=== PATIENT | male | born 1950 | race Caucasian/White ===

== ENCOUNTER 2024-12-01 13:19 | Outpatient (OUT) | payer MEDICARE, SELFPAY ==
--- NOTE | 2024-12-01 14:03 | PM.PRESUREVA ---
History of Present Illness History of Present Illness Chief complaint: left kidney stone Narrative: Patient presents for presurgical testing. Please see HPI from Dr. Haley dated November 21, 2024. Review of Systems ROS Narrative Please see ROS from Dr. Haley dated November 21, 2024. [facility] Medical History (Updated 12/01/24 @ 13:36 by Nerissa Sheppard NP) Amputation toe ?S98.139A - Complete traumatic amputation of one unspecified lesser toe, initial encounter (ICD-10) Ureteral stone ?N20.1 - Calculus of ureter (ICD-10) Hypertension ?I10 - Essential (primary) hypertension (ICD-10) Hypercholesterolemia ?E78.00 - Pure hypercholesterolemia, unspecified (ICD-10) Atrial fibrillation ?I48.91 - Unspecified atrial fibrillation (ICD-10) Asthma ?J45.909 - Unspecified asthma, uncomplicated (ICD-10) Kidney stones ?N20.0 - Calculus of kidney (ICD-10) Anticoagulated ?Z79.01 - [facility] (current) use of anticoagulants (ICD-10) Bradycardia ?R00.1 - Bradycardia, unspecified (ICD-10) History of cardioversion ?Z92.89 - Personal history of other medical treatment (ICD-10) Right bundle branch block ?I45.10 - Unspecified right bundle-branch block (ICD-10) Surgical History (Updated 12/01/24 @ 13:52 by Nerissa Sheppard NP) S/P cataract extraction and insertion of intraocular lens ?Z98.49 - Cataract extraction status, unspecified eye (ICD-10) ?Z96.1 - Presence of intraocular lens (ICD-10) H/O colonoscopy ?Z98.890 - Other specified postprocedural states (ICD-10) History of lithotripsy ?Z98.890 - Other specified postprocedural states (ICD-10) Family History (Updated 12/01/24 @ 13:52 by Nerissa Sheppard NP) Other Family history of Parkinson disease Family history of colon cancer Family history of hypertension Social History (Updated 12/01/24 @ 13:48 by Nerissa Sheppard NP) Within the past year, how often did you have a drink containing alcohol: never Score interpretation: A score less than 4 is consistent with normal alcohol consumption. Smoking status: Never smoker Non-prescribed substance use: denies use Highest level of school completed/degree received: some college, no degree Meds Home Medications and Allergies Home Medications ?Medication ?Instructions ?Recorded ?Confirmed ?Type albuterol sulfate 90 mcg/actuation 2 inh inhalation Q6H PRN 12/01/24 12/01/24 History aerosol inhaler bronchospasm amlodipine 10 mg-valsartan 160 mg 1 tab PO DAILY 12/01/24 12/01/24 History tablet aspirin 81 mg tablet,delayed 81 mg PO DAILY 12/01/24 12/01/24 History release (Adult Aspirin Regimen) atorvastatin 20 mg tablet 20 mg PO DAILY 12/01/24 12/01/24 History budesonide-formoterol HFA 160 1 inh inhalation Q12H 12/01/24 12/01/24 History mcg-4.5 mcg/actuation aerosol inhaler dofetilide 250 mcg capsule 250 mcg PO BID 12/01/24 12/01/24 History metoprolol succinate 50 mg 50 mg PO DAILY 12/01/24 12/01/24 History tablet,extended release 24 hr rivaroxaban 20 mg tablet (Xarelto) 20 mg PO Q24H 12/01/24 12/01/24 History tamsulosin 0.4 mg capsule 0.4 mg PO DAILY 12/01/24 12/01/24 History Allergies Allergy/AdvReac Type Severity Reaction Status Date / Time No Known Drug Allergies Allergy Verified 12/01/24 13:44 Exam Narrative Exam Narrative: Constitutional: Awake, alert, comfortable, well-appearing, nontoxic, interactive, vital signs as charted Head: Normocephalic, atraumatic Neck: Supple, normal appearance, normal range of motion, no meningeal signs, no lymphadenopathy Respiratory: No respiratory distress, breath sounds clear Cardiovascular: Regular rate and rhythm, strong and regular heart tones Abdomen: Nontender, normal bowel sounds, soft, no CVA tenderness Musculoskeletal: Normal gait, no swelling or edema Skin: No rashes or induration, no lesions, only visible skin inspected Neuro: No neurological deficits, normal sensation Psychiatric: Oriented ?3, normal affect Assessment and Plan Assessment and Plan (1) Kidney stones: Plan Left ESWL, possible cystoscopy, left retrograde, left ureteroscopy, holmium laser, possible left stent placement scheduled with Dr. Haley December 15, 2024.
[2024-12-01 14:11] LABS: Basophils Absolute Auto 0.1 10^3/uL (0.0-0.1); Basophils Percent Auto 0.5 % (0.2-2.0); Eosinophils Absolute Auto 0.1 10^3/uL (0.0-0.7); Eosinophils Percent Auto 1.3 % (0.9-7.0); Hematocrit 39.7 % (42.0-54.0); Hemoglobin 13.5 g/dL (14.0-18.0); Immature Granulocytes Abs Auto 0.07 10^3/uL (0.00-0.03); Immature Granulocytes Pct Auto 0.7 % (0.0-0.5); Lymphocytes Absolute Auto 1.7 10^3/uL (1.2-3.8); Lymphocytes Percent Auto 17.6 % (20.5-60.0); Mean Corpuscular Volume 88.2 fL (80.0-94.0); Mean Platelet Volume 9.3 fL (9.5-13.5); Monocytes Percent Auto 10.6 % (1.7-12.0); Neutrophils Absolute Auto 6.5 10^3/uL (1.4-6.5); Neutrophils Percent Auto 69.3 % (43.0-75.0); Platelet Count 233 10^3/uL (150-450); Red Cell Distribution Width 12.7 % (11.0-15.0); White Blood Count 9.4 10^3/uL (4.0-11.0)
[2024-12-01 14:17] LABS: Anion Gap 13.6; BUN Creatinine Ratio 9.6; Calcium 8.8 mg/dL (8.5-10.1); Carbon Dioxide 25.1 mmol/L (21.0-32.0); Chloride 103 mmol/L (98-107); Estimated GFR (African America >60 (>=60 mL/min/1.73m^2); Estimated GFR (Non-African Ame >60 (>=60 mL/min/1.73m^2); Glucose 153 mg/dL (74-106); Potassium 3.7 mmol/L (3.5-5.1); Sodium 138 mmol/L (136-145)
[2024-12-01 14:39] LABS: INR 1.17; Partial Thromboplastin Time 35.8 sec (22.3-36.2); Prothrombin Time 12.2 sec (9.0-11.6)
== END 2024-12-01 13:20 | disposition home or self-care (01) ==
LOC: PST 13:20
PROVIDERS: PCP Family Medicine; Visit Provider Urology
DX: Z01.812 Encounter for preprocedural laboratory examination (principal); Z01.818 Encounter for other preprocedural examination; N20.0 Calculus of kidney
CPT/HCPCS: 80048; 85025; 85610; 85730; G0463

== ENCOUNTER 2024-12-15 07:35 | Day surgery (SDC) | payer MEDICARE, SELFPAY ==
[2024-12-01 14:00] VITALS: BP 156/71; PULSE 77; TEMP 36.5; O2SAT 96; BMI 27.4
[2024-12-15] VITALS (12 sets, daily range): BP systolic 102–138; BP diastolic 62–76; PULSE 59–80; TEMP 36.4–36.6; O2SAT 90–95; BMI 27.1
--- OUTSIDE RECORDS SUMMARY | 2024-12-15 07:39 | XMS_ITS | CCD ---
Author Organization [facility] Care Team Providers Care Hall Clerk Name Role Phone Zane Velasco Unavailable Unavailable Unavailable ZANE VELASCO Primary Care Physician [phone] Unavailable Unavailable ISAURA DEL ROSARIO Consulting Unavailable ISAURA DEL ROSARIO Admitting Unavailable KRISTA, DR NORRIS Primary Care Unavailable ISAURA DEL ROSARIO Attending Unavailable ISAURA DEL ROSARIO Admitting Unavailable KRISTA, DR NORRIS Primary Care Unavailable HANANE, DR NANCY Greene Consulting Unavailable ISAURA DEL ROSARIO Attending Unavailable ISAURA DEL ROSARIO Consulting Unavailable MEKORYUK, DR SILVERIO Camilo Consulting Unavailable KRISTA, DR NORRIS Primary Care Unavailable CALLUM HATFIELD, DR TRINITY Greenberg Attending Unavaildany NOLEN JR, DR TRINITY Greenberg Admitting Unavaildany NOLEN JR, DR TRINITY Greenberg Consulting Unavaildany e Unavailable Unavailable DO Zane Velasco Primary Care Provider [phone] DO Herminio Rogel Emergency Provider DO Filipe Reynolds Admit Provider DO Filipe Reynolds Attending Provider MD Asif Bautista Attending Provider [phone] MD Ozzy Chan Other Provider Ozzy Chan Unavailable Unavailable Unavailable Sandra Rai Attending Unavailable Sandra Rai Referring Unavailable Dr. Zane Velasco Primary Care Unavaila Sandra Mohamud Attending Unavailable Sandra Rai Referring Unavailable Dr. Zane Velasco Primary Care Unavaila ble Zane Velasco DO Primary Care Provider [phone] DO Zane Velasco Primary Care Provider [phone] ZAN Del Rosario Attending Provider Zane Velasco DO Primary Care Provider Miguel Ángel ZULUAGA, Isaura Swanson Attending Provider Zane Velasco DO Primary Care Provider [phone] Miguel Ángel ZULUAGA, Isaura Swanson Attending Provider Nick Metz MD Attending Provider Nick METZ Attending Unavailable Nick METZ Attending Unavailable MIGUEL ÁNGEL, ISAURA Swanson Attending Unavailable MIGUEL ÁNGEL, ISAURA Swanson Attending Unavailable Miguel Ángel, Isaura Swanson Admitting Unavailable Miguel Ángel, Isaura Swanson Attending Unavailable Zane Velasco Primary Care Unavailable Miguel Ángel, Isaura Swanson Admitting Unavailable Miguel Ángel, Isaura Swanson Attending Unavailable Zane Velasco [facility] Unavailable Nick Metz Attending Unavailable [facility] Un[facility] Nick Metz Admitting Unavailable Zane Velasco DO Primary Care Provider Frank LEWIS Kevin Yari Unavailable [phone] Zane Velasco DO Primary Care Provider SANDRA RAI Attending Unavailable SANDRA RAI Referring Unavailable ZANE VELASCO [facility] Unavailable SANDRA RAI Attending Unavailable ZANE VELASCO [facility] Unavailable Allergies Allergy Classification Reported Allergen(s) Allergy Type Date of Onset Reaction(s) Facility (1 source) No Known Medication Allergies; Translations: [No Known Medication Allergies] Propensity to adverse reactions (disorder) [facility] Repository Medications Current Medications Medication Drug Class(es) Dates Sig (Normalized) Sig (Original) [id number] 200 actuat albuterol 0.09 mg/actuat metered dose inhaler (20 sources) beta2-Adrenergic Agonist Start: 05-10-2024 take 2 puff(s) by mouth every four hours as needed albuterol HFA 90 mcg/act inhaler Indications: Asthma, unspecified asthma severity, unspecified whether complicated, unspecified whether persistent ([facility]) INHALE 2 PUFFS BY MOUTH EVERY 4 HOURS NEEDED FOR SHORTNESS OF BREATH 18 g 05/10/2024 Active Start: 03-09-2024 Albuterol Sulf ate (Ventolin Hfa) 90 mcg/actuation HFA aerosol inhaler Active 2 INH INHALATION Q4H as needed for shortness of breath or wheezing 1 March 09, 2024 11:43am Start: 07-16-2021 take 2 puff(s) by in halation every six hours albuterol 90 mcg/actuation inhaler Inhale 2 puffs every 6 hours if needed. 07/16/2021 Active Start: 07-16-2021 take 2 puff(s) by mo [facility] every six hours as needed Albuterol Sulfate HFA 108 (90 Base) MCG/ACT Inhalation Aerosol Solution INHALE 2 PUFFS BY MOUTH EVERY 6 HOURS NEEDED Quantity: 18 Refills: 0 Ordered: 07-Oct-2021 DO Start : 16-Jul-2021 Active Start: 10-19-2019 End: 03-09-2024 take 1 puff(s) by inhalation every four hours as needed for wheezing Albuterol Sulfate (Ventolin Hfa) 90 mcg/actuation HFA aerosol inhaler Discontinued 2 PUFF INHALATION Q4H as needed for shortness of breath or wheezing 8.5 30 March 08, 2024 1:59pm March 09, 2024 11:48am take 1 puff(s) by in halation every four hours as needed Ventolin HFA 108 (90 Base) MCG/ACT Inhalation Aerosol Solution INHALE 1 PUFF EVERY 4 HOURS NEEDED. Quantity: 0 Refills: 0 Ordered: 29-Oct-2021 DO Active take 2 puff(s) by in halation every six hours as needed Ventolin HFA 108 (90 Base) MCG/ACT 2 puffs Inhalation every 6 hrs as needed for 30 days PRN Active take 1 puff(s) by in halation every four hours as needed Ventolin HFA 108 (90 Base) MCG/ACT 1 puff as needed Inhalation every 4 hrs PRN Active albuterol CFC free 90 mcg/inh inhalation aerosol (6 sources) Start: 12-24-2021 take 2 puff(s) by inhalation every six hours as needed for wheezing albuterol CFC free 90 mcg/inh inhalation aerosol = 2 puff(s), Inhalation, q6hr, PRN Shortness of breath or wheezing, Refills(s) 0 Start Date: 12/24/21 Status: Ordered Start: 12-24-2021 albuterol CFC free 90 mcg/inh inhalation aerosol Refills(s) 0 Start Date: 12/24/21 Status: Ordered amLODIPine 10 mg / valsartan 160 mg oral tablet (10 sources) Dihydropyridine Calcium Channel Theodora, Angiotensin 2 Receptor Theodora Start: 02-23-2024 End: 08-01-2025 take 1 tablet by mouth once daily amlodipine-valsartan (Exforge) 10-160 mg tablet Indications: Essential (primary) hypertension Take 1 tablet by mouth once daily. 90 tablet 3 08/01/2024 08/01/2025 Active Start: 05-21-2023 take 1 tablet by shady th once daily amLODIPine Besylate-Valsartan 10-160 MG Oral Tablet TAKE 1 TABLET DAILY. Quantity: 90 Refills: 3 Ordered: 21-May-2023 Sandra Rai MD Start : 21-May-2023 Active stop amlodipine 10mg daily aspirin 81 mg oral capsule (20 sources) Platelet Aggregation Inhibitor, Nonsteroidal Anti-inflammatory Drug Start: 12-24-2021 aspirin 81 mg ora l capsule 81 mg = 1 cap(s), Oral, , Refills(s) 0, Blood Thinner Start Date: 12/24/21 Status: Ordered Start: 10-29-2021 End: 12-08-2024 take 1 tablet by mouth two times weekly aspirin 81 mg EC tablet Take 1 tablet (81 mg) by mouth 2 times a week. 10/29/2021 12/08/2024 Discontinued (Med List Cleanup) Start: 10-29-2021 Aspirin EC 81 MG TBEC TAKE 1 TABLET Weekly Quantity: 12 Refills: 3 Ordered: 11-Nov-2022 Sandra Rai MD Start : 29-Oct-2021 Active Start: 01-25-2020 take 1 tablet by shady th two times weekly Aspirin 81 mg Tablet,Chewable Active 81 MG PO Twice a Week January 25, 2020 12:00am twice a week Thursday and Thursday atorvastatin 20 mg oral tablet (20 sources) HMG-CoA Reductase Inhibitor Start: 01-25-2020 End: 11-25-2024 take 1 tablet by mouth once daily at bedtime atorvastatin (Lipitor) 20 mg tablet Indications: Essential hypertension Take 1 tablet (20 mg) by mouth once daily at bedtime. 90 tablet 3 11/26/2023 Active 120 actuat budesonide 0.16 mg/actuat / formoterol fumarate 0.0045 mg/actuat metered dose inhaler (20 sources) Corticosteroid, beta2-Adrenergic Agonist Start: 08-19-2024 take 1 puff(s) by inhalation twice daily Budesonide-Formote rol 160-4.5 mcg/actuation HFA aerosol inhaler Active 2 PUFF INHALATION Twice daily 3 90 August 19, 2024 12:07pm Start: 02-17-2023 take 2 puff(s) by mo uth twice daily Symbicort 160-4.5 MCG/ACT inhaler Indications: Unspecified asthma, uncomplicated ([facility]) INHALE 2 PUFFS BY MOUTH TWICE DAILY 30.6 g 3 02/17/2023 Active Start: 10-19-2019 End: 08-19-2024 take 1 puff(s) by inhalation twice daily Budesonide-Formoterol 160-4.5 mcg/actuation Hfa Aerosol Inhaler Discontinued 2 PUFF INHALATION Twice daily October 19, 2019 1:00am August 19, 2024 12:08pm Start: 10-19-2019 End: 08-19-2024 take 1 puff(s) by inhalation twice daily Budesonide-Formoterol 160-4.5 mcg/actuation Hfa Aerosol Inhaler Discontinued 2 PUFF INHALATION Twice daily October 19, 2019 12:00am August 19, 2024 11:08am Start: 10-19-2019 take 1 puff(s) by in halation twice daily Budesonide-Formoterol Active 2 PUFF INHALATION Twice daily October 19, 2019 1:00am budesonide-formo teroL (Symbicort) 160-4.5 mcg/actuation inhaler Use as directed Active budesonide-formo teroL (Symbicort) 160-4.5 mcg/actuation inhaler Use as directed 0 Active Budesonide-Formo terol Fumarate 160-4.5 MCG/ACT Inhalation Aerosol USE DIRECTED. Quantity: 0 Refills: 0 Ordered: 29-Oct-2021 DO Active take 2 puff(s) by in halation twice daily Budesonide-Formoterol Fumarate 160-4.5 MCG/ACT 2 puffs Inhalation Twice a day for 30 days Active budesonide-formoterol 160 mcg-4.5 mcg/inh Inh Aer w/adapter (6 sources) Start: 12-24-2021 take 1 puff(s) by inhalation twice daily budesonide-formoterol 160 mcg-4.5 mcg/inh Inh Aer w/adapter puff(s), Inhalation, BID, Refill(s) 0, Asthma Start Date: 12/24/21 Status: Ordered Start: 12-24-2021 take 1 puff(s) by in halation twice daily budesonide-formoterol 160 mcg-4.5 mcg/inh Inh Aer w/adapter puff(s), Inhalation, BID, Refill(s) 0 Start Date: 12/24/21 Status: Ordered dofetilide 0.25 mg oral capsule (20 sources) Antiarrhythmic Start: 04-11-2024 End: 04-11-2025 take 1 capsule by mouth twice daily dofetilide (Tikosyn) 250 mcg capsule Indications: Persistent atrial fibrillation (Multi) Take 1 capsule (250 mcg) by mouth 2 times a day. 180 capsule 3 04/11/2024 04/11/2025 Active Start: 12-24-2021 take 1 capsule by [facility] twice daily dofetilide 250 mcg oral capsule 250 mcg = 1 cap(s), Oral, BID, Refills(s) 0, Irregular heartbeat Start Date: 12/24/21 Status: Ordered Start: 12-24-2021 take 1 capsule by [facility] twice daily dofetilide 250 mcg oral capsule 250 mcg = 1 cap(s), Oral, BID, Refills(s) 0, Irregular heartbeat Start Date: 12/24/21 Status: Ordered Start: 01-26-2020 take 1 capsule by [facility] every twelve hours Dofetilide 250 mcg Capsule Active 250 MCG PO Q12H 180 90 January 26, 2020 12:00am 24 hr metoprolol succinate 50 mg extended release oral tablet (20 sources) beta-Adrenergic Theodora Start: 01-26-2020 End: 08-09-2024 take 1 tablet by mouth once daily metoprolol succinate XL (Toprol-XL) 50 mg 24 hr tablet Indications: Essential hypertension , Persistent atrial fibrillation (Multi) TAKE 1 TABLET BY MOUTH ONCE DAILY 90 tablet 3 08/01/2024 Active Start: 10-19-2019 End: 01-27-2020 Metoprolol Succinate 100 mg Capsule,Sprinkle,Er 24hr Discontinued 150 MG PO Daily October 19, 2019 1:00am January 27, 2020 12:01pm Start: 10-19-2019 End: 01-27-2020 take 150 mg by mouth once daily Metoprolol Succinate Discontinued 150 MG PO Daily October 19, 2019 1:00am January 27, 2020 12:01pm take 1 tablet by shady th once daily metoprolol succinate XL (Toprol-XL) 100 MG 24 hr tablet Take 100 mg by mouth 1 (one) time each day at the same time. Active rivaroxaban 20 mg oral tablet (20 sources) Factor Xa Inhibitor Start: 10-19-2019 End: 06-27-2025 take 1 tablet by mouth once daily Xarelto 20 mg tablet Indications: Persistent atrial fibrillation (Multi) Take 1 tablet (20 mg) by mouth once daily. 90 tablet 3 06/27/2024 06/27/2025 Active tamsulosin hydrochloride 0.4 mg oral capsule (1 source) alpha-Adrenergic Theodora Start: 10-14-2024 take 1 capsule by mouth once daily tamsulosin (Flomax) 0.4 mg 24 hr capsule Take 1 capsule (0.4 mg) by mouth once daily. 10/14/2024 Active valACYclovir 1000 mg oral tablet (1 source) Herpesvirus Nucleoside Analog DNA Polymerase Inhibitor, Herpes Simplex Virus Nucleoside Analog DNA Polymerase Inhibitor, Herpes Zoster Virus Nucleoside Analog DNA Polymerase Inhibitor valACYclovir (Valtrex) 1 g tablet 1 (one) time each day at the same time. Active Completed/Discontinued Medications Medication Drug Class(es) Dates Sig (Normalized) Sig (Original) amiodarone hydrochloride 200 mg oral tablet (14 sources) Antiarrhythmic Start: 10-20-2019 End: 01-27-2020 take 1 tablet by mouth once daily Amiodarone 200 mg tablet Discontinued 200 MG PO Daily October 20, 2019 1:00am January 27, 2020 12:01pm Start: 10-19-2019 End: 10-20-2019 take 1 tablet by mouth twice daily Amiodarone 200 mg Tablet Discontinued 200 MG PO Twice daily October 19, 2019 1:00am October 20, 2019 2:40pm amLODIPine 10 mg oral tablet (19 sources) Dihydropyridine Calcium Channel Theodora Start: 08-22-2013 End: 03-08-2024 take 1 tablet by mouth once daily Amlodipine 10 mg Tablet Discontinued 10 MG PO Daily October 19, 2019 1:00am March 08, 2024 1:43pm azithromycin 250 mg oral tablet (6 sources) Macrolide Antimicrobial Start: 01-07-2023 End: 03-08-2024 take 1 tablet by mouth once daily Azithromycin 250 mg tablet Discontinued 250 MG PO Daily 4 January 07, 2023 12:00am March 08, 2024 1:41pm cefdinir 300 mg oral capsule (6 sources) Cephalosporin Antibacterial Start: 01-07-2023 End: 03-08-2024 take 1 capsule by mouth twice daily Cefdinir 300 mg capsule Discontinued 300 MG PO Twice daily 8 January 07, 2023 12:00am March 08, 2024 1:41pm predniSONE 10 mg oral tablet (6 sources) Start: 01-07-2023 End: 03-08-2024 Prednisone 10 mg tablet Discontinued 10 MG PO Daily January 07, 2023 12:00am March 08, 2024 1:41pm Take 4 tabs daily x 3 days, then 2 tabs daily x 3 days, then 1 tab daily x 7 days then stop. Take with food. Problems Active Problems Problem Classification Problem Date Documented Da te Episodic/Chronic Acute bronchitis (7 sources) Acute bronchitis; Translations: [Acute bronchitis, unspecified] 01-05-2023 Episodic Asthma (11 sources) Asthma; Translations: [Asthma, unspecified type, unspecified] Onset: 02-17-2023 12-24-2021 Chronic Cardiac dysrhythmias (20 sources) Persistent atrial fibrillation; Translations: [Atrial fibrillation] Onset: 02-17-2023 12-24-2021 Chronic Chronic obstructive pulmonary disease and bronchiectasis (20 sources) Acute exacerbation of chronic obstructive airways disease; Translations: [Chronic obstructive pulmonary disease with (acute) exacerbation] 01-05-2023 Chronic Conduction disorders (11 sources) Right bundle branch block; Translations: [Right bundle branch block] Onset: 06-19-2023 06-19-2023 Chronic Coronary atherosclerosis and other heart disease (7 sources) Coronary atherosclerosis; Translations: [Atherosclerotic heart disease of [place] coronary artery without angina pectoris] 01-25-2020 Chronic Disorders of lipid metabolism (20 sources) Hypercholesterolemi a; Translations: [Dyslipidemia] Onset: 02-17-2023 12-24-2021 Chronic Essential hypertension (20 sources) Essential hypertension; Translations: [Unspecified essential hypertension] Onset: 02-17-2023 12-24-2021 Chronic Gastrointestinal hemorrhage (6 sources) Hematochezia; Translations: [Melena] 02-22-2024 Episodic Genitourinary symptoms and ill-defined conditions (1 source) Microscopic hematuria; Translations: [Asymptomatic microscopic hematuria] Onset: 02-12-2022 Episodic Other aftercare (6 sources) Drug therapy finding; Translations: [Long-term (current) use of other medications] Episodic Other aftercare (1 source) Long-term current use of anticoagulant; Translations: [truck terminal manager (current) use of anticoagulants] Onset: 02-12-2022 Episodic Other aftercare (2 sources) Taking high risk medication; Translations: [Other intermodal dispatcher (current) drug therapy] 11-26-2023 Episodic Other nutritional; endocrine; and metabolic disorders (12 sources) Overweight in adulthood with body mass index of 25 or more but less than 30; Translations: [Overweight] Onset: 06-19-2023 11-26-2023 Episodic Other nutritional; endocrine; and metabolic disorders (1 source) Overweight; Translations: [Overweight] 12-08-2024 Episodic Other upper respiratory infections (9 sources) Upper respiratory infection; Translations: [Acute upper respiratory infection, unspecified] 01-05-2023 Episodic Respiratory failure; insufficiency; arrest (adult) (6 sources) Acute respiratory failure; Translations: [Acute respiratory failure with hypoxia] 01-07-2023 Episodic Unclassified (2 sources) Asymptomatic microscopic hematuria 02-17-2023 Unclassified (2 sources) Drug therapy finding 02-17-2023 Unclassified (3 sources) Patient encounter status 02-17-2023 Unclassified (2 sources) Other persistent atrial fibrillation; Translations: [Other persistent atrial fibrillation] Onset: 06-19-2023 Viral infection (5 sources) Herpes zoster 01-08-2022 Episodic Past or Other Problems Problem Classification Problem Date Documented Date Episodic/Chronic Calculus of urinary tract (15 sources) Kidney stone; Translations: [Calculus of kidney] Onset: 12-24-2021 Episodic Other nutritional; endocrine; and metabolic disorders (2 sources) Body mass index (BMI) 27.0-27.9, adult; Translations: [Body mass index (BMI) 27.0-27.9, adult] Onset: 07-12-2024 Episodic Other screening for suspected conditions (not mental disorders or infectious disease) (20 sources) Electrocardiogram abnormal; Translations: [Nonspecific abnormal electrocardiogram [ECG] [EKG]] Onset: 02-12-2022 Episodic Screening and history of mental health and substance abuse codes (14 sources) Ex-smoker; Translations: [Personal history of tobacco use] Onset: 06-19-2023 11-26-2023 Episodic Unclassified (2 sources) Onset: 07-12-2024 07-12-2024 Results Test Name Value Interpretation Reference Range Facility ECG 12 Leadon 12-08-2024 ECG revealed normal sinus rhythm, left axis deviation, incomplete right bundle branch block, abnormal ECG. [facility] Work Phone: ALL BASIC METABOLIC PANELon 12-01-2024 Anion gap [Moles/Vol] 13.6 mmol/L NO [facility] Calcium [Mass/Vol] 8.8 mg/dL 8.5 - 10. 1 mg/dL [facility] Chloride [Moles/Vol] 103 mmol/L 98 - 10 7 mmol/L [facility] CO2 [Moles/Vol] 25.1 mmol/L 21.0 - 32.0 mmol/L [facility] Creatinine [Mass/Vol] 1.15 mg/dL 0.70 - 1.30 mg/dL [facility] GFR/1.73 sq M.predicted CKD-EPI (S/P/Bld) [Vol rate/Area] >60 >=60 mL/min/1.7 3m 2 [facility] Glucose [Mass/Vol] 153 mg/dL High 74 - 106 mg/dL [facility] Interpretation and review of laboratory results Abnormal [facility] Potassium [Moles/Vol] 3.7 mmol/L 3.5 - 5.1 mmol/L [facility] Sodium [Moles/Vol] 138 mmol/L 136 - 145 mmol/L [facility] EGFR-NON AF [place] >60 >=60 mL/min/1.7 3m 2 [facility] Urea nitrogen [Mass/Vol] 11 mg/dL 7.0 - 18.0 mg/dL [facility] Urea nitrogen/Creatinine [Mass ratio] 9.6 mg/mg [facility] X-ray reportOrdered By: Ezequiel Bahena on 11-22-2024 Study report [facility] [place] [address] XRay Report Signed Patient: Santhosh Torres MR#: [id number] : 1950 Acct:[id number] Age/Sex: 73 / M ADM Date: 5 Loc: ICXD Room: Type: REG CLI Attending Dr: Nick Metz MD Copies to: Nick Metz MD~ Ordering Provider: Nick Metz MD Date of Service: 11/22/24 XR/XR KUB: KIDNEY STONE Single view of abdomen COMPARISON: 02/15/2024 HISTORY: Recheck stones THORAX: Lung bases unremarkable. FREE AIR: Supine position limits assessment BOWEL: No gaseous intestinal distention. STOOL: No significant stool RENAL STONES: Left inferior renal calculi measuring up to 4 mm redemonstrated. VASCULAR CALCIFICATIONS: Unremarkable SOFT TISSUE: Unremarkable BONES: Unremarkable POSTSURGICAL CHANGES: None XR/XR KUB IMPRESSION: Similar left nephrolithiasis. Impression dictated by: Avni Bahena M.D.11/22/2024 4:39 PM Dictation Location: [place] [address] Transcribed By: [facility] 11/22/24 1639 Dictated By: Avni Bahena DO 11/22/24 1638 Signed By: 11/22/24 1639 [facility] XR KUBon 11-22-2024 XR KUB [facility] [address] [address] XRay Report Signed Patient: Santhosh Torres MR#: [id number] : 1950 Acct:[id number] Age/Sex: 73 / M ADM Date: 11/22/24 Loc: ICXD Room: Type: REG CLI Attending Dr: Nick Metz MD Copies to: Nick Metz MD Ordering Provider: Nick Metz MD Date of Service: 11/22/24 XR/XR KUB: KIDNEY STONE Single view of abdomen COMPARISON: 02/15/2024 HISTORY: Recheck stones THORAX: Lung bases unremarkable. FREE AIR: Supine position limits assessment BOWEL: No gaseous intestinal distention. STOOL: No significant stool RENAL STONES: Left inferior renal calculi measuring up to 4 mm redemonstrated. VASCULAR CALCIFICATIONS: Unremarkable SOFT TISSUE: Unremarkable BONES: Unremarkable POSTSURGICAL CHANGES: None XR/XR KUB IMPRESSION: Similar left nephrolithiasis. Impression dictated by: Avni Bahena M.D.11/22/2024 4:39 PM Dictation Location: [place] [address] Transcribed By: [facility] 11/22/24 1639 Dictated By: Avni Bahena DO 11/22/24 1638 Signed By: 11/22/24 1639 Normal [facility] Ambulatory Visit Summaryon 0 11-21-2024 Ambulatory Visit Summary Ambulatory Visit Summary SANTHOSH TORRES :1950 Visit Date:11/21/2024 Ambulatory Visit Instructions Your Diagnosis Ureteral stone Kidney stones Anticoagulated Tests Performed XR Abdomen 1 View -- Results Pending -- Please visit your patient portal for your results or contact your primary care physician. Your Care Team Attending Physician - Nick METZ MD Primary Care Physician - ZANE VELASCO DO This Is Your Medications List tamsulosin (Flomax 0.4 mg Cap) Contact prescribing physician if questions or concerns albuterol (albuterol CFC free 90 mcg/inh inhalation aerosol) amlodipine-valsartan (amlodipine-valsartan 10 mg-160 mg oral tablet) aspirin (aspirin 81 mg oral capsule) atorvastatin (atorvastatin 20 mg Tab) budesonide-formoterol (budesonide-formoterol 160 mcg-4.5 mcg/inh Inh Aer w/adapter) dofetilide (dofetilide 250 mcg oral capsule) metoprolol (metoprolol 50 mg ER Tab) rivaroxaban (Xarelto 20 mg oral tablet) Procedures Performed Fluoroscopy guided ESWL (extracorporeal shockwave lithotripsy) of calculus of left kidney (01/16/2022), Amputation of toe, Cataract, Colonoscopy, ESWL - Extracorporeal shockwave lithotripsy for renal calculus. Discharge Vitals Temperature (Temporal Artery) 37 ???C Heart Rate (Peripheral) 72 Respiratory Rate 18 Blood Pressure 138/77 Height 178 cm Height 70 in Weight 89.6 kg Weight 197.534 lb BMI 28.28 What to do next You Need to Schedule the Following Appointments Follow Up with LASHAY GONZALEZ, FRANCISCO Schulte When: Where: [facility] [address], [place] [address] [phone] Medications What How Much When Instructions Unchanged tamsulosin (Flomax 0.4 mg Cap) 1-2 cap(s) By Mouth Every day Unchanged albuterol (albuterol CFC free 90 mcg/ inh inhalation aerosol) 2 Puffs Inhalation Every 6 hours as needed for Shortness of breath or wheezing Contact prescribing physician if questions or concerns Unchanged amlodipine-valsartan (amlodipine-valsartan 10 mg-160 mg oral tablet) TAKE 1 TABLET DAILY. Contact prescribing physician if questions or concerns Unchanged aspirin (aspirin 81 mg oral capsule) 1 Capsules By Mouth Thursday & Thursday Contact prescribing physician if questions or concerns Unchanged atorvastatin (atorvastatin 20 mg Tab) 1 Tablets By Mouth At bedtime Contact prescribing physician if questions or concerns Unchanged budesonide-formoterol (budesonide-formoterol 160 mcg-4.5 mcg/ inh Inh Aer w/ adapter) Inhalation 2 times a day Contact prescribing physician if questions or concerns Unchanged dofetilide (dofetilide 250 mcg oral capsule) 1 Capsules By Mouth 2 times a day Contact prescribing physician if questions or concerns Unchanged metoprolol (metoprolol 50 mg ER Tab) 1 Tablets By Mouth Every day Contact prescribing physician if questions or concerns Unchanged rivaroxaban (Xarelto 20 mg oral tablet) 1 Tablets By Mouth Once a day (in the evening) Contact prescribing physician if questions or concerns Allergies No Known Medication Allergies Problems Ongoing - Any problem that you are currently receiving treatment for. Anticoagulated Asthma Asymptomatic microscopic hematuria Atrial fibrillation High blood cholesterol High blood pressure Kidney stones Prostate cancer screening Ureteral stone Patient Survey You may receive a survey via text or e-mail asking about your office visit. Please share your experience with us by completing your survey. We appreciate your feedback and thank you for choosing us for your care. Education Materials Ureteroscopy Ureteroscopy is a procedure to check for and treat problems inside part of the urinary tract. In this procedure, a long rigid or flexible tube with a lens and light at the end (ureteroscope) is used to look at the inside of the kidneys and the ureters. The ureters are the tubes that carry urine from the kidneys to the bladder. The ureteroscope is inserted into one or both of the ureters. You may need this procedure if you have frequent urinary tract infections (UTIs), blood in your urine, or a stone in one or both of your ureters. A ureteroscopy can be done: ??? To find the cause of urine blockage in a ureter and to evaluate other abnormalities inside the ureters or kidneys. ??? To remove stones. ??? To remove or treat growths of tissue (polyps), abnormal tissue, and some types of tumors. ??? To remove a tissue sample and check it for disease under a microscope (biopsy). Tell a health care provider about: ??? Any allergies you have. ??? All medicines you are taking, including vitamins, herbs, eye drops, creams, and nljb-laa-osdfuom medicines. ??? Any problems you or family members have had with anesthetic medicines. ??? Any bleeding problems you have. ??? Any surgeries you have had. ??? Any medical conditions you have. ??? Whether you are pregna (more content not included)... Normal [facility] Ambulatory Visit Summary Ambulatory Visit Summary SANTHOSH TORRES :1950 Visit Date:11/21/2024 Ambulatory Visit Instructions Your Diagnosis Ureteral stone Kidney stones Anticoagulated Tests Performed XR Abdomen 1 View -- Results Pending -- Please visit your patient portal for your results or contact your primary care physician. Your Care Team Attending Physician - Nick METZ MD Primary Care Physician - ZANE VELASCO DO This Is Your Medications List tamsulosin (Flomax 0.4 mg Cap) Contact prescribing physician if questions or concerns albuterol (albuterol CFC free 90 mcg/inh inhalation aerosol) amlodipine-valsartan (amlodipine-valsartan 10 mg-160 mg oral tablet) aspirin (aspirin 81 mg oral capsule) atorvastatin (atorvastatin 20 mg Tab) budesonide-formoterol (budesonide-formoterol 160 mcg-4.5 mcg/inh Inh Aer w/adapter) dofetilide (dofetilide 250 mcg oral capsule) metoprolol (metoprolol 50 mg ER Tab) rivaroxaban (Xarelto 20 mg oral tablet) Procedures Performed Fluoroscopy guided ESWL (extracorporeal shockwave lithotripsy) of calculus of left kidney (01/16/2022), Amputation of toe, Cataract, Colonoscopy, ESWL - Extracorporeal shockwave lithotripsy for renal calculus. Discharge Vitals Temperature (Temporal Artery) 37 ???C Heart Rate (Peripheral) 72 Respiratory Rate 18 Blood Pressure 138/77 Height 178 cm Height 70 in Weight 89.6 kg Weight 197.534 lb BMI 28.28 What to do next You Need to Schedule the Following Appointments Follow Up with LASHAY GONZALEZ, FRANCISCO Schulte When: Where: [facility] [address] , [place] [address] [phone] Medications What How Much When Instructions Unchanged tamsulosin (Flomax 0.4 mg Cap) 1-2 cap(s) By Mouth Every day Unchanged albuterol (albuterol CFC free 90 mcg/ inh inhalation aerosol) 2 Puffs Inhalation Every 6 hours as needed for Shortness of breath or wheezing Contact prescribing physician if questions or concerns Unchanged amlodipine-valsartan (amlodipine-valsartan 10 mg-160 mg oral tablet) TAKE 1 TABLET DAILY. Contact prescribing physician if questions or concerns Unchanged aspirin (aspirin 81 mg oral capsule) 1 Capsules By Mouth Thursday & Thursday Contact prescribing physician if questions or concerns Unchanged atorvastatin (atorvastatin 20 mg Tab) 1 Tablets By Mouth At bedtime Contact prescribing physician if questions or concerns Unchanged budesonide-formoterol (budesonide-formoterol 160 mcg-4.5 mcg/ inh Inh Aer w/ adapter) Inhalation 2 times a day Contact prescribing physician if questions or concerns Unchanged dofetilide (dofetilide 250 mcg oral capsule) 1 Capsules By Mouth 2 times a day Contact prescribing physician if questions or concerns Unchanged metoprolol (metoprolol 50 mg ER Tab) 1 Tablets By Mouth Every day Contact prescribing physician if questions or concerns Unchanged rivaroxaban (Xarelto 20 mg oral tablet) 1 Tablets By Mouth Once a day (in the evening) Contact prescribing physician if questions or concerns Allergies No Known Medication Allergies Problems Ongoing - Any problem that you are currently receiving treatment for. Anticoagulated Asthma Asymptomatic microscopic hematuria Atrial fibrillation High blood cholesterol High blood pressure Kidney stones Prostate cancer screening Ureteral stone Patient Survey You may receive a survey via text or e-mail asking about your office visit. Please share your experience with us by completing your survey. We appreciate your feedback and thank you for choosing us for your care. Education Materials Ureteroscopy Ureteroscopy is a procedure to check for and treat problems inside part of the urinary tract. In this procedure, a long rigid or flexible tube with a lens and light at the end (ureteroscope) is used to look at the inside of the kidneys and the ureters. The ureters are the tubes that carry urine from the kidneys to the bladder. The ureteroscope is inserted into one or both of the ureters. You may need this procedure if you have frequent urinary tract infections (UTIs), blood in your urine, or a stone in one or both of your ureters. A ureteroscopy can be done: ??? To find the cause of urine blockage in a ureter and to evaluate other abnormalities inside the ureters or kidneys. ??? To remove stones. ??? To remove or treat growths of tissue (polyps), abnormal tissue, and some types of tumors. ??? To remove a tissue sample and check it for disease under a microscope (biopsy). Tell a health care provider about: ??? Any allergies you have. ??? All medicines you are taking, including vitamins, herbs, eye drops, creams, and wxnp-gmy-mxbonne medicines. ??? Any problems you or family members have had with anesthetic medicines. ??? Any bleeding problems you have. ??? Any surgeries you have had. ??? Any medical conditions you have. ??? Whether you are pregna (more content not included)... Normal [facility] Urology Office/Clinic Noteon 11-21-2024 Urology Office/Clinic Note Urology Office/Clinic Note Chief Complaint 5mm left ureteral calculus HPI Staff 73yr old male pt here with 5mm L ureteral stone Previous Dx: kidney stones, prostate cancer screening, left flank pain. CT done 10/12/24 IPSS score today is 1. Denies any urinary complaints at this time. State that he is having a little discomfort in the left flank region that comes and goes. States that the pain is very minimal. He has not noticed passing of any calculus. Pt is taking Tamsulosin 0.4mg qd. Tried BID but got extremely dizzy. History of Present Illness Tests reviewed: reviewed UA, CT scan I have reviewed the previous health record information and history for this patient from [facility]. I have reviewed and verified the staff HPI to be accurate for this encounter. Review of Systems PHQ Score Initial Depression Screen Score: 0 SCORE ROS - Provider Constitutional: denies weight loss, denies hot flashes. Eyes: denies eye problems. Gastrointestinal: denies nausea, denies vomiting. Cardiovascular: denies chest pain or angina. Integumentary: no dryness Musculoskeletal: denies musculoskeletal symptoms. ENMT: denies otolaryngeal symptoms. Respiratory: no shortness of breath. Heme/Lymph: denies easy bleeding tendency, denies easy bruising tendency. Psychiatric: no confusion, no anxiety. Genitourinary: See HPI. Physical Exam Vitals & Measurements T: 37 ???C(Temporal Artery) HR: 72(Peripheral) RR: 18 BP: 138/77 HT: 178 cm HT: 70 in WT: 197.534 lb WT: 89.6 kg BMI: 28.28 General Appearance: alert, no distress, well nourished, well developed male. Assessment/Plan 1. Ureteral stone (N20.1: Calculus of ureter) CT AP wo con 10/12/24 [facility] - 5 mm L ureteral calculus at pelvic brim causing no hydro. Took Flomax bid but experienced dizziness so now only taking qd. Has had minimal left flank pain. UA today negative for blood and infection. Discussed options for intervention including extracorporeal shockwave lithotripsy vs ureteroscopy with laser lithotripsy/stone basket extraction possible stent. Risks/benefits of each were discussed. . However pt states he is able to hold these x1 wk. Prefers to proceed with ESWL vs ureteroscopy. -Schedule KUB -Will schedule Left ESWL with possible ureteroscopic laser/stent placement. The procedure risks, benefits, details and treatment alternatives have been discussed with the patient. These include blood urine, infection, bleeding around the kidney, kidney bruising, inability to break up the stone, need for blood transfusion, stent pain, injury to the ureter, bladder irritation from the stent, flank pain, and need for additional procedures, among others. Full informed consent has been obtained. Will order General anesthesia. 2. Kidney stones (N20.0: Calculus of kidney) ESWL 01/16/22 - 9 mm L ureteral stone. KUB 02/10/22 - complete resolution of stone. KUB 02/10/22 - suspected L nephrolithiasis, largest measuring 5 mm. KUB 02/15/24 - L nephrolithiasis, grossly similar to prior. [1] CT AP wo con 10/12/24 [facility] - Punctate stones in kidneys. -Repeat metabolic workup after #1 resolved 3. 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 Elevated risk for periop complications. Follow-up With When Contact Information LASHAY GONZALEZ, Nick Greene, [facility] [address] , [place] [address] [phone] Additional Instructions: sched L ESWL Patient Education Ureteroscopy Laser Therapy for Kidney Stones I, Susanne Ko, personally scribed for Dr. Metz on 11/21/2024 13:44:25. . Documentation recorded by the scribe, Susanne Ko, accurately reflects the services(s) I performed and decisions made by me. Authenticated by Dr. Metz on 11/21/2024 13:46:45. Problem List/Past Medical History Ongoing Anticoagulated Asthma Asymptomatic microscopic hematuria Atrial fibrillation High blood cholesterol High blood pressure Kidney stones Prostate cancer screening Ureteral stone Historical No qualifying data Procedure/Surgical History Fluoroscopy guided ESWL (extracorporeal shockwave lithotripsy) of calculus of left kidney (01/16/2022), Amputation of toe, Cataract, Colonoscopy, ESWL - Extracorporeal shockwave lithotripsy for renal calculus. Medications albuterol CFC free 90 mcg/inh inhalation aerosol, 2 puff(s), Inhalation, q6hr, PRN amlodipine-valsartan 10 mg-160 mg oral tablet aspirin 81 mg oral capsule, 81 mg= 1 cap(s), Oral, WedSat atorvastatin 20 mg Tab, 20 mg= 1 tab(s), Oral, Bedtime budesonide-formoterol 160 mcg-4.5 mcg/inh Inh Aer w/adapter, Inhalation, BID dofetilide 250 mcg oral capsule, 250 mcg= 1 cap(s), Oral, BID Flomax 0.4 mg Cap, 1-2 cap(s), Oral, Daily metoprolol 50 mg ER Tab, 50 mg= 1 tab(s), Oral, Daily Xarelto 20 mg oral tablet, 20 mg= 1 tab(s), Oral, qPM Allergies No Known Medication Allergies Social History Alcohol - (more content not included)... Normal [facility] Comment on above: Result Comment: Elec tronically Signed By: Nick METZ MD\.br\Date and Time Signed: 11/21/24 13:46 EDT\.br\Electronically Co-Signed By: Susanne Ko\.br\Date and Time Co-Signed: 11/21/24 13:[address] abdomen pelvis wo con 0 10-12-2024 CT abdomen pelvis wo [facility] [place] [address] CT Scan Report Signed Patient: Santhosh Torres MR#: [id number] : 1950 Acct:[id number] Age/Sex: 73 / M ADM Date: 10/12/24 Loc: [facility] Room: Type: [facility] Attending Dr: Isaura Del Rosario PA-C Copies to: Isaura Del Rosario PA-C Ordering Provider: Isaura Del Rosario PA-C Date of Service: 10/12/24 CT/CT abdomen pelvis wo con: N20.0 CT ABDOMEN AND PELVIS WITHOUT INTRAVENOUS CONTRAST: CLINICAL HISTORY: Kidney stones abdominal pain and hematuria. COMPARISON: None TECHNIQUE: Spiral images were obtained through the abdomen and pelvis without intravenous contrast. This CT exam was performed using one or more following dose reduction techniques: Automated exposure control, adjustment of the mA and/or kV according to patient size, or use of iterative reconstruction technique. FINDINGS: Lung Bases: [Bibasilar scarring.] Organs:Suboptimal evaluation due to lack of IV contrast. Liver gallbladder spleen pancreas and adrenal glands appear unremarkable. Kidneys demonstrate punctate stones involving the kidneys. 5 mm left ureteral calculus at the pelvic brim causing no significant hydronephrosis or hydroureter. Moderate calcification of the aorta without aneurysm. GI: Stomach is grossly unremarkable. Small bowel appears nondilated. Colonic diverticulosis.[Appendix is normal. Pelvis:[Bilateral fat filled inguinal hernias. Urinary bladder and prostate gland appear unremarkable. Peritoneum/Retroperitoneum :No free air, free fluid or lymphadenopathy.[ Abd wall/Bones:Abdominal wall demonstrates no acute findings. Osseous structures demonstrate degenerative change.[ CT/CT abdomen pelvis wo con IMPRESSION: Punctate bilateral nephrolithiasis. 5 mm left ureteral calculus at the level of the pelvic brim causing no significant hydronephrosis or hydroureter. Colonic diverticulosis. Impression dictated by: Riccardo Giron Jr., D.O.10/12/2024 2:38 PM Dictation Location: [place] [address] Transcribed By: [facility] 10/12/24 1438 Dictated By: Riccardo Giron Jr, DO 10/12/24 1432 Signed By: 10/12/24 1438 Normal [facility] Urology Office/Clinic Noteon 10-04-2024 Urology Office/Clinic Note Urology Office/Clinic Note Chief Complaint left flank pain HPI Staff 73yr old male pt here for c/o possible stone. Pt has pressure in left flank area. Previous Dx: kidney stones, prostate cancer screening Dysuria: denies Incomplete bladder emptying: denies Hematuria: saw blood 1x about 1 week ago, along with the left flank pain Frequency: denies Urgency: denies Nocturia: denies Stream: good stream Leaking: denies Post void dripping: denies Wearing pads/ Depends: denies Urge incontinence: denies Stress incontinence: denies Incontinence without Sensory Awareness: denies Abdominal pain: denies Flank pain: left flank pain, started about 2 months ago, not constant pain but he has a history of kidney stones so he does not want to wait to get it checked out Sexual complaints: Review of Systems PHQ Score Initial Depression Screen Score: 0 SCORE no fever, chills, malaise, myalgia. no rash/lesions. no chest pain, palpitations, or SOB. no nausea, vomiting. Physical Exam Vitals & Measurements T: 37 ???C(Oral) HR: 68(Peripheral) RR: 18 BP: 153/78 HT: 70 in HT: 178 cm WT: 88.4 kg WT: 194.888 lb BMI: 27.9 General: nontoxic, NAD Mouth: moist mucosa Lungs: normal respiratory effort Cardio: regular rate, good distal perfusion Abdomen: nondistended, no suprapubic distention or tenderness, +L CVA tenderness Neurologic: Grossly normal Skin: No rashes or suspicious lesions Assessment/Plan 1. Left flank pain (R10.9: Unspecified abdominal pain) C/o 1-2 mos intermittent L flank pain, seems to be worsening in frequency and severity. Had gross hematuria last week. Thinks he's passing a stone, says it feels similar. UA neg for infection, does show blood. Will check CT scan, prefers [facility]. Offered to start Flomax/MET. Pt would like to wait for CT results. Proceed to the ER in the meantime if: - urine becomes dark red wine/Merlot colored and difficult to see through - pt becomes dizzy/lightheaded - pt develops fever, profuse vomiting, severe pain - pt unable to void despite strong urge to void Ordered: CT Abdomen/Pelvis w/o Contrast E&M of Est. Patient Moderate 30-39 Min 99451 2. Kidney stones (N20.0: Calculus of kidney) ESWL 01/16/22 - 9 mm L ureteral stone. KUB 02/10/22 - complete resolution of stone. KUB 02/10/22 - suspected L nephrolithiasis, largest measuring 5 mm. KUB 02/14/ - L nephrolithiasis, grossly similar to prior. Ordered: Body Mass Index (BMI) documented 3008F CT Abdomen/Pelvis w/o Contrast Current tobacco non-user 1036F Depression Screening Negative 3352F E&M of Est. Patient Moderate 30-39 Min 38893 Influenza immunization status assessed 1030F Medication list documented in medical record 1159F Most recent diastolic blood pressure <80 mm Hg 3078F Most recent systolic blood pressure >= 140 mm Hg 3077F Patient screen for fall risk: no falls in last year or 1 fall with no injury in last year 1101F Review of all meds by a prescribing practitioner or clinical pharmacist documented in EHR 1160F Urnls Dip Stick Auto w/o Microscopy POC 87982 Follow-up With When Contact Information Keep previously scheduled follow-up appointment. Additional Instructions: Patient Education Kidney Stones, Leie-vc-Uegg Problem List/Past Medical History Ongoing Anticoagulated Asthma Asymptomatic microscopic hematuria Atrial fibrillation High blood cholesterol High blood pressure Kidney stones Prostate cancer screening Historical No qualifying data Procedure/Surgical History Fluoroscopy guided ESWL (extracorporeal shockwave lithotripsy) of calculus of left kidney (01/16/2022), Amputation of toe, Cataract, Colonoscopy, ESWL - Extracorporeal shockwave lithotripsy for renal calculus. Medications albuterol CFC free 90 mcg/inh inhalation aerosol, 2 puff(s), Inhalation, q6hr, PRN amlodipine-valsartan 10 mg-160 mg oral tablet aspirin 81 mg oral capsule, 81 mg= 1 cap(s), Oral, WedSat atorvastatin 20 mg Tab, 20 mg= 1 tab(s), Oral, Bedtime budesonide-formoterol 160 mcg-4.5 mcg/inh Inh Aer w/adapter, Inhalation, BID dofetilide 250 mcg oral capsule, 250 mcg= 1 cap(s), Oral, BID metoprolol 50 mg ER Tab, 50 mg= 1 tab(s), Oral, Daily Xarelto 20 mg oral tablet, 20 mg= 1 tab(s), Oral, qPM Allergies No Known Medication Allergies Social History Alcohol - Low Risk, 01/08/2022 Current. 1-2 times per year., 10/04/2024 Substance Abuse - Denies Substance Abuse, 01/08/2022 Never., 10/04/2024 Tobacco - Denies Tobacco Use, 01/08/2022 Former smoker, quit more than 30 days ago, quit 40 years ago Tobacco Use:. Never Smokeless Tobacco Use:., 10/04/2024 Family History High blood pressure: Father. Primary malignant neoplasm of colon: Brother. Immunizations Vaccine Date Status Comments influenza virus vaccine, inactivated - Not Given Postpone due to refusal SARS-CoV-2 (COVID-19) Ad26 vaccine 01/08/2021 Recorded SARS-CoV-2 (COVID-19) mRNA-1273 vaccine 0 (more content not included)... Normal [facility] Comment on above: Result Comment: Elec tronically Signed By: ISAURA DEL ROSARIO PA-C\Date and Time Signed: 10/04/24 13:05 EST ECG 12 Leadon 07-12-2024 ECG revealed normal sinus rhythm with sinus bradycardia and right bundle branch block, abnormal ECG [facility] Work Phone: [place] 02-24-2024 Screens [id number] Normal [facility] Screens [id number] Normal [facility] Patient Educationon 02-23-20 24 Patient Education Nephrology Dietary Guidelines to Help Prevent Kidney Stones Kidney stones are deposits of minerals and salts that form inside your kidneys. Your risk of developing kidney stones may be greater depending on your diet, your lifestyle, the medicines you take, and whether you have certain medical conditions. Most people can lower their risks of developing kidney stones by following these dietary guidelines. Your dietitian may give you more specific instructions depending on your overall health and the type of kidney stones you tend to develop. What are tips for following this plan? Reading food labels ? Choose foods with no salt added or low-salt labels. Limit your salt (sodium) intake to less than 1,500 mg a day. ? Choose foods with calcium for each meal and snack. Try to eat about 300 mg of calcium at each meal. Foods that contain 200?500 mg of calcium a serving include: ? 8 oz (237 mL) of milk, ufyafeu-opnzqfecsqhp-zbnjz milk, and calcium-fortifiedfruit juice. Calcium-fortified means that calcium has been added to these drinks. ? 8 oz (237 mL) of kefir, yogurt, and soy yogurt. ? 4 oz (114 g) of tofu. ? 1 oz (28 g) of cheese. ? 1 cup (150 g) of dried figs. ? 1 cup (91 g) of cooked broccoli. ? One 3 oz (85 g) can of sardines or mackerel. Most people need 1,000?1,500 mg of calcium a day. Talk to your dietitian about how much calcium is recommended for you. Shopping ? Buy plenty of fresh fruits and vegetables. Most people do not need to avoid fruits and vegetables, even if these foods contain nutrients that may contribute to kidney stones. ? When shopping for convenience foods, choose: ? Whole pieces of fruit. ? Pre-made salads with dressing on the side. ? Low-fat fruit and yogurt smoothies. ? Avoid buying frozen meals or prepared deli foods. These can be high in sodium. ? Look for foods with live cultures, such as yogurt and kefir. ? Choose high-fiber grains, such as whole-wheat breads, oat bran, and wheat cereals. Cooking ? Do not add salt to food when cooking. Place a salt shaker on the table and allow each person to add their own salt to taste. ? Use vegetable protein, such as beans, textured vegetable protein (TVP), or tofu, instead of meat in pasta, casseroles, and soups. Meal planning ? Eat less salt, if told by your dietitian. To do this: ? Avoid eating processed or pre-made food. ? Avoid eating fast food. ? Eat less animal protein, including cheese, meat, poultry, or fish, if told by your dietitian. To do this: ? Limit the number of times you have meat, poultry, fish, or cheese each week. Eat a diet free of meat at least 2 days a week. ? Eat only one serving each day of meat, poultry, fish, or seafood. ? When you prepare animal proteins, cut pieces into small portion sizes. For most meat and fish, one serving is about the size of the palm of your hand. ? Eat at least five servings of fresh fruits and vegetables each day. To do this: ? Keep fruits and vegetables on hand for snacks. ? Eat one piece of fruit or a handful of berries with breakfast. ? Have a salad and fruit at lunch. ? Have two kinds of vegetables at dinner. ? You may be told to limit foods that are high in a substance called oxalate. These include: ? Spinach (cooked), rhubarb, beets, sweet potatoes, and Somali chard. ? Peanuts. ? Potato chips, lithuanian fries, and baked potatoes with skin on. ? Nuts and nut products. ? Chocolate. ? If you regularly take a diuretic medicine, make sure to eat at least 1 or 2 servings of fruits or vegetables that are high in potassium each day. These include: ? Avocado. ? Banana. ? Castro, prune, carrot, or tomato juice. ? Baked potato. ? Cabbage. ? Beans and split peas. Lifestyle ? Drink enough fluid to keep your urine pale yellow. This is the most important thing you can do. Spread your fluid intake throughout the day. ? If you drink alcohol: ? Limit how much you have to: ? 0?1 drink a day for women who are not . ? 0?2 drinks a day for men. ? Know how much alcohol is in your drink. In the [place] one drink equals one 12 oz bottle of beer (355 mL), one 5 oz glass of wine (148 mL), or one 1? oz glass of hard liquor (44 mL). ? Lose weight if told by your health care provider. Work with your dietitian to find an eating plan and weight loss strategies that work best for you. General information ? Talk to your health care provider and dietitian about taking daily supplements. Depending on your health and the cause of your kidney stones, you may be told: ? Do not take high-dose supplements of vitamin C (1,000 mg a day or more). ? To take a calcium supplement. ? To take a daily probiotic supplement. ? To take other supplements such as magnesium, fish oil, or vitamin B6. ? Take dbvh-mnm-qlydjce and prescription medicines only as told by your health care provider. These include supplements. What foods sh (more content not included)... Normal [facility] Urology Office/Clinic Noteon 02-23-2024 Urology Office/Clinic Note Chief Complaint 1yr PSA & KUB HPI Staff 1yr PSA & KUB DX: Kidney Stone & Microscopic Hematuria *No Urology Meds KUB 02/15/24 t Kidney Stone. Grossly Similar to prior study. PSA- 02/15/24- 0.840 Denies flank pain. Denies urinary sx. No concerns at this time. History of Present Illness staff HPI reviewed and agree. Tests Reviewed: Reviewed UA, PSA, KUB Review of Systems PHQ Score Initial Depression Screen Score: 0 SCORE no fever, chills, malaise, myalgia. no rash/lesions. no chest pain, palpitations, or SOB. no abdominal pain, nausea, vomiting. no unilateral calf swelling, redness, pain Physical Exam Vitals & Measurements HR: 80(Peripheral) RR: 16 BP: 137/84 HT: 70 in HT: 178 cm WT: 89 kg WT: 195.8 lb BMI: 28.09 General: nontoxic, NAD Mouth: moist mucosa Lungs: normal respiratory effort Cardio: regular rate, good distal perfusion Abdomen: nondistended, no suprapubic distention or tenderness, no CVA tenderness Neurologic: Grossly normal Skin: No rashes or suspicious lesions Assessment/Plan 1. Kidney stones (N20.0: Calculus of kidney) ESWL 01/16/22 - 9 mm L ureteral stone. KUB 02/10/22 - complete resolution of stone. KUB 02/10/22 - suspected L nephrolithiasis, largest measuring 5 mm. KUB 02/15/24 - L nephrolithiasis, grossly similar to prior. Reviewed KUB, stones have remained stable for years. Denies gross hematuria, flank pain, obvious stone passage, UTIs. Discussed stone prevention diet. Discussed continued vs dc monitoring, pt prefers the latter. Ordered: Body Mass Index (BMI) documented 3008F Complex E&M Add on G2211 Current tobacco non-user 1036F Depression Screening Negative 3352F Discharge medications reconciled with current medications in outpatient record 1111F E&M of Est. Patient Moderate 30-39 Min 80466 Medication list documented in medical record 1159F Most recent diastolic blood pressure 80-89 mm Hg 3079F Patient screen for fall risk: no falls in last year or 1 fall with no injury in last year 1101F Review of all meds by a prescribing practitioner or clinical pharmacist documented in EHR 1160F Systolic BP 130-139 mm Hg (Most Recent) 3075F Urnls Dip Stick Auto w/o Microscopy POC 02038 2. Prostate cancer screening (Z12.5: Encounter for screening for malignant neoplasm of prostate) PSA 12/2017 - 0.70 denies significant LUTs 02/12/22 - 0.86 02/16/23 - 0.75 02/15/24 - 0.84 UA shows trace leuks. PSA remains low and stable. IPSS low. I discussed stopping the PSA checks, due to the PSA stability, and his advancing age. He is aware that his chances of developing and having problems from prostate cancer at this point are quite low. He agrees to stop the PSA checks. -D/c PSA monitoring. Ordered: Complex E&M Add on G2211 E&M of Est. Patient Moderate 30-39 Min 15991 Offered continued scheduled follow up with our clinic vs following up PRN. Pt prefers the latter. Follow-up With When Contact Information MIGUEL ÁNGEL ZULUAGA, ISAURA Swanson, URL [address] [facility] [address] Additional Instructions: PRN Patient Education Dietary Guidelines to Help Prevent Kidney Stones Documentation recorded by the scribmorena Pinedo accurately reflects the services(s) I performed and decisions made by me. Authenticated by Isaura Del Rosario PA-C on 02/23/2024 13:31:54. I, Nisha Pinedo, personally scribed for TEGAN Parks on 02/23/2024 13:28:15. . Problem List/Past Medical History Ongoing Anticoagulated Asthma Asymptomatic microscopic hematuria Atrial fibrillation High blood cholesterol High blood pressure Kidney stones Prostate cancer screening Historical No qualifying data Procedure/Surgical History Fluoroscopy guided ESWL (extracorporeal shockwave lithotripsy) of calculus of left kidney (01/16/2022), Amputation of toe, Cataract, Colonoscopy, ESWL - Extracorporeal shockwave lithotripsy for renal calculus. Medications albuterol CFC free 90 mcg/inh inhalation aerosol, 2 puff(s), Inhalation, q6hr, PRN amlodipine-valsartan 10 mg-160 mg oral tablet aspirin 81 mg oral capsule, 81 mg= 1 cap(s), Oral, WedSat atorvastatin 20 mg Tab, 20 mg= 1 tab(s), Oral, Bedtime budesonide-formoterol 160 mcg-4.5 mcg/inh Inh Aer w/adapter, Inhalation, BID dofetilide 250 mcg oral capsule, 250 mcg= 1 cap(s), Oral, BID metoprolol 50 mg ER Tab, 50 mg= 1 tab(s), Oral, Daily Xarelto 20 mg oral tablet, 20 mg= 1 tab(s), Oral, qPM Allergies No Known Medication Allergies Social History Alcohol - Low Risk, 01/08/2022 Current, 1-2 times per year, 01/08/2022 Substance Abuse - Denies Substance Abuse, 01/08/2022 Tobacco - Denies Tobacco Use, 01/08/2022 Former smoker, quit more than 30 days ago, quit 40 years ago Tobacco Use:. Never Smokeless Tobacco Use:. Cigarettes, Household tobacco concerns: No. Yes, 02/23/2024 Family History High blood pressure: Father. Primary malignant neop (more content not included)... Normal [facility] Comment on above: Result Comment: Elec tronically Signed By: ISAURA DEL ROSARIO PA-C\.br\Date and Time Signed: 02/23/24 13:32 EDT\.br\Electronically Co-Signed By: Nisha Pinedo\.br\Date and Time Co-Signed: 02/23/24 13:28 EDT Lab Reportson 02-22-2024 Lab Reports [id number] Normal [facility] RAD - MISCon 02-16-2024 RAD - MISC [id number]#[id number] Normal [facility] PSA Screen (Yearly Only)on 0 02-15-2024 PSA Screen (Yearly Only) 0.840 ng/mL Normal 0.000-4.00 0 [facility] Comment on above: Order Comment: Is tegan tient <50 yrs? Medicare does not pay <50.: N Is Medicare the insurance?: Y Result Comment: Kj lu tumor marker results determined by assays using different manufacturers or methods may not be comparable. [facility] geographic information systems director and method: [employer] DXI, CHEMILUMINESCENT IMMUNOASSAY. PERFORMED BY: [place] [address] PATHOLOGIST HONING MACHINE OPERATOR SEMIAUTOMATIC REBEKA JEROME M.D. Performed By: #### P SAS #### [address] Prostate specific Ag [Mass/v olume] in Serum or PlasmaOrdered By: Isaura Del Rosario on 02-15-2024 Prostate specific Ag [Mass/Vol] 0.840 ng/mL 0.000-4.00 0 [facility] Comment on above: Serial tumor marker results determined by assays using different manufacturers or methods may not be comparable.[facility] geographic information systems director and method:[employer] DXI, CHEMILUMINESCENT IMMUNOASSAY. XR abdomen 1Von 02-15-2024 XR abdomen 1V [facility] [place] [address] [place] [id number] XRay Report Signed Patient: Santhosh Torres MR#: [id number] : 1950 Acct:[id number] Age/Sex: 73 / M ADM Date: 02/15/24 Loc: [facility] Room: Type: [facility] Attending Dr: Isaura Del Rosario PA-C Copies to: Isaura Del Rosario PA-C Ordering Provider: Isaura Del Rosario PA-C Date of Service: 02/15/24 XR/XR abdomen 1V: KIDNEY STONE KUB: CLINICAL INFORMATION: History of kidney stones. Left-sided flank pain. COMPARISON: KUB 02/16/2023 FINDINGS: Phlebolith is seen within the pelvis. 2 stones are seen within the left kidney, largest measuring 5 mm. This is similar to the prior study. No suspicious right renal calculus is seen. No bowel obstruction. No free air. Osseous structures demonstrate degenerative change. XR/XR abdomen 1V IMPRESSION: LEFT NEPHROLITHIASIS, GROSSLY SIMILAR TO THE PRIOR STUDY. Impression dictated by: Riccardo Giron Jr., DRuchiORuchi02/15/2024 4:21 PM Dictation Location: [place] [address] Transcribed By: [facility] 02/15/24 1621 Dictated By: Riccardo Giron Jr, DO 02/15/24 1619 Signed By: 02/15/24 1621 Normal [facility] ECG 12 Leadon 11-26-2023 ECG revealed sinus bradycardia, left axis deviation and incomplete right bundle branch block., Old inferior myocardial infarction cannot be excluded [facility] Work Phone: BASIC METABOLIC PANELon 05-31 BUN/CREATININE RATIO SEE NOTE: Normal 6-22 Ques t [facility] Comment on above: Result Comment: Not Reported: BUN and Creatinine are within reference range. Performed By: #### 7 600, 45484 #### [facility] [address], [address] [place] [address] Filtration Plant Mechanic: Canelo Joshua MD Calcium [Mass/Vol] 9.0 mg/dL Normal 8.6-10.3 [facility] Comment on above: Performed By: #### 7 600, 99852 #### [facility] [address], [address] [place] [address] Filtration Plant Mechanic: Canelo Joshua MD Chloride [Moles/Vol] 107 mmol/L Normal 98-110 Ques t [facility] Comment on above: Performed By: #### 7 600, 92673 #### [facility] [place] [address] Filtration Plant Mechanic: Canelo Joshua MD CO2 [Moles/Vol] 26 mmol/L Normal 20-32 [facility] Comment on above: Performed By: #### 7 600, 45344 #### [facility] [address], [address] [place] [address] Filtration Plant Mechanic: Canelo Joshua MD Creatinine [Mass/Vol] 0.96 mg/dL Normal 0.70-1.[address] [facility] [address] [facility] Comment on above: Performed By: #### 7 600, 38337 #### [facility] [place] [address] Filtration Plant Mechanic: Canelo Joshua MD GFR/1.73 sq M.predicted among non-blacks MDRD (S/P/Bld) [Vol rate/Area] 83 mL/min/{1.73_m2} Normal > OR = 60 [facility] Comment on above: Performed By: #### 7 600, 19736 #### [facility] of [place] [address] Filtration Plant Mechanic: Canelo Joshua MD Glucose [Mass/Vol] 100 mg/dL High 65-99 [facility] Comment on above: Result Comment: Fasting reference interval For someone without known diabetes, a glucose value between 100 and 125 mg/dL is consistent with prediabetes and should be confirmed with a follow-up test. Performed By: #### 7 600, 05922 #### [facility] of [address], [address] [place] [address] Filtration Plant Mechanic: Canelo Joshua MD Potassium [Moles/Vol] 4.0 mmol/L Normal 3.5-5.[address] [facility] Comment on above: Performed By: #### 7 600, 14693 #### [facility] [address], [address] [place] [address] Filtration Plant Mechanic: Canelo Joshua MD Sodium [Moles/Vol] 142 mmol/L Normal 135-146 [facility] Comment on above: Performed By: #### 7 600, 85686 #### [facility] of [address], [address] [place] [address] Filtration Plant Mechanic: Canelo Joshua MD Urea nitrogen [Mass/Vol] 11 mg/dL Normal 7-25 [facility] Comment on above: Performed By: #### 7 600, 09992 #### [facility] [address], [address] [place] [address] Filtration Plant Mechanic: Canelo Joshua MD LIPID PANEL, [place] [address] Cholesterol [Mass/Vol] 121 mg/dL Normal <200 [facility] Comment on above: Performed By: #### 7 600, 40976 #### [facility] [address], [address] [place] [address] Filtration Plant Mechanic: Canelo Joshua MD Cholesterol in HDL [Mass/Vol] 37 mg/dL Low > OR = 40 [facility] Comment on above: Performed By: #### 7 600, 48333 #### [facility] of [address], [address] [place] [address] Filtration Plant Mechanic: Canelo Joshua MD Cholesterol in LDL [Mass/Vol] 61 mg/dL Normal [facility] Comment on above: Result Comment: Refe rence range: <100 Desirable range <100 mg/dL for primary prevention; <70 mg/dL for patients with CHD or diabetic patients with > or = 2 CHD risk factors. LDL-C is now calculated using the Kevin-Avelar calculation, which is a validated novel method providing better accuracy than the Friedewald equation in the estimation of LDL-C. Kevin SS et al. MARCO. 2013;310(19): 6751-9646 (http://education.[employer]/faq/KVC170) Performed By: #### 7 600, 34183 #### [facility] [address], [address] [place] [address] Filtration Plant Mechanic: Canelo Joshua MD Cholesterol.total/Chol esterol in HDL [Mass ratio] 3.3 {ratio} Normal <5.0 [facility] Comment on above: Performed By: #### 7 600, 68104 #### [facility] [address], [address] [place] [address] Filtration Plant Mechanic: Canelo Joshua MD NON HDL CHOLESTEROL 84 mg/dL (calc) Normal <130 [facility] Comment on above: Result Comment: For patients with diabetes plus 1 major ASCVD risk factor, treating to a non-HDL-C goal of <100 mg/dL (LDL-C of <70 mg/dL) is considered a therapeutic option. Performed By: #### 7 600, 32526 #### [facility] [address], [address] [place] [address] Filtration Plant Mechanic: Canelo Joshua MD Triglyceride [Mass/Vol] 143 mg/dL Normal <150 [facility] Comment on above: Performed By: #### 7 600, 18984 #### [facility] [address], [address] [place] [address] Filtration Plant Mechanic: Canelo Joshua MD Office Visit (Cardiology)on 05-21-2023 Follow-up visit Diagnoses/Problems Assessed Persistent atrial fibrillation (427.31) (I48.19) Essential hypertension (401.9) (I10) Mixed hyperlipidemia (272.2) (E78.2) High risk medication use (V58.69) (Z79.899) Asthma (493.90) (J45.909) Right bundle branch block (RBBB) (426.4) (I45.10) Overweight with body mass index (BMI) of 27 to 27.9 in adult (278.02,V85.23) (E66.3,Z68.27) High coronary artery calcium score (414.00) (R93.1) Orders Essential hypertension Start: amLODIPine Besylate-Valsartan 10-160 MG Oral Tablet; TAKE 1 TABLET DAILY Essential hypertension, Mixed hyperlipidemia Basic Metabolic Panel; Status:Active; Requested for:47Swh2384; Lipid Panel; Status:Active; Requested for:[id number]; Overweight with body mass index (BMI) of 27 to 27.9 in adult Healthy Weight Tips; Status:Complete; Done: 99Vyu1347 Some eating tips that can help you lose weight.; Status:Complete; Done: 45Ckg6131 Persistent atrial fibrillation IO EKG Electrocardiogram- 12 Lead; Status:Complete; Done: 53Iza0365 Patient Instructions Please bring all medicines, vitamins, and herbal supplements with you when you come to the office. Prescriptions will not be filled unless you are compliant with your follow up appointments or have a follow up appointment scheduled as per instruction of your physician. Refills should be requested at the time of your visit. BP check in 4 weeks Follow up in 6 months Chief Complaint LEXI TORRES is being seen for a 6 month follow-up of. Patient is in the office for follow-up for the problems noted below. Since he was last seen in the office he was in the hospital for asthma requiring therapy and follow-up with pulmonary medicine. No cardiac events. He is in sinus rhythm on the dofetilide and is chronically anticoagulated. EKG reveals normal sinus rhythm with normal intervals. His pressure is elevated today. His weight remains above target. He reports no breakthrough atrial fibrillation and no complications with medications. He is hypertensive on current medical therapy and adjustments were made as noted below. Assessment/recommendations : 1?persistent atrial fibrillation status post cardioversion October 2019, currently in sinus rhythm on dofetilide and long-term anticoagulation with Xarelto with no breakthrough events. Present medical therapy will left unchanged 2?hypertension currently not under control on beta theodora and amlodipine, will add valsartan and follow BP readings in few weeks along with basic metabolic profile. 3?overweight, encouraged patience diet control 4?reactive airway disease on Advair and Ventolin which will continue, he follows with pulmonary medicine 5?high-risk medication with antiarrhythmic and anticoagulants, 6?elevated coronary calcium score over 1000, stress test 2020 was normal. Presently on aspirin and statin. LDL on target 7?hyperlipidemia on statin therapy. Lipid profile is scheduled in few weeks Patient will follow up with me in the office in 6 months Surgical History Problems History of Cataract surgery History of Complete colonoscopy History of Lithotripsy History of Toe amputation Current Meds Medication NameInstruction amLODIPine Besylate 10 MG Oral TabletTAKE 1 TABLET BY MOUTH ONCE DAILY Aspirin EC 81 MG TBECTAKE 1 TABLET Weekly Atorvastatin Calcium 20 MG Oral Tablettake 1 tablet by mouth daily at bedtime Budesonide-Formoterol Fumarate 160-4.5 MCG/ACT Inhalation AerosolUSE DIRECTED. Dofetilide 250 MCG Oral CapsuleTAKE 1 CAPSULE TWICE DAILY. Metoprolol Succinate ER 50 MG Oral Tablet Extended Release 24 HourTAKE 1 TABLET BY MOUTH DAILY Ventolin HFA 108 (90 Base) MCG/ACT Inhalation Aerosol SolutionINHALE 1 PUFF EVERY 4 HOURS NEEDED. Xarelto 20 MG Oral TabletTAKE 1 TABLET BY MOUTH EVERY DAY Allergies Medication No Known Drug Allergies Recorded By: Zakia Karimi; 09/11/2021 4:54:44 PM Social History Problems Alcohol use (V49.89) (Z78.9) 1x yearly Caffeine use (V49.89) (Z78.9) 1cup of coffee daily Former smoker (V15.82) (Z87.891) No illicit drug use Review of Systems Constitutional: not feeling tired. Cardiovascular: no intermittent leg claudication and as noted in HPI. Respiratory: no cough and no shortness of breath. Gastrointestinal: no change in bowel habits and no blood in stools. Integumentary: no skin rashes. Neurological: no seizures and no frequent falls. All other systems have been reviewed and are negative for complaint. Vitals Vital Signs Recorded: 62Siv9520 11:40AMRecorded: 80Iqi2833 11:16AM Pwagzehj677, LUE, Bhkqttg923, LUE, Sitting Pojiywusc00, LUE, Vjyxhgp50, LUE, Sitting Heart Rate56, Apical Height5 ft 11 in Nayvpl918 lb BMI Lxkrlorvze41.62 kg/m2 BSA Calculated2.1 Tobacco Useb) No Falls Screening (Age 18+)a) No falls within the last year EKG COMPLETED IN OFFICE Physical Exam Constitutional: alert and in no acute distress. Neck: neck is supple, symmetric, trachea midline, n (more content not included)... Normal [employer] Tobacco Screening.on 023 Fall risk assessment a) No falls within the last year -[facility] [place] [address] DO Work Phone: Tobacco use status [facility] b) No -[facility] [place] [address] DO Work Phone: Basophils Auto (Bld) [#/Vol] Ordered By: Filipe Reynolds on 01-07-2023 Basophils (Bld) [#/Vol] 0.0 10*3/uL 0.0-0.2 [facility] Basophils/100 WBC Auto (Bld) Ordered By: Filipe Reynolds on 01-07-2023 Basophils/100 WBC (Bld) 0.1 % . [facility] Calcium [Mass/volume] in Ser um or PlasmaOrdered By: Filipe Reynolds on 01-07-2023 Calcium [Mass/Vol] 8.7 mg/dL 8.6-10.3 [facility] Carbon dioxide, total [Moles /volume] in Serum or PlasmaOrdered By: Filipe Reynolds on 01-07-2023 CO2 [Moles/Vol] 24.6 mmol/L 21.0-31.0 [facility] Chloride [Moles/volume] in S jayson or PlasmaOrdered By: Filipe Reynolds on 01-07-2023 Chloride [Moles/Vol] 104 mmol/L 98-107 [facility] Creatinine [Mass/volume] in Serum or PlasmaOrdered By: Filipe Reynolds on 01-07-2023 Creatinine [Mass/Vol] 1.03 mg/dL 0.70-1.30 [facility] Eosinophils Auto (Bld) [#/Vo l]Ordered By: Filipe Reynolds on 01-07-2023 Eosinophils (Bld) [#/Vol] 0.0 10*3/uL 0.0-0.45 [facility] Eosinophils/100 WBC Auto (Bl d)Ordered By: Filipe Reynolds on 01-07-2023 Eosinophils/100 WBC (Bld) 0.0 % . [facility] Erythrocyte distribution wid th Auto (RBC) [Ratio]Ordered By: Filipe Reynolds on 01-07-2023 Erythrocyte distribution width (RBC) [Ratio] 13.9 % 12.0-14.8 [facility] Glucose [Mass/volume] in Ser um or PlasmaOrdered By: Filipe Reynolds on 01-07-2023 Glucose [Mass/Vol] 149 mg/dL 70-100 [facility] Comment on above: ADA recommended refe rence rangeRandom Glucose Reference Range is dependent on time and content of last meal. Glucose of more than 200 mg/dL in a nonstressed, ambulatory subject supports the diagnosis of Diabetes Mellitus. Hematocrit Auto (Bld) [Volum e fraction]Ordered By: Filipe Reynolds on 01-07-2023 Hematocrit (Bld) [Volume fraction] 43.7 % 38.8-50.0 [facility] Hemoglobin [Mass/volume] in BloodOrdered By: Filipe Reynolds on 01-07-2023 Hemoglobin (Bld) [Mass/Vol] 14.6 g/dL 13.0-17.0 [facility] Leukocytes [#/volume] correc jillian for nucleated erythrocytes in Blood by Automated counOrdered By: Filipe Reynolds on 01-07-2023 WBC corrected for nucl RBC Auto (Bld) [#/Vol] 18.6 10*3/uL 4.1-10.5 [facility] Lymphocytes Auto (Bld) [#/Vo l]Ordered By: Filipe Reynolds on 01-07-2023 Lymphocytes (Bld) [#/Vol] 1.1 10*3/uL 1.00-4.8 [facility] Lymphocytes/100 WBC Auto (Bl d)Ordered By: Filipe Reynolds on 01-07-2023 Lymphocytes/100 WBC (Bld) 5.8 % . [facility] MCH Auto (RBC) [Entitic mass ]Ordered By: Filipe Reynolds on 01-07-2023 MCH (RBC) [Entitic mass] 29.7 pg 27.5-35.2 [facility] MCHC Auto (RBC) [Mass/Vol]Or dered By: Filipe Reynolds on 01-07-2023 MCHC (RBC) [Mass/Vol] 33.4 g/dL 32.5-35.6 [facility] MCV Auto (RBC) [Entitic vol] Ordered By: Filipe Reynolds on 01-07-2023 MCV (RBC) [Entitic vol] 88.9 fL 83.5-101 [facility] Monocytes Auto (Bld) [#/Vol] Ordered By: Filipe Reynolds on 01-07-2023 Monocytes (Bld) [#/Vol] 0.5 10*3/uL 0.0-0.8 [facility] Monocytes/100 WBC Auto (Bld) Ordered By: Filipe Reynolds on 01-07-2023 Monocytes/100 WBC (Bld) 2.6 % . [facility] Neutrophils Auto (Bld) [#/Vo l]Ordered By: Filipe Reynolds on 01-07-2023 Neutrophils (Bld) [#/Vol] 17.0 10*3/uL 1.8-7.7 [facility] Neutrophils/100 WBC Auto (Bl d)Ordered By: Filipe Reynolds on 01-07-2023 Neutrophils/100 WBC (Bld) 91.5 % . [facility] No Panel InformationOrdered By: Filipe Reynolds on 01-07-2023 Estimated GFR (CKD-EPI) > 60.0 mL/Min [facility] Creatinine Clearance (Chem 67.01 [facility] Nucleated erythrocytes [Pres ence] in Blood by Automated countOrdered By: Filipe Reynolds on 01-07-2023 Nucleated RBC Auto Ql (Bld) 0.1 /100{WBC} 0-0.5 [facility] Platelet mean volume Auto (B ld) [Entitic vol]Ordered By: Filipe Reynolds on 01-07-2023 Platelet mean volume (Bld) [Entitic vol] 8.6 fL 6.6-10.1 [facility] Platelets Auto (Bld) [#/Vol] Ordered By: Filipe Reynolds on 01-07-2023 Platelets (Bld) [#/Vol] 210 10*3/uL 150-450 [facility] Potassium [Moles/volume] in Serum or PlasmaOrdered By: Asif Bautista on 01-07-2023 Potassium [Moles/Vol] 4.1 mmol/L 3.5-5.1 [facility] RBC Auto (Bld) [#/Vol]Ordere d By: Filipe Reynolds on 01-07-2023 RBC (Bld) [#/Vol] 4.92 10*6/uL 3.90-5.60 [facility] Serum or plasma anion gap de terminationOrdered By: Filipe Reynolds on 01-07-2023 Anion gap [Moles/Vol] TNP [facility] Comment on above: Test not performed Sodium [Moles/volume] in Ser um or PlasmaOrdered By: Filipe Reynolds on 01-07-2023 Sodium [Moles/Vol] 138 mmol/L 136-145 [facility] Comment on above: Hemolysis is present at a level that could interfere with the result. Urea nitrogen [Mass/volume] in Serum or PlasmaOrdered By: Filipe Reynolds on 01-07-2023 Urea nitrogen [Mass/Vol] 34 mg/dL 7-25 [facility] WBC Auto (Bld) [#/Vol]Ordere d By: Filipe Reynolds on 01-07-2023 WBC (Bld) [#/Vol] 18.6 10*3/uL 4.1-10.5 [facility] Magnesium [Mass/volume] in S jayson or PlasmaOrdered By: Filipe Reynolds on 01-06-2023 Magnesium [Mass/Vol] 2.4 mg/dL 1.9-2.7 [facility] Activated partial thrombopla stin time (aPTT) in platelet poor plasma by coagulation aOrdered By: Herminio Rogel on 01-05-2023 aPTT Coag (PPP) [Time] 35.8 s 25.1-36.5 [facility] Aerobic cultureOrdered By: Angelic Reynolds on 01-05-2023 Bacteria identified Aer cx Nom (Unsp spec) 2 Days [facility] Alanine aminotransferase [En zymatic activity/volume] in Serum or PlasmaOrdered By: Herminio Rogel on 01-05-2023 ALT [Catalytic activity/Vol] 13 U/L 7-52 [facility] Albumin [Mass/volume] in Ser um or Plasma by Bromocresol green (BCG) dye binding methoOrdered By: Herminio Rogel on 01-05-2023 Albumin BCG dye [Mass/Vol] 4.6 g/dL 3.5-5.7 [facility] Alkaline phosphatase [Enzyma tic activity/volume] in Serum or PlasmaOrdered By: Herminio Rogel on 01-05-2023 ALP [Catalytic activity/Vol] 124 U/L 34-104 [facility] Aspartate aminotransferase [ Enzymatic activity/volume] in Serum or PlasmaOrdered By: Herminio Rogel on 01-05-2023 AST [Catalytic activity/Vol] 17 U/L 13-39 [facility] Basophils Auto (Bld) [#/Vol] Ordered By: Herminio Rogel on 01-05-2023 Basophils (Bld) [#/Vol] 0.1 10*3/uL 0.0-0.2 [facility] Basophils/100 WBC Auto (Bld) Ordered By: Herminio Rogel on 01-05-2023 Basophils/100 WBC (Bld) 0.8 % . [facility] Bilirubin.total [Mass/volume ] in Serum or PlasmaOrdered By: Herminio Rogel on 01-05-2023 Bilirubin [Mass/Vol] 1.8 mg/dL 0.3-1.0 [facility] Comment on above: Samples from patient s who have taken Naproxen have shown spurious elevation in Total Bilirubin levels. A metabolite of Naproxen, O-desmethylnaproxen, has been shown to interfere with the Yovany-Delfino method for measuring Total Bilirubin. COVID CepheidOrdered By: Danii Rogel on 01-05-2023 SARS-CoV-2 (COVID-19) Ab IA Ql Negative Negative [facility] Comment on above: This is a duplicate [employer] Xpert Xpress CoV-2/Flu/RSV Plus RNA by RT-PCR result to be used for statistical tracking purpose only. SARS-CoV-2 (COVID-19) RNA AGUILA+probe Ql (Unsp spec) [facility] Calcium [Mass/volume] in Ser um or PlasmaOrdered By: Herminio Rogel on 01-05-2023 Calcium [Mass/Vol] 9.1 mg/dL 8.6-10.3 [facility] Carbon dioxide, total [Moles /volume] in Serum or PlasmaOrdered By: Herminio Rogel on 01-05-2023 CO2 [Moles/Vol] 23.3 mmol/L 21.0-31.0 [facility] Chloride [Moles/volume] in S jayson or PlasmaOrdered By: Herminio Rogel on 01-05-2023 Chloride [Moles/Vol] 106 mmol/L 98-107 [facility] Creatinine [Mass/volume] in Serum or PlasmaOrdered By: Herminio Rogel on 01-05-2023 Creatinine [Mass/Vol] 1.07 mg/dL 0.70-1.30 [facility] Eosinophils Auto (Bld) [#/Vo l]Ordered By: Herminio Rogel on 01-05-2023 Eosinophils (Bld) [#/Vol] 0.2 10*3/uL 0.0-0.45 [facility] Eosinophils/100 WBC Auto (Bl d)Ordered By: Herminio Rogel on 01-05-2023 Eosinophils/100 WBC (Bld) 1.8 % . [facility] Erythrocyte distribution wid th Auto (RBC) [Ratio]Ordered By: Herminio Rogel on 01-05-2023 Erythrocyte distribution width (RBC) [Ratio] 13.8 % 12.0-14.8 [facility] Globulin Calc (S) [Mass/Vol] Ordered By: Herminio Rogel on 01-05-2023 Globulin (S) [Mass/Vol] 3.2 g/dL [facility] Glucose [Mass/volume] in Ser um or PlasmaOrdered By: Herminio Rogel on 01-05-2023 Glucose [Mass/Vol] 105 mg/dL 70-100 [facility] Comment on above: ADA recommended refe rence rangeRandom Glucose Reference Range is dependent on time and content of last meal. Glucose of more than 200 mg/dL in a nonstressed, ambulatory subject supports the diagnosis of Diabetes Mellitus. Gram stain for investigation of transfusion reactionOrdered By: Filipe Reynolds on 01-05-2023 Microscopic observation Gram stain Nom (Unsp spec) [facility] Hematocrit Auto (Bld) [Volum e fraction]Ordered By: Herminio Rogel on 01-05-2023 Hematocrit (Bld) [Volume fraction] 46.3 % 38.8-50.0 [facility] Hemoglobin [Mass/volume] in BloodOrdered By: Herminio Rogel on 01-05-2023 Hemoglobin (Bld) [Mass/Vol] 15.5 g/dL 13.0-17.0 [facility] Laboratory - CoagulationOrde red By: Herminio Rogel on 01-05-2023 PT Coag (PPP) [Time] 17.2 s 9.0-12.9 [facility] Leukocytes [#/volume] correc jillian for nucleated erythrocytes in Blood by Automated counOrdered By: Herminio Rogel on 01-05-2023 WBC corrected for nucl RBC Auto (Bld) [#/Vol] 13.0 10*3/uL 4.1-10.5 [facility] Lymphocytes Auto (Bld) [#/Vo l]Ordered By: Herminio Rogel on 01-05-2023 Lymphocytes (Bld) [#/Vol] 2.1 10*3/uL 1.00-4.8 [facility] Lymphocytes/100 WBC Auto (Bl d)Ordered By: Herminio Rogel on 01-05-2023 Lymphocytes/100 WBC (Bld) 16.5 % . [facility] MCH Auto (RBC) [Entitic mass ]Ordered By: Herminio Rogel on 01-05-2023 MCH (RBC) [Entitic mass] 29.9 pg 27.5-35.2 [facility] MCHC Auto (RBC) [Mass/Vol]Or dered By: Herminio Rogel on 01-05-2023 MCHC (RBC) [Mass/Vol] 33.5 g/dL 32.5-35.6 [facility] MCV Auto (RBC) [Entitic vol] Ordered By: Herminio Rogel on 01-05-2023 MCV (RBC) [Entitic vol] 89.3 fL 83.5-101 [facility] Monocyte distribution width [Entitic volume] in Blood by AutomatedOrdered By: Herminio Rogel on 01-05-2023 Monocyte distribution width Auto (Bld) [Entitic vol] 19.51 % 0.00-20.00 [facility] Monocytes Auto (Bld) [#/Vol] Ordered By: Herminio Rogel on 01-05-2023 Monocytes (Bld) [#/Vol] 1.2 10*3/uL 0.0-0.8 [facility] Monocytes/100 WBC Auto (Bld) Ordered By: Herminio Rogel on 01-05-2023 Monocytes/100 WBC (Bld) 9.3 % . [facility] Natriuretic peptide B [Mass/ Vol]Ordered By: Herminio Rogel on 01-05-2023 Natriuretic peptide B (Bld) [Mass/Vol] 28.0 pg/mL 5-100 [facility] Neutrophils Auto (Bld) [#/Vo l]Ordered By: Herminio Rogel on 01-05-2023 Neutrophils (Bld) [#/Vol] 9.3 10*3/uL 1.8-7.7 [facility] Neutrophils/100 WBC Auto (Bl d)Ordered By: Herminio Rogel on 01-05-2023 Neutrophils/100 WBC (Bld) 71.6 % . [facility] No Panel InformationOrdered By: Herminio Rogel on 01-05-2023 D-Dimer Quantitative (PE/DVT) < 200 ng/mL 0-243 [facility] Comment on above: The reference range for D-dimer is <243 ng/mL D-dimer units.D-dimer results must be used in conjunction with a clinicalpretest probability (PTP) assessment model for deep veinthrombosis (DVT) and pulmonary embolism (PE). Results <230ng/mL d-dimer units can be used as a negative predictor inpatients with low or moderate probability for DVT/PE.Results above the exclusion threshold of 230 ng/ml D-dimerunits for DVT/PE may indicate the need for furtherdiagnostic testing.D-Dimer can be increased in hospitalized patients due toco-morbid conditions. Estimated GFR (CKD-EPI) > 60.0 mL/Min [facility] Creatinine Clearance (Chem 64.51 [facility] Nucleated erythrocytes [Pres ence] in Blood by Automated countOrdered By: Herminio Rogel on 01-05-2023 Nucleated RBC Auto Ql (Bld) 0.1 /100{WBC} 0-0.5 [facility] Platelet mean volume Auto (B ld) [Entitic vol]Ordered By: Herminio Rogel on 01-05-2023 Platelet mean volume (Bld) [Entitic vol] 8.2 fL 6.6-10.1 [facility] Platelet poor plasma interna tional normalized ratio (INR) by coagulation assay (relatOrdered By: Herminio Rogel on 01-05-2023 INR Coag (PPP) [Relative time] 1.5 {INR} [facility] Comment on above: INR Therapeutic Rang e A) Pre- and Peroperative OAT started two weeks before surgery. NOT HIP SURGERY: 1.5 - 2.5 HIP SURGERY: 2 - 3B) Primary and secondary prevention of venous THROMBOSIS: 2 - 3C) Active venous thrombosis, pulmonary embolismand prevention of recurrent venous thrombosis: 2 - 3D) Prevention of arterial thromboembolismincluding patients with mechanical heart valves: 3 - 4.5 Platelets Auto (Bld) [#/Vol] Ordered By: Herminio Rogel on 01-05-2023 Platelets (Bld) [#/Vol] 207 10*3/uL 150-450 [facility] Potassium [Moles/volume] in Serum or PlasmaOrdered By: Herminio Rogel on 01-05-2023 Potassium [Moles/Vol] 3.7 mmol/L 3.5-5.1 [facility] Protein [Mass/volume] in Ser um or PlasmaOrdered By: Herminio Rogel on 01-05-2023 Protein [Mass/Vol] 7.8 g/dL 6.4-8.9 [facility] RBC Auto (Bld) [#/Vol]Ordere d By: Herminio Rogel on 01-05-2023 RBC (Bld) [#/Vol] 5.19 10*6/uL 3.90-5.60 [facility] Serum or plasma albumin/glob ulin mass ratioOrdered By: Herminio Rogel on 01-05-2023 Albumin/Globulin [Mass ratio] 1.4 {ratio} [facility] Serum or plasma anion gap de terminationOrdered By: Herminio Rogel on 01-05-2023 Anion gap [Moles/Vol] 14.4 mmol/L 6.0-15.0 [facility] Sodium [Moles/volume] in Ser um or PlasmaOrdered By: Herminio Rogel on 01-05-2023 Sodium [Moles/Vol] 140 mmol/L 136-145 [facility] Troponin I.cardiac [Mass/vol ume] in Serum or Plasma by Detection limit <= 0.01 ng/Ordered By: Herminio Rogel on 01-05-2023 Troponin I.cardiac DL <= 0.01 ng/mL [Mass/Vol] 5.8 pg/mL 0.0-20.0 [facility] Urea nitrogen [Mass/volume] in Serum or PlasmaOrdered By: Herminio Rogel on 01-05-2023 Urea nitrogen [Mass/Vol] 16 mg/dL 7-25 [facility] WBC Auto (Bld) [#/Vol]Ordere d By: Herminio Rogel on 01-05-2023 WBC (Bld) [#/Vol] 13.0 10*3/uL 4.1-10.5 [facility] Office Visit (Cardiology)on 11-11-2022 Follow-up visit Diagnoses/Problems Assessed Persistent atrial fibrillation (427.31) (I48.19) Right bundle branch block (426.4) (I45.10) High risk medication use (V58.69) (Z79.899) Essential hypertension (401.9) (I10) High coronary artery calcium score (414.00) (R93.1) Overweight with body mass index (BMI) of 27 to 27.9 in adult (278.02,V85.23) (E66.3,Z68.27) Former smoker (V15.82) (Z87.891) Orders Persistent atrial fibrillation Renew: Aspirin EC 81 MG Oral Tablet Delayed Release; TAKE 1 TABLET Weekly Renew: Xarelto 20 MG Oral Tablet; TAKE 1 TABLET BY MOUTH EVERY DAY SocHx: Former smoker Tobacco Use Screening; Status:Complete; Done: [id number] Patient Instructions Please bring all medicines, vitamins, and herbal supplements with you when you come to the office. Prescriptions will not be filled unless you are compliant with your follow up appointments or have a follow up appointment scheduled as per instruction of your physician. Refills should be requested at the time of your visit. Follow up in 6 months The provider reviewed the following test(s) and result(s) with the patient: ECG Chief Complaint LEXI TORRES is being seen for a 6 month follow-up of. Patient is in the office for follow-up for paroxysmal atrial fibrillation and who is presently in normal sinus rhythm on current therapy with dofetilide and long-term anticoagulation. There has been no breakthrough atrial fibrillation. He is doing very well without any complaints. He is slightly overweight. EKG showed normal QTc interval. Recent lab data were reviewed by myself and discussed with the patient. He does have stage III chronic kidney disease which has not been progressive. Assessment/recommendations : 1?persistent atrial fibrillation status post cardioversion October 2019, currently in sinus rhythm on dofetilide and long-term anticoagulation with Xarelto with no breakthrough events. Present medical therapy will left unchanged 2?hypertension currently under control on beta theodora and amlodipine 3?overweight, encouraged patience diet control 4?reactive airway disease on Advair and Ventolin which will continue 5?high-risk medication with antiarrhythmic and anticoagulants, 6?elevated coronary calcium score over 1000, stress test 2019 was normal. Presently on aspirin and statin. LDL on target 7?hyperlipidemia under excellent control on statin Patient will follow up with me in the office in 6 months Surgical History Problems History of Cataract surgery History of Complete colonoscopy History of Lithotripsy History of Toe amputation Current Meds Medication NameInstruction Albuterol Sulfate HFA 108 (90 Base) MCG/ACT Inhalation Aerosol SolutionINHALE 2 PUFFS BY MOUTH EVERY 6 HOURS NEEDED amLODIPine Besylate 10 MG Oral TabletTAKE 1 TABLET BY MOUTH ONCE DAILY Aspirin EC 81 MG Oral Tablet Delayed ReleaseTAKE 1 TABLET Weekly Atorvastatin Calcium 20 MG Oral Tablettake 1 tablet by mouth daily at bedtime Budesonide-Formoterol Fumarate 160-4.5 MCG/ACT Inhalation AerosolUSE DIRECTED. Dofetilide 250 MCG Oral CapsuleTAKE 1 CAPSULE TWICE DAILY. Metoprolol Succinate ER 50 MG Oral Tablet Extended Release 24 HourTAKE 1 TABLET BY MOUTH DAILY Ventolin HFA 108 (90 Base) MCG/ACT Inhalation Aerosol SolutionINHALE 1 PUFF EVERY 4 HOURS NEEDED. Xarelto 20 MG Oral TabletTAKE 1 TABLET BY MOUTH EVERY DAY Allergies Medication No Known Drug Allergies Recorded By: Zakia Karimi; 09/11/2021 4:54:44 PM Social History Problems Alcohol use (V49.89) (Z78.9) 1x yearly Caffeine use (V49.89) (Z78.9) 1cup of coffee daily Former smoker (V15.82) (Z87.891) No illicit drug use Review of Systems Constitutional: not feeling tired. Cardiovascular: no intermittent leg claudication and as noted in HPI. Respiratory: no cough and no shortness of breath. Gastrointestinal: no change in bowel habits and no blood in stools. Integumentary: no skin rashes. Neurological: no seizures and no frequent falls. All other systems have been reviewed and are negative for complaint. EKG done in office today Vitals Vital Signs Recorded: 11Nov2022 10:49AM Heart Rate55, Apical [id number], RUE, Sitting [id number], RUE, Sitting Height5 ft 11 in Qrelip018 lb BMI Vicfexylzn63.34 kg/m2 BSA Calculated2.09 Tobacco Useb) No PHQ-2 #1. Over the last 2 weeks have you felt down, depressed or hopeless? (If yes, answer PHQ-9 below)No PHQ-2 #2. Over the last 2 weeks have you felt little interest or pleasure in doing things? (If yes, answer PHQ-9 below)No Falls Screening (Age 18+)a) No falls within the last year Physical Exam Constitutional: alert and in no acute distress. Neck: neck is supple, symmetric, trachea midline, no masses and no thyromegaly . Pulmonary: no increased work of breathing or signs of respiratory distress and lungs clear to auscultation. Cardiovascular: carotid pulses 2+ bilaterally with no bruit , JVP was normal, no thrills , re (more content not included)... Normal [facility] Tobacco Screening.on 022 Adult depression screening assessment No [facility] [employer] [address] DO Work Phone: Fall risk assessment a) No falls within the last year [facility] k 600 DO Work Phone: Tobacco use status CPHS b) No [facility] k 600 DO Work Phone: URINALYSISOrdered By: Rodriugez Wallis on 02-12-2022 Bilirubin Ql (U) 1+ *ABN* (02/12/22 2:39 PM) Invalid Interpretation Code Negative [facility] UA Auto SS Calcium oxalate crystals LM Ql (Urine sed) Present (02/12/22 2:39 PM) Normal [facility] UA Auto SS Clarity (U) Slightly Cloudy *ABN* (02/12/22 2:39 PM) Invalid Interpretation Code Clear [facility] UA Auto SS Color (U) Dark Yellow *ABN* (02/12/22 2:39 PM) Invalid Interpretation Code Yellow [facility] UA Auto SS Epithelial cells.squamous LM.HPF (Urine sed) [#/Area] 0-2 /HPF Normal 0-2/HPF [facility] UA Aut o SS Fine Granular Casts LM Ql (Urine sed) 0-3 (02/12/22 2:39 PM) Normal [facility] UA Auto SS Glucose Test strip (U) [Mass/Vol] Trace *ABN* (02/12/22 2:39 PM) Invalid Interpretation Code Negative [facility] UA Auto SS Hemoglobin Ql (U) 3+ *ABN* (02/12/22 2:39 PM) Invalid Interpretation Code Negative [facility] UA Auto SS Ketones (U) [Mass/Vol] 1+ *ABN* (02/12/22 2:39 PM) Invalid Interpretation Code Negative [facility] UA Auto SS Reservoir.plasma/Reservoir .RBC (Bld) [Mass ratio] >75 /HPF Invalid Interpretation Code 0-3/HPF [facility] UA Auto SS Mucus Ql (Urine sed) 2+ (02/12/22 2:39 PM) Normal [facility] UA Auto SS Nitrite Ql (U) Negative (02/12/22 2:39 PM) Normal Negative [facility] UA Auto SS pH (U) 6.0 *NA* (02/12/22 2:39 PM) Invalid Interpretation Code 5.0 - 9.0 [facility] UA Auto SS Protein (U) [Mass/Vol] 1+ *ABN* (02/12/22 2:39 PM) Invalid Interpretation Code Negative [facility] UA Auto SS Specific gravity (U) [Rel density] 1.025 *NA* (02/12/22 2:39 PM) Invalid Interpretation Code 1.005 - 1.030 [facility] UA Auto SS UA Spec Desc Clean Catch (02/12/22 2:39 PM) Normal [facility] Auto SS Urobilinogen Qn (U) 1.4174420 {Chris'U}/dL Normal 0.0 - 1.0 EU/dL [facility] UA Auto SS WBC Auto Ql (U) Trace *ABN* (02/12/22 2:39 PM) Invalid Interpretation Code Negative [facility] UA Auto SS WBC LM.HPF (Urine sed) [#/Area] 0-5 /HPF Normal 0-5/HPF [facility] UA Auto SS XR KUB 1 VIEWon 02-11-2022 XR KUB 1 VIEW EXAMINATION: XR KUB 1 VIEW HISTORY: Kidney stone COMPARISON: XR KUB 12/23/2021 FINDINGS: KIDNEY/URETER - RIGHT: No visible renal or ureteral calcifications. KIDNEY/URETER - LEFT: No visible renal or ureteral calcifications. PELVIS: No visible ureteral stones. Stable pelvic calcifications favoring phleboliths. BOWEL: No abnormal dilation or deviation. BONES: No acute abnormality. OTHER: Negative. No abnormal gaseous collections. IMPRESSION: 1. No appreciable urinary tract calculi. Suspect removal versus passage of previously seen left kidney stone. Electronically authenticated by: NANCY KOO Date: 2022-02-11 10:[address] [facility] CHEMISTRYOrdered By: SYSTEM SYSTEM on 01-08-2022 Anion gap [Moles/Vol] 14 mmol/L Normal 6 - 16 mEq/L [facility] Remisol Calcium [Mass/Vol] 9.3 mg/dL Normal 8.9 - 11. 1 mg/dL [facility] Remisol Chloride [Moles/Vol] 102 mmol/L Normal 101 - 1 11 mmol/L [facility] Rem[facility] CO2 [Moles/Vol] 24 mmol/L Normal 21 - 31 mmol/L [facility] Remisol Creatinine [Mass/Vol] 1.0 mg/dL Normal 0.5 - 1.3 mg/dL [facility] Remisol GFR/1.73 sq M.predicted among blacks MDRD (S/P/Bld) [Vol rate/Area] mL/min/1.73 m2 Normal >=59mL/min /1.73 m2 [facility] Chem S GFR/1.73 sq M.predicted among non-blacks MDRD (S/P/Bld) [Vol rate/Area] mL/min/1.73 m2 Normal >=59mL/min /1.73 m2 [facility] Chem S Glucose [Mass/Vol] 142 mg/dL Normal 55 - 199 mg/dL [facility] Rem[facility] Potassium [Moles/Vol] 3.4 mmol/L Low 3.5 - 5.3 mmol/L [facility] Sodium [Moles/Vol] 137 mmol/L Normal 135 - 145 mmol/L [facility] Urea nitrogen [Mass/Vol] 13 mg/dL Normal 5 - 21 mg/dL [facility] Urea nitrogen/Creatinine [Mass ratio] 13 mg/mg Normal 10 - 20 [facility] COAGULATIONOrdered By: Jonathon Foster on 01-08-2022 aPTT Coag (PPP) [Time] 38.5 s High 25.1 - 36.5 second(s) [facility] Auto Coag INR Coag (PPP) [Relative time] 1.3 {INR} Invalid Interpretation Code [facility] Auto Coag PT Coag (PPP) [Time] 15.4 s High 10.2 - 12.9 second(s) [facility] Auto Coag HEMATOLOGYOrdered By: SYSTEM SYSTEM on 01-08-2022 Basophils/100 WBC (Bld) 0.7 % Normal 0.0 - 2.0 % [facility] HemeAutoSS Basophils/Leukocytes Auto (Bld) [Pure # fraction] 0.1 E9/L Normal 0.0 - 0.2 E9/L [facility] HemeAutoSS Eosinophils/100 WBC (Bld) 1.2 % Normal 0.0 - 8.0 % [facility] HemeAutoSS Eosinophils/Leukocytes Auto (Bld) [Pure # fraction] 0.1 E9/L Normal 0.0 - 0.5 E9/L [facility] HemeAutoSS Lymphocytes/100 WBC (Bld) 19.5 % Normal 14.0 - 50.0 % [facility] HemeAutoSS Lymphocytes/Leukocytes Auto (Bld) [Pure # fraction] 1.7 E9/L Normal 1.0 - 4.0 E9/L [facility] HemeAutoSS Monocytes/100 WBC (Bld) 9.4 % Normal 4.0 - 14.0 % [facility] HemeAutoSS Monocytes/Leukocytes Auto (Bld) [Pure # fraction] 0.8 E9/L Normal 0.2 - 1.0 E9/L [facility] HemeAutoSS Neutrophils/100 WBC (Bld) 69.2 % Normal 36.0 - 75.0 % [facility] HemeAutoSS Neutrophils/Leukocytes Auto (Bld) [Pure # fraction] 5.9 E9/L Normal 2.0 - 7.5 E9/L [facility] HemeAutoSS HEMATOLOGYOrdered By: Mary Hartley on 01-08-2022 Erythrocyte distribution width (RBC) [Ratio] 13.2 % Normal 10.9 - 14.2 % [facility] HemeAutoSS Hematocrit (Bld) [Volume fraction] 42.7 % Normal 37.7 - 49.0 % [facility] HemeAutoSS Hemoglobin (Bld) [Mass/Vol] 15.1 g/dL Normal 13.5 - 17.5 gm/dL [facility] HemeAutoSS MCH (RBC) [Entitic mass] 30.9 pg Normal 27.0 - 34.0 pg [facility] HemeAutoSS MCHC (RBC) [Mass/Vol] 35.5 g/dL Normal 31.4 - 36.0 gm/dL [facility] HemeAutoSS MCV (RBC) [Entitic vol] 87.0 fL Normal 80.0 - 100.0 fL [facility] HemeAutoSS Platelet mean volume (Bld) [Entitic vol] 8.6 fL Normal 6.4 - 10.8 fL [facility] HemeAutoSS Platelets (Bld) [#/Vol] 175.0 E9/L Normal 150.0 - 500.0 E9/L [facility] HemeAutoSS RBC (Bld) [#/Vol] 4.9 E12/L Normal 4.3 - 5.9 E12/L [facility] HemeAutoSS WBC corrected for nucl RBC Auto (Bld) [#/Vol] 8.5 E9/L Normal 4.0 - 11.0 E9/L [facility] HemeAutoSS URINALYSISOrdered By: Jonathon june on 01-08-2022 Bilirubin Ql (U) Negative (01/08/22 2:01 PM) Normal Negative [facility] UA Auto SS Clarity (U) Clear (01/08/22 2:01 PM) Normal Clear [facility] UA Auto SS Color (U) Yellow (01/08/22 2:01 PM) Normal Yellow [facility] UA Auto SS Epithelial cells.squamous LM.HPF (Urine sed) [#/Area] 0-2 /HPF Normal 0-2/HPF [facility] UA Aut o SS Glucose Test strip (U) [Mass/Vol] Negative (01/08/22 2:01 PM) Normal Negative [facility] UA Auto SS Hemoglobin Ql (U) 3+ *ABN* (01/08/22 2:01 PM) Invalid Interpretation Code Negative [facility] UA Auto SS Ketones (U) [Mass/Vol] Negative (01/08/22 2:01 PM) Normal Negative [facility] UA Auto SS Reservoir.plasma/Reservoir .RBC (Bld) [Mass ratio] >75 /HPF Invalid Interpretation Code 0-3/HPF [facility] UA Auto SS Nitrite Ql (U) Negative (01/08/22 2:01 PM) Normal Negative [facility] UA Auto SS pH (U) 6.0 *NA* (01/08/22 2:01 PM) Invalid Interpretation Code 5.0 - 9.0 [facility] UA Auto SS Protein (U) [Mass/Vol] Trace *ABN* (01/08/22 2:01 PM) Invalid Interpretation Code Negative [facility] UA Auto SS Specific gravity (U) [Rel density] 1.010 *NA* (01/08/22 2:01 PM) Invalid Interpretation Code 1.005 - 1.030 [facility] UA Auto SS UA Spec Desc Clean Catch (01/08/22 2:01 PM) Normal [facility] UA Auto SS Urobilinogen Qn (U) 0.5278952 {Chris'U}/dL Normal 0.0 - 1.0 EU/dL [facility] UA Auto SS WBC Auto Ql (U) Negative (01/08/22 2:01 PM) Normal Negative [facility] UA Auto SS WBC LM.HPF (Urine sed) [#/Area] 0-5 /HPF Normal 0-5/HPF [facility] UA Auto SS XR KUB 1 VIEWon 12-23-2021 XR KUB 1 VIEW EXAMINATION: XR KUB 1 VIEW HISTORY: Kidney stone r COMPARISON: No relevant comparison available. FINDINGS: KIDNEY/URETER - RIGHT: No visible renal or ureteral calcifications. KIDNEY/URETER - LEFT: 6.6 mm calcification PELVIS: No visible pelvic calcifications, vascular phleboliths are favored BOWEL: No abnormal dilation or deviation. Moderate stool in the rectum BONES: No acute abnormality. OTHER: Negative. No abnormal gaseous collections. IMPRESSION: 6.6 mm left nephrolith Electronically authenticated by: SILVERIO GUAJARDO Date: 2021-12-23 17:48 Normal [facility] Tobacco Screening.on 022 Adult depression screening assessment No [facility] [place] [address] DO Work Phone: Fall risk assessment a) No falls within the last year [facility] [place] [address] DO Work Phone: Tobacco use status CPHS b) No [facility] [place] [address] DO Work Phone: BUNon 10-14-2021 Urea nitrogen [Mass/Vol] 8 mg/dL Normal 7-25 [facility] Comment on above: Performed By: #### C BC, LYTES, BUN, CREA #### [facility] [address] [place], [place] [id number] Complete Blood Counton 10-14 Erythrocyte distribution width (RBC) [Ratio] 12.7 % Normal 11.0-15.0 [facility] Comment on above: Performed By: #### C BC, LYTES, BUN, CREA #### [facility] [address] [place], [place] [id number] Hematocrit (Bld) [Volume fraction] 46.3 % Normal 38.5-50.0 [facility] Comment on above: Performed By: #### C BC, LYTES, BUN, CREA #### [facility] [address] [place], [place] [id number] Hemoglobin (Bld) [Mass/Vol] 15.5 g/dL Normal 13.0-17.1 [facility] Comment on above: Performed By: #### C BC, LYTES, BUN, CREA #### [facility] [address] [place], [place] [id number] MCH (RBC) [Entitic mass] 30.2 pg Normal 27.0-33.0 [facility] Comment on above: Performed By: #### C BC, LYTES, BUN, CREA #### [facility] [address] [place], [place] [id number] MCHC (RBC) [Mass/Vol] 33.5 g/dL Normal 32.0-36.0 [facility] Comment on above: Performed By: #### C BC, LYTES, BUN, CREA #### [facility] [address] [place], [place] [id number] MCV (RBC) [Entitic vol] 90 fL Normal 80-100 [facility] Comment on above: Performed By: #### C BC, LYTES, BUN, CREA #### [facility] [address] [place], [place] [id number] Platelet mean volume (Bld) [Entitic vol] 10.70 fL Normal 7.50-12.50 [facility] Comment on above: Performed By: #### C BC, LYTES, BUN, CREA #### [facility] [address] [place], [place] [id number] Platelets (Bld) [#/Vol] 226 10*3/uL Normal 140-400 [facility] Comment on above: Performed By: #### C BC, LYTES, BUN, CREA #### [facility] [address] [place], [place] [id number] RBC (Bld) [#/Vol] 5.14 10*6/uL Normal 4.20-5.80 [facility] Comment on above: Performed By: #### C BC, LYTES, BUN, CREA #### [facility] [address] [place], [place] [id number] RDW-SD 41.6 fL Normal 37.0-50.0 [facility] Comment on above: Performed By: #### C BC, LYTES, BUN, CREA #### [facility] [address] [place], [place] [id number] WBC (Bld) [#/Vol] 11.4 10*3/uL High 3.8-11.0 [facility] Comment on above: Performed By: #### C BC, LYTES, BUN, CREA #### [facility] [address] [place], [place] [id number] Creatinineon 10-14-2021 Creatinine [Mass/Vol] 1.1 mg/dL Normal 0.7-1.4 [facility] Comment on above: Performed By: #### C BC, LYTES, BUN, CREA #### [facility] [address] [place], [place] [id number] eGFRAA 84 mL/min/1.73m2 Normal >60 [facility] Comment on above: Performed By: #### C BC, LYTES, BUN, CREA #### [facility] [address] [place], [place] [id number] eGFRNAA 69 mL/min/1.73m2 Normal >60 [facility] Comment on above: Performed By: #### C BC, LYTES, BUN, CREA #### [facility] [address] [place], [place] [id number] Electrolyte Panelon 10-14-19 22 Anion gap [Moles/Vol] 20 mmol/L Normal 12-20 [facility] Comment on above: Result Comment: Effe ctive 09/05/2019 reference range changed. Performed By: #### C BC, LYTES, BUN, CREA #### [facility] [address] [place], [place] [id number] Chloride [Moles/Vol] 105 mmol/L Normal 98-107 [facility] Comment on above: Performed By: #### C BC, LYTES, BUN, CREA #### [facility] [address] [place], [place] [id number] CO2 [Moles/Vol] 22 mmol/L Normal 20-31 [facility] Comment on above: Performed By: #### C BC, LYTES, BUN, CREA #### [facility] [address] [place], [place] [id number] Potassium [Moles/Vol] 3.8 mmol/L Normal 3.5-5.5 [facility] Comment on above: Performed By: #### C BC, LYTES, BUN, CREA #### [facility] [address] [place], [place] [id number] Sodium [Moles/Vol] 143 mmol/L Normal 135-146 [facility] Comment on above: Performed By: #### C BC, MANISH, JUAN, CREA #### [facility] [address] [facility] [place] [place] [id number] [facility] CARDIAC SCORINGon 12-29 CT CARDIAC SCORING Addendum Begins Patient Name: LEXI TORRES ADDENDUM: Technical: The following is to serve as an over-read for an unenhanced cardiac CT, to evaluate the extra vascular structures. Contiguous unenhanced CT sections are performed from the level of the main pulmonary artery to the upper abdomen. Findings: There is linear subpleural atelectasis in the right middle lobe and left lower lobe. The visualized portions of both lungs are otherwise clear. There is no sign of pathologic lymph node enlargement. There is no pericardial or pleural effusion. There is a tiny hiatal hernia. There is a round hypodensity in the left hepatic lobe measuring 1.5 cm in diameter is poorly characterized suspicious for small cysts. The visualized osseous and soft tissue structures of the chest wall are intact. Impression: Tiny hiatal hernia. Incidental 1.5 cm hepatic cyst. The extra vascular structures are otherwise unremarkable. Electronically signed by: KENZIE BARLOW MD Addendum Ends Patient Name: LEXI TORRES STUDY: CT CARDIAC SCORING; 01/09/2020 2:59 pm INDICATION: ABN EKG PERSISTENT AFIB. COMPARISON: None. ACCESSION NUMBER(S): [id number] ORDERING CLINICIAN: SANDRA RAI TECHNIQUE: Using prospective ECG gating, CT scan of the coronary arteries was performed without intravenous contrast. Coronary calcium scoring was performed according to the method of Agatston. CT Dose-Length Product (DLP): 60.7 mGy*cm CT Dose Reduction Employed: Yes, prospective gating, iterative reconstruction. FINDINGS: The score and distribution of calcium in the coronary arteries is as follows: LM 61 LAD 499 LCx 395 RCA 607 Total 1561 The visualized ascending thoracic aorta measures 3.4 cm in diameter. The heart is normal in size. No pericardial effusion is present. The main pulmonary artery, right and left pulmonary artery are normal in size. IMPRESSION: 1. Coronary artery calcium score of 1561*. 2. 91st percentile for age, gender in asymptomatic patients. *Coronary Artery Agatston score Score risk Very low 1-99 Mildly increased 100-299 Moderately increased >300 Moderate to severely increased >800 Gladys et al. JCCT 2016 (http://dx.doi.org/10.1016 /j.jcct.2016.11.003) SHAH Percentile In general, greater than 75th percentile for age, gender, and race is considered to be a higher relative risk and higher lifetime risk condition. Greater than 75th percentile=moderate to severely increased relative risk irrespective of the score. Advise using SHAH 10 year CHD risk calculator below for better discrimination of risk. SHAH 10-Year CHD Risk with Coronary Artery Calcification can be calcuate using link below https://www.shah-nhlbi.org /MESACHDRisk/MesaRiskScore /RiskScore.aspx Ifeoma chauhan al. JACC 2014 (http://dx.doi.org/10.1016 /j.j acc.2015.08.035) Reading Cardiac Nurse Practitioner: Dr. Aung Bryant, Date: 01/10/2020 2:34 pm Electronically signed by: KENZIE BARLOW MD [facility] CARDIAC STRESS/REST INJE CTIONon 09-28-2019 [facility] CARDIAC STRESS/REST INJECTION Patient Name: LEXI TORRES STUDY: MYOCARDIAL PERFUSION STRESS TEST WITH LEXISCAN Performing facility: [facility], [address] [place] [address], [address] Provider: Sandra Rai MD, FACC PCP: Dr. Irma VELASCO Supervising provider: Edvin Mccracken DO, [facility] INDICATION: ABN EKG Hyperlipidemia HISTORY: Gender: M; Age: 68 y/o ; Height: 0 cm; Weight: 90.2464016 kg. High Cholesterol; HTN; SOB Arrhythmias; AFIB Abnormal EKG; RBBB Quit smoking 1994. COMPARISON: Previous nuclear testing completed 2007 at [facility]. ACCESSION NUMBER(S): [id number]; [id number]; [id number] ORDERING CLINICIAN: SANDRA RAI TECHNIQUE: ONE DAY protocol. Stress injection: Date:09/28/2019, 34.9 mCi of Myoview IV 20 seconds after rapid injection of Lexiscan. Rest injection: Date: 09/28/2019, 11.7 mCi of Myoview IV at rest. The patient had a rapid injection of 0.4 mg of Lexiscan IV over 10 seconds. Imaging was performed by gated tomographic technique. Reason for Lexiscan: ON BETA BLOCER STRESS TEST DATA: Resting heart rate was 88 BPM. Resting blood pressure was 142/94 mmHg. Peak blood pressure was 146/90 mmHg. Peak heart rate was 126 BPM. TEST TERMINATED DUE TO: Protocol completed FINDINGS: STRESS TEST RESULTS: Resting electrocardiogram revealed atrial fibrillation with nonspecific ST-T changes. There were no significant ischemic ECG changes or dysrhythmias. The patient did not have chest pains/symptoms during procedure. There was a normal recovery phase. IMAGING RESULTS: Image quality was good. Rest and stress tomographic images were reviewed and revealed normal perfusion without evidence of ischemia, myocardial infarction, or left ventricular dilatation with stress. Overall left ventricular systolic function appeared to be abnormal. However the presence of atrial fibrillation will render the EF calculation inaccurate Ejection fraction was 28%. TID is 1.09 and is normal. There were evidence of apical attenuation artifact. IMPRESSION: Abormal Lexiscan Myoview cardiac perfusion stress test. No evidence of ischemia or myocardial infarction by perfusion imaging. Abormal left ventricular systolic function, ejection fraction 28%. But please note the presence of atrial fibrillation will render the LVEF calculation inaccurate Study compared to previous study back in 2007. Previous study patient was in normal sinus rhythm. Previous study LV EF was normal. Electronically signed by: ÓSCAR ROGERS MD Normal [facility] Vital Signs Date Time Vital Sign Value Performing Clinician Carlene eduardo 12-08-2024 11:35-0400 Body height 180.3 cm Sandra Rai MD Work Phone: [facility] 12-08-2024 11:35-0400 Body mass index (BMI) [Ratio] 27.09 kg/m2 Sandra Rai MD Work Phone: [facility] 12-08-2024 11:35-040 Body weight 88.09 kg Sandra Rai MD Work Phone: [facility] 12-08-2024 11:35-0400 Diastolic blood pressure 62 mm[Hg] Sandra Rai MD Work Phone: [facility] 12-08-2024 11:35-0400 Heart rate 76 /min Sandra Rai MD Work Phone: [facility] 12-08-2024 11:35-0400 Systolic blood pressure 122 mm[Hg] Sandra Rai MD Work Phone: [facility] 10-11-2024 13:30-0500 Body height 178.44 cm [facility] 10-11-2024 13:30-0500 Body mass index (BMI) [Ratio] 27.5 kg/m2 [facility] 10-11-2024 13:30-0500 Body temperature 97.4 [degF] [facility] 10-11-2024 13:30-0500 Body weight 87.54 kg [facility] 10-11-2024 13:30-0500 Diastolic blood pressure 84 mm[Hg] [facility] 10-11-2024 13:30-0500 Heart rate 61 /min [facility] 10-11-2024 13:30-0500 Respiratory rate 20 /min [facility] 10-11-2024 13:30-0500 SaO2% (BldA) [Mass fraction] 97 % [facility] 10-11-2024 13:30-0500 Systolic blood pressure 171 mm[Hg] [facility] 10-04-2024 11:21-0500 Diastolic blood pressure 78 mm[Hg] ISAURA DEL ROSARIO [facility] 10-04-2024 11:21-0500 Mean blood pressure 103 mm[Hg] ISAURA DEL ROSARIO [facility] 10-04-2024 11:21-0500 Systolic blood pressure 153 mm[Hg] ISAURA DEL ROSARIO [facility] 10-04-2024 11:14-0500 Blood Pressure Location ISAURA DEL ROSARIO [facility] 10-04-2024 11:14-0500 Body temperature 98.6 [degF] ISAURA MIGUEL ÁNGEL [facility] 10-04-2024 11:14-0500 Diastolic blood pressure 76 mm[Hg] ISAURA MIGUEL ÁNGEL [facility] 10-04-2024 11:14-0500 Heart rate 68 /min ISAURA MIGUEL ÁNGEL [facility] 10-04-2024 11:14-0500 Respiratory rate 18 /min ISAURA MIGUEL ÁNGEL [facility] 10-04-2024 11:14-0500 Systolic blood pressure 153 mm[Hg] ISAURA MIGUEL ÁNGEL [facility] 07-12-2024 10:40-0500 Body height 180.3 cm Sandra Rai MD Work Phone: [facility] 07-12-2024 10:40-0500 Body mass index (BMI) [Ratio] 27.06 kg/m2 Sandra Rai MD Work Phone: [facility] 07-12-2024 10:40-0500 Body weight 88 kg Sandra Rai MD Work Phone: [facility] 07-12-2024 10:40-0500 Diastolic blood pressure 62 mm[Hg] Sandra Rai MD Work Phone: [facility] 07-12-2024 10:40-0500 Heart rate 53 /min Sandra Rai MD Work Phone: [facility] 07-12-2024 10:40-0500 Systolic blood pressure 138 mm[Hg] Sandra Rai MD Work Phone: [facility] 03-08-2024 13:46-0400 Body height 178.44 cm DO Zane Navarroer Work Phone: [facility] 03-08-2024 13:46-0400 Body mass index (BMI) [Ratio] 27.9 kg/m2 DO Zane Navarroer Work Phone: [facility] 03-08-2024 13:46-0400 Body temperature 97.1 [degF] DO Zane Navarroer Work Phone: [facility] 03-08-2024 13:46-0400 Body weight 88.9 kg DO Zane Navarroer Work Phone: [facility] 03-08-2024 13:46-0400 Diastolic blood pressure 80 mm[Hg] DO Zane Navarroer Work Phone: [facility] 03-08-2024 13:46-0400 Heart rate 67 /min DO Zane Navarroer Work Phone: [facility] 03-08-2024 13:46-0400 Respiratory rate 20 /min DO Zane Velasco Work Phone: [facility] 03-08-2024 13:46-0400 SaO2% (BldA) [Mass fraction] 97 % DO Zane Velasco Work Phone: [facility] 03-08-2024 13:46-0400 Systolic blood pressure 157 mm[Hg] DO Zane Navarroer Work Phone: [facility] 02-23-2024 13:03-0400 Blood Pressure Location ISAURABRENT DEL ROSARIO [facility] 02-23-2024 13:03-0400 Diastolic blood pressure 84 mm[Hg] ISAURA MIGUEL ÁNGEL [facility] 02-23-2024 13:03-0400 Heart rate 80 /min ISAURA MIGUEL ÁNGEL [facility] 02-23-2024 13:03-0400 Respiratory rate 16 /min ISAURA EDL ROSARIO [facility] 02-23-2024 13:03-0400 Systolic blood pressure 137 mm[Hg] ISAURA DEL ROSARIO [facility] 11-26-2023 11:38-0400 Diastolic blood pressure 76 mm[Hg] Sandra Rai MD Work Phone: [facility] 11-26-2023 11:38-0400 Systolic blood pressure 138 mm[Hg] Sandra Rai MD Work Phone: [facility] 11-26-2023 11:14-0400 Body height 180.3 cm Sandra Rai MD Work Phone: [facility] 11-26-2023 11:14-0400 Body mass index (BMI) [Ratio] 28.17 kg/m2 Sandra Rai MD Work Phone: [facility] 11-26-2023 11:14-0400 Body weight 91.63 kg Sandra Rai MD Work Phone: [facility] 11-26-2023 11:14-0400 Heart rate 55 /min Sandra Rai MD Work Phone: [facility] 05-21-2023 11:40-0400 Diastolic blood pressure 78 mm[Hg] Zane Velasco Work Phone: [facility] DO Work Phone: 05-21-2023 11:40-0400 Systolic blood pressure 150 mm[Hg] Zane Velasco Work Phone: [facility] 250 DO Work Phone: 05-21-2023 11:16-0400 Body height 180.34 cm Zane Velasco Work Phone: [facility] 250 DO Work Phone: 05-21-2023 11:16-0400 Body mass index (BMI) [Ratio] 27.62 kg/m2 Zane Velasco Work Phone: [facility] 250 DO Work Phone: 05-21-2023 11:16-0400 Body surface area Derived from formula 2.1 m2 Zane Velasco Work Phone: [facility] DO Work Phone: 05-21-2023 11:16-0400 Body weight 89.81 kg Zane Velasco Work Phone: [facility] 250 DO Work Phone: 05-21-2023 11:16-0400 Diastolic blood pressure 62 mm[Hg] Zane Velasco Work Phone: [facility] 250 DO Work Phone: 05-21-2023 11:16-0400 Heart rate 56 /min Zane Velasco Work Phone: [facility] 250 DO Work Phone: 05-21-2023 11:16-0400 Systolic blood pressure 142 mm[Hg] Zane Velasco Work Phone: [facility] 250 DO Work Phone: 02-24-2023 13:45-0400 Body height 178.44 cm Ozzy Chan Other [employer] Other 02-24-2023 13:45-0400 Body mass index (BMI) [Ratio] 27.78 kg/m2 Ozzy Chan Other [employer] Other 02-24-2023 13:45-0400 Body temperature 97.3 [degF] Ozzy Chan Other [employer] Other 02-24-2023 13:45-0400 Body weight 88.45 kg Christjoon Briceñono Other [employer] Other 02-24-2023 13:45-0400 Diastolic blood pressure 79 mm[Hg] Christliloer Dustin Other [employer] Other 02-24-2023 13:45-0400 Respiratory rate 20 /min Christliloer Dustin Other [employer] Other 02-24-2023 13:45-0400 SaO2% (BldA) [Mass fraction] 95 % Adriener Dustin Other [employer] Other 02-24-2023 13:45-0400 Systolic blood pressure 157 mm[Hg] Adriener Dustin Other [employer] Other 01-07-2023 08:59-0400 Heart rate 79 /min DO Zane Navarroer Work Phone: [facility] 01-07-2023 08:59-0400 Respiratory rate 20 /min DO Zane Navarroer Work Phone: [facility] 01-07-2023 08:00-0400 Diastolic blood pressure 75 mm[Hg] DO Zane Krista Work Phone: [facility] 01-07-2023 08:00-0400 SaO2% (BldA) [Mass fraction] 92 % DO Zane Navarroer Work Phone: [facility] 01-07-2023 08:00-0400 Systolic blood pressure 146 mm[Hg] DO Zane Krista Work Phone: [facility] 01-07-2023 00:17-0400 Body temperature 97.4 [degF] DO Zane Rkista Work Phone: [facility] 01-06-2023 16:14-0400 Inhaled oxygen flow rate 1 L/min DO Zane Velasco Work Phone: [facility] 01-06-2023 13:12-0400 Body height 180.34 cm DO Zane Velasco Work Phone: [facility] 01-06-2023 06:02-0400 Body weight 88.2 kg DO Zane Velasco Work Phone: [facility] 01-05-2023 15:58-0400 Diastolic blood pressure 67 mm[Hg] DO Zane Velasco Work Phone: [phone] [place] [address] 01-05-2023 15:58-0400 Heart rate 71 /min DO Zane Velasco Work Phone: [facility] 01-05-2023 15:58-0400 Inhaled oxygen flow rate 2 L/min DO Zane Velasco Work Phone: [facility] 01-05-2023 15:58-0400 Respiratory rate 18 /min DO Zane Velasco Work Phone: [facility] 01-05-2023 15:58-0400 SaO2% (BldA) [Mass fraction] 94 % DO Zane Velasco Work Phone: [facility] 01-05-2023 15:58-0400 Systolic blood pressure 143 mm[Hg] DO Zane Velasco Work Phone: [facility] 01-05-2023 13:30-0400 Body height 180.34 cm DO Zane Velasco Work Phone: [facility] 01-05-2023 13:30-0400 Body weight 88.45 kg DO Zane Krista Work Phone: [facility] 01-05-2023 13:29-0400 Body temperature 97.8 [degF] DO Zane Krista Work Phone: [facility] 04-24-2022 13:53-0400 Body height 180.34 cm Zane Velasco Work Phone: [facility] 600 DO Work Phone: 04-24-2022 13:53-0400 Body mass index (BMI) [Ratio] 26.92 kg/m2 Zane Velasco Work Phone: [facility] 600 DO Work Phone: 04-24-2022 13:53-0400 Body surface area Derived from formula 2.08 m2 Zane Velasco Work Phone: [facility] 600 DO Work Phone: 04-24-2022 13:53-0400 Body weight 87.54 kg Zane Velasco Work Phone: [facility] 600 DO Work Phone: 04-24-2022 13:53-0400 Diastolic blood pressure 66 mm[Hg] Zane Velasco Work Phone: [facility] 600 DO Work Phone: 04-24-2022 13:53-0400 Heart rate 70 /min Zane Velasco Work Phone: [facility] 600 DO Work Phone: 04-24-2022 13:53-0400 Systolic blood pressure 120 mm[Hg] Zane Velasco [facility] Work Phone: 02-12-2022 13:08-0400 Blood Pressure Location ISAURA MIGUEL ÁNGEL [facility] 02-12-2022 13:08-0400 Diastolic blood pressure 78 mm[Hg] ISAURA DEL ROSARIO [facility] 02-12-2022 13:08-0400 Heart rate 72 /min ISAURA DEL ROSARIO [facility] 02-12-2022 13:08-0400 Systolic blood pressure 152 mm[Hg] ISAURA DEL ROSARIO [facility] 01-08-2022 13:52-0400 Body temperature 97.7 [degF] [facility] 01-08-2022 13:52-0400 Diastolic blood pressure 71 mm[Hg] [facility]olen Jr[facility] 01-08-2022 13:52-0400 Heart rate 67 /min [facility] 01-08-2022 13:52-0400 Mean blood pressure 99 mm[Hg] [facility]olen Jr[facility] 01-08-2022 13:52-0400 Systolic blood pressure 156 mm[Hg] [facility] Nolen Jr[facility] 01-08-2022 13:51-0400 Blood Pressure Location [facility]olen Jr[facility] 01-08-2022 13:51-0400 Diastolic blood pressure 69 mm[Hg] [facility]olen Jr[facility] 01-08-2022 13:51-0400 Heart rate 58 /min [facility]olen [facility] 01-08-2022 13:51-0400 Mean blood pressure 99 mm[Hg] [facility]olen Jr[facility] 01-08-2022 13:51-0400 Respiratory rate 16 /min [facility]olen [facility] 01-08-2022 13:51-0400 SaO2% (BldA) [Mass fraction] 97 % [facility]olen [facility] 01-08-2022 13:51-0400 Systolic blood pressure 158 mm[Hg] [facility]olen Jr[facility] 12-24-2021 09:48-0400 Blood Pressure Location [facility] 12-24-2021 09:48-0400 Diastolic blood pressure 84 mm[Hg] [facility]olen Jr[facility] 12-24-2021 09:48-0400 Heart rate 68 /min [facility] 12-24-2021 09:48-0400 Systolic blood pressure 139 mm[Hg] [facility] Nolen Jr[facility] 10-29-2021 15:12-0500 Body height 180.34 cm Zane Velasco Work Phone: [facility] 250 DO Work Phone: 10-29-2021 15:12-0500 Body mass index (BMI) [Ratio] 27.62 kg/m2 Zane Velasco Work Phone: [facility] 250 DO Work Phone: 10-29-2021 15:12-0500 Body surface area Derived from formula 2.1 m2 Zane Velasco Work Phone: [facility] DO Work Phone: 10-29-2021 15:12-0500 Body weight 89.81 kg Zane Velasco Work Phone: [facility] 250 DO Work Phone: 10-29-2021 15:12-0500 Diastolic blood pressure 66 mm[Hg] Zane Velasco Work Phone: [facility] 250 DO Work Phone: 10-29-2021 15:12-0500 Heart rate 64 /min Zane Velasco Work Phone: [facility] 250 DO Work Phone: 10-29-2021 15:12-0500 Systolic blood pressure 126 mm[Hg] Zane Velasco Work Phone: [facility] DO Work Phone: Encounters Encounter Date Encounter Type Care Provider Facility Start: 12-15-2024 ambulatory Nick Ricci ty:CD:[id number] Start: 12-08-2024 End: 12-08-2024 Office outpatient visit 25 minutes Sandra Rai MD Work Phone: [facility] Comment on above: Pre-operative cardio vascular examination (Primary Dx); Persistent atrial fibrillation (Multi); Essential hypertension; High coronary artery calcium score; Mixed hyperlipidemia; Former smoker; BMI 27.0-27.9,adult; Overweight Start: 12-08-2024 End: 12-08-2024 Patient encounter status Sandra Rai MD Work Phone: [facility] Work Phone: Start: 12-08-2024 End: 12-08-2024 ambulatory SANDRA Lamas [facility] Ambulatory Start: 12-08-2024 End: 12-08-2024 Encounter for preprocedural cardiovascular examination [facility] Ambulatory Start: 12-01-2024 End: 12-01-2024 Clinisync Result Encounter Generic External Data Provider [facility] External Department Unsolicited Start: 12-01-2024 End: 12-01-2024 Clinisync Result Encounter Generic External Data Provider [facility] External Department Unsolicited Start: 11-22-2024 End: 11-22-2024 Patient encounter procedure Zane Velasco DO Work Phone: [facility] [address] Work Phone: Start: 11-22-2024 End: 11-22-2024 ambulatory Zane Velasco DO Work Phone: [facility] Work Phone: Start: 11-21-2024 End: 11-21-2024 ambulatory Nick R LASHAY Facility:[facility] Start: 10-12-2024 End: 10-12-2024 Patient encounter procedure Zane Velasco DO Work Phone: [facility] [address] Work Phone: Start: 10-12-2024 End: 10-12-2024 ambulatory Zane Velasco DO Work Phone: [facility] Work Phone: Start: 10-11-2024 End: 10-11-2024 ambulatory [facility] Work Phone: Start: 10-11-2024 End: 10-11-2024 Patient encounter procedure [facility] Work Phone: Start: 10-04-2024 End: 10-04-2024 ambulatory ISAURA DEL ROSARIO Facility:[facility] Start: 10-04-2024 End: 10-04-2024 Patient encounter procedure [facility] DEL [facility] of [facility] [place] Start: 07-12-2024 End: 07-12-2024 Office outpatient visit 25 minutes Sandra Rai MD Work Phone: [facility] Comment on above: Persistent atrial fi brillation (Multi) (Primary Dx); Mixed hyperlipidemia; High coronary artery calcium score; Essential hypertension; BMI 27.0-27.9,adult; Former smoker; High risk medication use Start: 07-12-2024 End: 07-12-2024 ambulatory SANDRA Lamas [facility] Ambulatory Start: 03-08-2024 End: 03-08-2024 ambulatory DO Zane Velasco Work Phone: [facility] Work Phone: Start: 03-08-2024 End: 03-08-2024 Patient encounter procedure DO Zane Velasco Work Phone: [facility] Work Phone: Start: 02-23-2024 End: 02-23-2024 ambulatory ISAURA DEL ROSARIO Facility:[facility] Start: 02-23-2024 End: 02-23-2024 Patient encounter procedure ISAURA DEL ROSARIO [facility] Start: 02-15-2024 End: 02-15-2024 Patient encounter procedure DO Zane Velasco Work Phone: [facility] Start: 02-15-2024 End: 02-15-2024 ambulatory DO Zane Velasco Work Phone: [facility] Work Phone: Start: 11-26-2023 End: 11-26-2023 Office outpatient visit 25 minutes Sandra Rai MD Work Phone: [facility] Comment on above: Persistent atrial fi brillation (CMS/HCC) (Primary Dx); High coronary artery calcium score; Essential hypertension; Mixed hyperlipidemia; BMI 28.0-28.9,adult; Former smoker; High risk medication use Start: 05-21-2023 Office outpatient vi sit 25 minutes Zane Velasco Work Phone: [place] [address] DO Work Phone: Start: 05-21-2023 ambulatory Sandra Rai Facility : Start: 04-30-2023 End: 04-30-2023 ambulatory Ozzy Chan Other [facility] [employer] Other Start: 04-30-2023 Telephone encounter Adrienmicha Smith michelle [facility] Start: 04-13-2023 Rx Renewal Zane Saeed Velasco Work Phone: [facility] 250 DO Work Phone: Start: 02-24-2023 End: 02-24-2023 ambulatory Adrienmicha SmithDustin Other [facility] [employer] Other Start: 02-24-2023 Office outpatient vi sit 15 minutes Ozzy Chan [facility] Start: 01-05-2023 End: 01-07-2023 Evaluation and management of inpatient DO Zane Navarroer Work Phone: [facility] [place] [facility] Work Phone: Start: 12-23-2022 Rx Renewal Zane Saeed Krista Work Phone: [facility] 250 DO Work Phone: Start: 11-11-2022 ambulatory Sandra Abdulahim Facility :[id number] Start: 05-07-2022 Rx Renewal Zane Saeed Velasco Work Phone: [facility] 600 DO Work Phone: Start: 02-12-2022 End: 02-13-2022 ambulatory ISAURA DEL ROSARIO Facility:[facility] Start: 02-12-2022 End: 02-12-2022 Lab Drop off ISAURA DEL ROSARIO [facility] Start: 02-12-2022 End: 02-12-2022 Patient encounter procedure ISAURA DEL ROSARIO [facility] [place] Start: 02-10-2022 End: 02-11-2022 ambulatory ISAURA DEL ROSARIO Facility:[facility] Start: 01-08-2022 End: 01-08-2022 Patient encounter procedure Trinity Nolen Jr. [facility] Start: 2021 Rx Renewal Zane Velasco Work Phone: [facility] 250 DO Work Phone: Start: 12-24-2021 End: 12-24-2021 Patient encounter procedure Trinity Nolen Jr. [facility] Start: 12-23-2021 End: 12-24-[address] SILVERIO GUAJARDO Facility: Start: 10-29-2021 Office outpatient vi sit 25 minutes Zane Velasco Work Phone: [facility] 250 DO Work Phone: Procedures Date Procedure Procedure Detail Performing Clinician Start: 12-08-2024 Ecg routine ecg w/le ast 12 lds w/i&r Sandra Rai MD Work Phone: Start: 12-01-2024 ALL BASIC METABOLIC PANEL Generic External Data Provider Start: 11-22-2024 Supine abdominal X-ray Zane Velasco DO Work Phone: Start: 10-12-2024 CT of abdomen and pe lvis without contrast Zane Velasco DO Work Phone: Start: 07-12-2024 Ecg routine ecg w/le ast 12 phuong w/i&r Sandra Rai MD Work Phone: Start: 02-15-2024 Diagnostic radiograp hy of abdomen DO Zane Vealsco Work Phone: Start: 11-26-2023 Ecg routine ecg w/le ast 12 lds w/i&r Sandra Rai MD Work Phone: Start: 01-05-2023 Aerobic microbial culture DO Zane Velasco Work Phone: Start: 01-05-2023 Investigation of transfusion reaction DO Zane Velasco Work Phone: Start: 01-05-2023 SARS-CoV-2, Influenz a & RSV (PCR) DO Zane Velasco Work Phone: Start: 01-05-2023 Plain chest X-ray DO Tegan Velasco Work Phone: Start: 02-12-2022 PSA screening ISAURA DEL ROSARIO Comment on above: Performed By: #### P SAD #### [facility] [address] [place] [address] Dr. Emiliana Wood Start: 01-16-2022 Fluoroscopy guided extracorporeal shockwave lithotripsy of calculus of left kidney ISAURA DEL ROSARIO Amputation of toe Zane wells Work Phone: Amputation of toe Trinity Bridgett andrade Jr. Cataract (morphologi c abnormality) Trinity Nolen Jr. Cataract surgery Zane muse Work Phone: Colonoscopy Trinity Hopper Extracorporeal shock wave lithotripsy of calculus of kidney Trinitymarylin Nolen Jr. Lithotripsy Zane Velasco Work Phone: Total colonoscopy Zane wells Work Phone: Plan of Treatment Date Care Activity Detail Author Start: 08-11-2025 End: 08-11-2025 Patient encounter procedure 08/11/2025 1:40 PM EST Office Visit [facility] [address] [phone] Sandra Rai MD [address] [facility] 2, [place] [address] [place] [address] [facility] Start: 05-01-2025 Influenza vaccination Influenza Vaccine (Season Ended) [facility] Start: 02-23-2025 End: 02-23-2025 Patient encounter procedure 02/23/2025 11:20 AM EDT Office Visit [facility] [address] [address] Sandra Rai MD 702 [facility] 2, [place] [address] [place] [address] [facility] Start: 07-12-2024 End: 07-12-2025 Alanine aminotransferase [Enzymatic activity/volume] in Serum or Plasma by With P-5'-P Alanine Aminotransferase Lab Routine Mixed hyperlipidemia Expected: 07/12/2024 (Approximate), Expires: 07/12/[address] [facility] Work Phone: Comment on above: Expected: 07/12/2024 (Approximate), Expi res: 07/12/2025 Start: 07-12-2024 End: 07-12-2025 Aspartate aminotransferase [Enzymatic activity/volume] in Serum or Plasma by With P-5'-P Aspartate Aminotransferase Lab Routine Mixed hyperlipidemia Expected: 07/12/2024 (Approximate), Expires: 07/12/2025 [facility] Work Phone: Comment on above: Expected: 07/12/2024 (Approximate), Expi res: 07/12/2025 Start: 07-12-2024 End: 07-12-2025 Basic metabolic 2000 panel - Serum or Plasma Basic Metabolic Panel Lab Routine Essential hypertension Expected: 07/12/2024 (Approximate), Expires: 07/12/[address] [facility] Work Phone: Comment on above: Expected: 07/12/2024 (Approximate), Expi res: 07/12/2025 Start: 07-12-2024 End: 07-12-2025 CBC panel - Blood by Automated count CBC Lab Routine Persistent atrial fibrillation (Multi) Essential hypertension Expected: 07/12/2024 (Approximate), Expires: 07/12/[address] [facility] Work Phone: Comment on above: Expected: 07/12/2024 (Approximate), Expi res: 07/12/2025 Start: 07-12-2024 End: 07-12-2025 Lipid 1996 panel - Serum or Plasma Lipid Panel Lab Routine Mixed hyperlipidemia Expected: 07/12/2024 (Approximate), Expires: 07/12/[address] [facility] Work Phone: Comment on above: Expected: 07/12/2024 (Approximate), Expi res: 07/12/2025 Start: 06-08-2024 End: 06-08-2024 Patient encounter procedure 06/08/2024 10:30 AM EDT Office Visit [facility] [address] [facility] [place] [address] [place] [address] Sandra Rai MD [address] [facility] [address], [place] [address] [place] [address] [facility] Start: 05-01-2024 COVID-19 Vaccine ( season) COVID-19 Vaccine ( season) [facility] Start: 05-01-2024 Influenza vaccination Influenza Vaccine (#1) [facility] Start: 01-14-2024 Medicare Annual Wellness Visit Medicare Annual Wellness Visit (AWV) [facility] Start: 12-31-2023 RSV High Risk: (Elderly (60+) or Population) (1 - 1-dose 75+ series) RSV High Risk: (Elderly (60+) or Population) (1 - 1-dose 75+ series) [facility] Start: 05-21-2023 FUV, Provider: Sandra Rai, Status: Jose, Time: 11:10 AM FUV, Provider: Sandra Rai, Status: Jose, Time: 11:10 AM [facility] 250 DO Work Phone: Start: 05-01-2023 COVID-19 Vaccine ( season) COVID-19 Vaccine ( season) [facility] Start: 05-01-2023 Influenza vaccination Influenza Vaccine (#1) [facility] Start: 01-07-2023 [facility] Start: 01-05-2023 Consultation [facility] Start: 01-05-2023 Hospital admission [facility] Start: 11-11-2022 FUV, Provider: Sandra Rai, Status: Pen, Time: 10:50 AM FUV, Provider: Sandra Rai, Status: Pen, Time: 10:50 AM [facility] 600 DO Work Phone: Start: 05-14-2022 FUV, Provider: Sandra Rai, Status: Pen, Time: 11:20 AM FUV, Provider: Sandra Rai, Status: Pen, Time: 11:20 AM [facility] 250 DO Work Phone: Start: 2013 Abdominal aortic aneurysm screening Abdominal Aortic Aneurysm (AAA) Screening [facility] Start: 1998 Zoster Vaccines (1 of 2) Zoster Vaccines (1 of 2) [facility] Start: 1970 DTaP/Tdap/Td Vaccines (1 - Tdap) DTaP/Tdap/Td Vaccines (1 - Tdap) [facility] Start: 1966 Diabetes mellitus screening Diabetes Screening [facility] Start: 1966 Hepatitis C screening Hepatitis C Screening [facility] Start: 1948 Lipid panel Lipid Panel [facility] Start: 1948 Medicare Annual Wellness Visit Medicare Annual Wellness Visit (AWV) [facility] Start: 1948 Screening for malignant neoplasm of colon [facility] Patient Education Azithromycin ( Systemic) Acute Bronchitis, Adult (DC) Respiratory Distress Syndrome, Adult (DC) Cefdinir Prednisone [facility] Work Phone: Patient referral [facility] Work Phone: Immunizations Immunization Date Immunization Notes Care Provider Fa cilitiffanie 01-08-2021 Moderna COVID-19 Vaccine 100 MCG/0.5ML Intramuscular Suspension Zane Velasco Work Phone: [facility] 250 DO Work Phone: 01-08-2021 SARS-CoV-2 (COVID-19 ) Ad26 vaccine, recombinant Trinity Nolen Jr. [facility] 12-11-2020 Moderna COVID-19 Vaccine 100 MCG/0.5ML Intramuscular Suspension Zane Saeed Krista Work Phone: [facility] 12-01-2020 SARS-CoV-2 (COVID-19 ) Ad26 vaccine, recombinant Trinity Callum Mcgovern [facility] 08-31-2017 pneumococcal polysaccharide vaccine, 23 valent Azne Saeed Krista Work Phone: [place] [address] DO Work Phone: 04-21-2017 pneumococcal polysaccharide vaccine, 23 valankur Zane Velasco Work Phone: [facility] 250 DO Work Phone: 08-31-2016 pneumococcal conjuga te vaccine, 13 valent Zane Velasco Work Phone: [place] [address] DO Work Phone: 04-08-2016 pneumococcal conjuga te vaccine, 13 valankur Velasco Work Phone: [place] [address] DO Work Phone: NEGATED: Highlighted row has not occurred!02-12-2022 influenza virus vaccine, unspecified formulation ISAURA MIGUEL ÁNGEL [facility] Payers Date Payer Category Payer Self-pay [id number] 2022 Medicare supplementa l policy (as second payer) AAR [id number] 2022 Unknown 2015 Medicare [id number] 1959 Medicare [id number] 1959 Unknown [id number] 1948 Unknown [id number]. 2.593 1948 Unknown [id number] [id number]. 2.593 1948 Unknown [id number] [id number]. 2.593 1948 Unknown [id number] [id number]. 2.356 1948 Unknown [id number] [id number]. 2.356 1948 Unknown [id number] [id number]. 2.727 1948 Unknown [id number] [id number]. 2.727 1948 Unknown [id number] [id number]. 2.727 1948 Unknown [id number] [id number]. 2.1244 1948 Unknown [id number] [id number]. 2.1244 Unknown [id number] [id number]. 2.531 Unknown [id number] [id number]. 2.531 Unknown [id number]. 2.531 Social History Date Type Detail Facility Start: 11-26-2023 End: 07-12-2024 Alcohol use Alcohol use -[facility] 250 DO Work Phone: Comment on above: 1cup of coffee daily ; 2x yearly; 1x yearly; Start: 12-24-2021 End: 12-08-2024 Tobacco smoking status Ex-smoker (finding) [facility] Start: 11-26-2023 End: 07-12-2024 Sex Assigned At Male [facility] Start: 01-05-2023 End: 02-15-2024 Tobacco smoking status NHIS Never smoked tobacco (finding) [facility] Start: 1950 Sex Assigned At Male [facility] End: 08-31-1983 History of tobacco use Current smoker [facility] Work Phone: End: 08-31-1983 History of tobacco use Cigarette Smoker [facility] Work Phone: Start: 11-26-2023 End: 12-08-2024 Tobacco use and exposure Smokeless tobacco non-user [facility] Work Phone: Start: 11-26-2023 End: 12-08-2024 Alcohol intake Lifetime non-drinker (finding) [facility] Work Phone: Start: 1950 Sex Assigned At Not on file [facility] Work Phone: Start: 11-16-2023 End: 12-08-2024 Exposure to SARS-CoV-2 (event) Not sure [facility] Tobacco smoking status Never [facility] Start: 10-11-2024 End: 11-23-2024 Sex Male (finding) [facility] Tobacco smoking status NHIS Tobacco smoking consumption unknown [facility] Goals Date Patient Goal Desired Activity /State Functional Status Date Assessment Result Facility 10-04-2024 Functional Status N/A [facility] 02-23-2024 Functional Status N/A [facility] 01-07-2023 Functional status Patient at Baseline [facility] Work Phone: 02-12-2022 Functional Status N/A [facility] Mental Status Date Assessment Result Facility 01-07-2023 Cognitive function Cognitive Sta tus Patient at Baseline [facility] Work Phone: Clinical Notes 12-24-2021 to 12-08-2024 Sandra Rai MD - 12/08/2024 11:30 AM EDTPatient Instructions Note Date & Type Note Facility 12-08-2024 History of Present illness Narrative Chief Complaint Patient presents with Pre-op Clearance [id number] 12/15/24 Subjective Lexi Torres is a 73 y.o. male HPI Patient is in the office prematurely for cardiac clearance prior to lithotripsy for kidney stone scheduled next week. The patient remains in normal sinus rhythm as was confirmed by his EKG today. He is on dofetilide and Xarelto. His hypertension is under control. His weight is unchanged from previously in the overweight range. Currently he does not have hematuria or pain. Review of system was essentially unremarkable and examination was unremarkable for overweight. Assessment/recommendations: 1-persistent atrial fibrillation status post cardioversion October 2019, currently in sinus rhythm on dofetilide and long-term anticoagulation with Xarelto with no breakthrough events. Present medical therapy will left unchanged 2-essential hypertension currently under control on beta theodora and amlodipine/valsartan 3-overweight, encouraged patience diet control 4-patient need cardiac clearance prior to lithotripsy, he will be advised to stop Xarelto 3 days prior to the procedure and resume it whenever it is safe to do so based on the absence of hematuria. 5-high-risk medication with antiarrhythmic and anticoagulants, no toxicity 6-elevated coronary calcium score over 1000, stress test 2020 was normal. 7-hyperlipidemia on statin therapy. Review of Systems All other systems reviewed and are negative. Vitals: 12/08/24 1135 BP: 122/62 BP Location: Right arm Patient Position: Sitting Pulse: 76 Weight: 88.1 kg (194 lb 3.2 oz) Height: 1.803 m (5' 11 ) EKG done in office today Objective Physical Exam Constitutional: Appearance: Normal appearance. HENT: Nose: Nose normal. Neck: Vascular: No carotid bruit. Cardiovascular: Rate and Rhythm: Normal rate. Pulses: Normal pulses. Heart sounds: Normal heart sounds. Pulmonary: Effort: Pulmonary effort is normal. Abdominal: General: Bowel sounds are normal. Palpations: Abdomen is soft. Musculoskeletal: General: Normal range of motion. Cervical back: Normal range of motion. Right lower leg: No edema. Left lower leg: No edema. Skin: General: Skin is warm and dry. Neurological: General: No focal deficit present. Mental Status: He is alert. Psychiatric: Mood and Affect: Mood normal. Behavior: Behavior normal. Thought Content: Thought content normal. Judgment: Judgment normal. Allergies Patient has no known allergies. Current Medications Current Outpatient Medications: albuterol 90 mcg/actuation inhaler, Inhale 2 puffs every 6 hours if needed., Disp: , Rfl: amlodipine-valsartan (Exforge) 10-160 mg tablet, Take 1 tablet by mouth once daily., Disp: 90 tablet, Rfl: 3 atorvastatin (Lipitor) 20 mg tablet, Take 1 tablet (20 mg) by mouth once daily at bedtime., Disp: 90 tablet, Rfl: 3 budesonide-formoteroL (Symbicort) 160-4.5 mcg/actuation inhaler, Use as directed, Disp: , Rfl: dofetilide (Tikosyn) 250 mcg capsule, Take 1 capsule (250 mcg) by mouth 2 times a day., Disp: 180 capsule, Rfl: 3 metoprolol succinate XL (Toprol-XL) 50 mg 24 hr tablet, TAKE 1 TABLET BY MOUTH ONCE DAILY, Disp: 90 tablet, Rfl: 3 tamsulosin (Flomax) 0.4 mg 24 hr capsule, Take 1 capsule (0.4 mg) by mouth once daily., Disp: , Rfl: Xarelto 20 mg tablet, Take 1 tablet (20 mg) by mouth once daily., Disp: 90 tablet, Rfl: 3 Assessment/Plan 1. Pre-operative cardiovascular examination ECG 12 Lead 2. Persistent atrial fibrillation (Multi) ECG 12 Lead 3. Essential hypertension 4. High coronary artery calcium score 5. Mixed hyperlipidemia 6. Former smoker 7. BMI 27.0-27.9,adult 8. Overweight Scribe Attestation By signing my name below, I, Catalina Lugo LPN , Scribe attest that this documentation has been prepared under the direction and in the presence of Sandra Rai MD. Provider Attestation - Scribe documentation All medical record entries made by the Scribe were at my direction and personally dictated by me. I have reviewed the chart and agree that the record accurately reflects my personal performance of the history, physical exam, discussion and plan. documented in this encounter [facility] Work Phone: 12-08-2024 Instructions Catalina Penn LPN - 12/08/2024 11:30 AM EDT Please bring all medicines, vitamins, and herbal supplements with you when you come to the office. Prescriptions will not be filled unless you are compliant with your follow up appointments or have a follow up appointment scheduled as per instruction of your physician. Refills should be requested at the time of your visit. Lexi Torres is clear for surgery from a cardiac standpoint BMI was above normal measurement. Current weight: 88.1 kg (194 lb 3.2 oz) Weight change since last visit (-) denotes wt loss 0.2 lbs Weight loss needed to achieve BMI 25: 15.3 Lbs Weight loss needed to achieve BMI 30: -20.4 Lbs Provided instructions on dietary changes Provided instructions on exercise. Follow up 8 months documented in this encounter [facility] Work Phone: 11-21-2024 Note Patient Education Nephrology Laser Therapy for Kidney Stones Laser therapy for kidney stones is a procedure to break up rock-like masses that form inside the kidneys (kidney stones). It is done using a device that beams a strong light (laser) on the kidney stones. This breaks the stones up into small pieces. These small pieces may leave your body when you pee (urinate) or may be taken out during the procedure. You may need laser therapy if you have kidney stones that are painful or that are stopping you from being able to pee. Tell a health care provider about: ??? Any allergies you have. ??? All medicines you are taking, including vitamins, herbs, eye drops, creams, and jaqw-boi-diruaxp medicines. ??? Any problems you or family members have had with anesthesia. ??? Any bleeding problems you have. ??? Any surgeries you have had. ??? Any medical conditions you have. ??? Whether you are or may be . What are the risks? Your health care provider will talk with you about risks. These may include: ??? Infection. ??? Bleeding. ??? Allergic reactions to medicines. ??? Damage to: ? The part of your body that drains pee (urine) from the bladder (urethra). ? The bladder. ? The tube that connects the bladder to the kidneys (ureter). ??? Urinary tract infection (UTI). ??? Urethral stricture. This is when the urethra is narrowed by scarring. ??? Trouble peeing. ??? Blockage of the kidney. This may be caused by a piece of kidney stone. What happens before the procedure? When to stop eating and drinking Follow instructions from your provider about what you may eat and drink. These may include: ??? 8 hours before the procedure ? Stop eating most foods. Do not eat meat, fried foods, or fatty foods. ? Eat only light foods, such as toast or crackers. ? All liquids are okay except energy drinks and alcohol. ??? 6 hours before the procedure ? Stop eating. ? Drink only clear liquids, such as water, clear fruit juice, black coffee, plain tea, and sports drinks. ? Do not drink energy drinks or alcohol. ??? 2 hours before the procedure ? Stop drinking all liquids. ? You may be allowed to take medicines with small sips of water. ??? If you do not follow your provider's instructions, your procedure may be delayed or canceled. Medicines ??? Ask your provider about: ? Changing or stopping your regular medicines. These include any diabetes medicines or blood thinners you take. ? Taking medicines such as aspirin and ibuprofen. These medicines can thin your blood. Do not take them unless your provider tells you to. ? Taking zuun-kaj-boahisd medicines, vitamins, herbs, and supplements. Tests ??? You may have a physical exam before the procedure. You may also have tests done. These may include: ? Imaging tests. ? Blood or pee tests. Surgery safety ??? Ask your provider: ? How your surgery site will be marked. ? What steps will be taken to help prevent infection. These steps may include: ? Removing hair at the surgery site. ? Washing skin with a soap that kills germs. ? Taking antibiotics. General instructions ??? Do not use any products that contain nicotine or tobacco for at least 4 weeks before the procedure. These products include cigarettes, chewing tobacco, and vaping devices, such as e-cigarettes. If you need help quitting, ask your provider. ??? If you will be going home right after the procedure, plan to have a responsible adult: ? Take you home from the hospital or clinic. You will not be allowed to drive. ? Care for you for the time you are told. What happens during the procedure? An IV will be inserted into one of your veins. ??? You will be given: ? A sedative. This helps you relax. ? Anesthesia. This keeps you from feeling pain. It will make you fall asleep for surgery. ??? A tool with a camera on the end (ureteroscope) will be put into your urethra. It will be moved through your bladder to your kidney. It will send pictures to a screen in the operating room. This will show what parts of your kidney need to be treated. ??? A tube will be put through the ureteroscope. It will be moved into your kidney. ??? The laser device will be put into your kidney through the tube. The laser will be used to break up the kidney stones. ??? A tool with a tiny wire basket may be put through the tube into your kidney. This can help remove the small pieces of the kidney stone. ??? A small mesh tube (stent) may be placed to allow your kidney to drain. ??? The tube and ureteroscope will be taken out at the end of the surgery. The procedure may vary among providers and hospitals. What happens after the procedure? Your blood pressure, heart rate, breathing rate, and blood oxygen level will be monitored until you leave the hospital or clinic. ??? If you had a stent placed, it may have a string that will be secured to your skin. This helps yo (more content not included)... [facility] 10-12-2024 Radiology Diagnostic study note [facility] [address] CT Scan Report Signed Patient: Santhosh Torres MR#: [id number] : 1950 Acct:[id number] Age/Sex: 73 / M ADM Date: 5 Loc: [facility] Room: Type: [facility] Attending Dr: Isaura Del Rosario PA-C Copies to: Isaura Del Rosario PA-C~ Ordering Provider: Isaura Del Rosario PA-C Date of Service: 10/12/24 CT/CT abdomen pelvis wo con: N20.0 CT ABDOMEN AND PELVIS WITHOUT INTRAVENOUS CONTRAST: CLINICAL HISTORY: Kidney stones abdominal pain and hematuria. COMPARISON: None TECHNIQUE: Spiral images were obtained through the abdomen and pelvis without intravenous contrast. This CT exam was performed using one or more following dose reduction techniques: Automated exposure control, adjustment of the mA and/or kV according to patient size, or use of iterative reconstruction technique. FINDINGS: Lung Bases: [Bibasilar scarring.] Organs:Suboptimal evaluation due to lack of IV contrast. Liver gallbladder spleen pancreas and adrenal glands appear unremarkable. Kidneys demonstrate punctate stones involving the kidneys. 5 mm left ureteral calculus at the pelvic brim causing no significant hydronephrosis or hydroureter. Moderate calcification of the aorta without aneurysm. GI: Stomach is grossly unremarkable. Small bowel appears nondilated. Colonic diverticulosis.[Appendix is normal. Pelvis:[Bilateral fat filled inguinal hernias. Urinary bladder and prostate gland appear unremarkable. Peritoneum/Retroperitoneum:No free air, free fluid or lymphadenopathy.[ Abd wall/Bones:Abdominal wall demonstrates no acute findings. Osseous structures demonstrate degenerative change.[ CT/CT abdomen pelvis wo con IMPRESSION: Punctate bilateral nephrolithiasis. 5 mm left ureteral calculus at the level of the pelvic brim causing no significant hydronephrosis or hydroureter. Colonic diverticulosis. Impression dictated by: Riccardo Giron Jr., DRuchiORuchi10/12/2024 2:38 PM Dictation Location: [id number]-[id number] Transcribed By: [facility] 10/12/24 1438 Dictated By: Riccardo Giron Jr, DO 10/12/24 1432 Signed By: 10/12/24 1438 [facility] 10-11-2024 Evaluation note Diagnosis Onset Date Resolution COPD (chronic obstructive pulmonary disease) acute October 11, 025 1:16pm [facility] Work Phone: 1([phone]) 385-456802-04-2025 Hospital Discharge instructions Patient Education 10/04/2024 13:04:10 Kidney Stones, Rxpj-qd-Qwzm Kidney Stones Kidney stones are rock-like masses that form inside of the kidneys. Kidneys are organs that make pee (urine). A kidney stone may move into other parts of the urinary tract, including: The tubes that connect the kidneys to the bladder (ureters). The bladder. The tube that carries urine out of the body (urethra). Kidney stones can cause very bad pain and can block the flow of pee. The stone usually leaves your body through your pee. A doctor may need to take out the stone. What are the causes? Kidney stones may be caused by: Too much calcium in the body. This may be caused by too much parathyroid hormone in the blood. Uric acid crystals in the bladder. The body makes uric acid when you eat certain foods. Narrowing of one or both of the ureters. A kidney blockage that you were born with. Past surgery on the kidney or the ureters. What increases the risk? You are more likely to develop this condition if: You have had a kidney stone in the past. Other people in your family have had kidney stones. You do not drink enough water. You eat a diet that is high in protein, salt (sodium), or sugar. You are very overweight (obese). What are the signs or symptoms? Symptoms of a kidney stone may include: Pain in the side of the belly, right below the ribs. Pain usually spreads to the groin. Needing to pee often or right away. Pain when peeing. Blood in your pee. Feeling like you may vomit (nauseous). Vomiting. Fever and chills. How is this treated? Treatment depends on the size, location, and makeup of the kidney stones. The stones will often pass out of the body when you pee. You may need to: Drink more fluid to help pass the stone. ?In some cases, you may be given fluids through an IV tube at the hospital. Take medicine for pain. Change your diet to help keep kidney stones from coming back. Sometimes, you may need: A procedure to break up kidney stones using a beam of light (laser) or shock waves. Surgery to remove the kidney stones. Follow these instructions at home: Medicines Take omhb-ghc-bkyoapf and prescription medicines only as told by your doctor. Ask your doctor if the medicine prescribed to you requires you to avoid driving or using machinery. Eating and drinking Drink enough fluid to keep your pee pale yellow. ?You may be told to drink at least 8 10 glasses of water each day. This will help you pass the stone. If told by your doctor, change your diet. You may be told to: ?Limit how much salt you eat. ?Eat more fruits and vegetables. ?Limit how much meat, poultry, fish, and eggs you eat. Follow instructions from your doctor about what you may eat and drink. General instructions Collect pee samples as told by your doctor. You may need to collect a pee sample: ?24 hours after a stone comes out. ?8 12 weeks after a stone comes out, and every 6 12 months after that. Strain your pee every time you pee. Use the strainer that your doctor recommends. Do not throw out the stone. Keep it so that it can be tested by your doctor. Keep all follow-up visits. You may need X-rays and ultrasounds to make sure the stone has come out. How is this prevented? To prevent another kidney stone: Drink enough fluid to keep your pee pale yellow. This is the best way to prevent kidney stones. Eat healthy foods. Avoid certain foods as told by your doctor. You may be told to eat less protein. Stay at a healthy weight. Where to find more information National Kidney Foundation (NKF): kidney.org Urology Care Foundation (UCF): urologyhealth.org Contact a doctor if: You have pain that gets worse or does not get better with medicine. Get help right away if: You have a fever or chills. You get very bad pain. You get new pain in your belly. You faint. You cannot pee. This information is not intended to replace advice given to you by your health care provider. Make sure you discuss any questions you have with your health care provider. Document Revised: 04/10/2023 Document Reviewed: 04/10/2023 [employer] Patient Education 2023 [employer]. Follow Up Care 10/03/2024 09:38:58 With:Keep previously scheduled follow-up appointment. Address: When: Unknown [facility] 02-04-2025 NotePatient Education Urology Kidney Stones Kidney stones are rock-like masses that form inside of the kidneys. Kidneys are organs that make pee (urine). A kidney stone may move into other parts of the urinary tract, including: ??? The tubes that connect the kidneys to the bladder (ureters). ??? The bladder. ??? The tube that carries urine out of the body (urethra). Kidney stones can cause very bad pain and can block the flow of pee. The stone usually leaves your body through your pee. A doctor may need to take out the stone. What are the causes? Kidney stones may be caused by: ??? Too much calcium in the body. This may be caused by too much parathyroid hormone in the blood. ??? Uric acid crystals in the bladder. The body makes uric acid when you eat certain foods. ??? Narrowing of one or both of the ureters. ??? A kidney blockage that you were born with. ??? Past surgery on the kidney or the ureters. What increases the risk? You are more likely to develop this condition if: ??? You have had a kidney stone in the past. ??? Other people in your family have had kidney stones. ??? You do not drink enough water. ??? You eat a diet that is high in protein, salt (sodium), or sugar. ??? You are very overweight (obese). What are the signs or symptoms? Symptoms of a kidney stone may include: ??? Pain in the side of the belly, right below the ribs. Pain usually spreads to the groin. ??? Needing to pee often or right away. ??? Pain when peeing. ??? Blood in your pee. ??? Feeling like you may vomit (nauseous). ??? Vomiting. ??? Fever and chills. How is this treated? Treatment depends on the size, location, and makeup of the kidney stones. The stones will often pass out of the body when you pee. You may need to: ??? Drink more fluid to help pass the stone. ? In some cases, you may be given fluids through an IV tube at the hospital. ??? Take medicine for pain. ??? Change your diet to help keep kidney stones from coming back. Sometimes, you may need: ??? A procedure to break up kidney stones using a beam of light (laser) or shock waves. ??? Surgery to remove the kidney stones. Follow these instructions at home: Medicines ??? Take stmm-htx-wiqsuoa and prescription medicines only as told by your doctor. ??? Ask your doctor if the medicine prescribed to you requires you to avoid driving or using machinery. Eating and drinking ??? Drink enough fluid to keep your pee pale yellow. ? You may be told to drink at least 8?10 glasses of water each day. This will help you pass the stone. ??? If told by your doctor, change your diet. You may be told to: ? Limit how much salt you eat. ? Eat more fruits and vegetables. ? Limit how much meat, poultry, fish, and eggs you eat. ??? Follow instructions from your doctor about what you may eat and drink. General instructions ??? Collect pee samples as told by your doctor. You may need to collect a pee sample: ? 24 hours after a stone comes out. ? 8?12 weeks after a stone comes out, and every 6?12 months after that. ??? Strain your pee every time you pee. Use the strainer that your doctor recommends. ??? Do not throw out the stone. Keep it so that it can be tested by your doctor. ??? Keep all follow-up visits. You may need X-rays and ultrasounds to make sure the stone has come out. How is this prevented? To prevent another kidney stone: ??? Drink enough fluid to keep your pee pale yellow. This is the best way to prevent kidney stones. ??? Eat healthy foods. ??? Avoid certain foods as told by your doctor. You may be told to eat less protein. ??? Stay at a healthy weight. Where to find more information ??? National Kidney Foundation (NKF): kidney.org ??? Urology Care Foundation (UCF): urologyhealth.org Contact a doctor if: ??? You have pain that gets worse or does not get better with medicine. Get help right away if: ??? You have a fever or chills. ??? You get very bad pain. ??? You get new pain in your belly. ??? You faint. ??? You cannot pee. This information is not intended to replace advice given to you by your health care provider. Make sure you discuss any questions you have with your health care provider. Document Revised: 04/10/2023 Document Reviewed: 04/10/2023 [employer] Patient Education ? 2023 [employer] 07-12-2024 History of Present illness Narrative* Sandra Rai MD - 07/12/2024 10:40 AM EST Subjective Lexi Torres is a 73 y.o. male Chief Complaint Follow-up HPI Patient is in the office for follow-up for the problems noted below. He has had no recurrent atrialfibrillation while he is currently on dofetilide and long- term anticoagulation with Xarelto. He maintains active lifestyle he noted to lose more weight but has remained nevertheless active in his lifestyle. His EKG revealed normal sinus rhythm with sinus bradycardia heart rate 53 bpm he has right bundle branch block. The patient has not had blood work done recently therefore we requested doing CBC, basic metabolic profile and lipid profile. Assessment/recommendations: 1-persistent atrial fibrillation status post cardioversion October 2019, currently in sinus rhythmon dofetilide and long-term anticoagulation with Xarelto with no breakthrough events. Present medical therapy will left unchanged 2-essential hypertension currently under control on beta theodora and amlodipine/valsartan 3-overweight, encouraged patience diet control 4-sinus bradycardia with right bundle branch block, currently inconsequential and asymptomatic 5-high-risk medication with antiarrhythmic and anticoagulants, no toxicity 6-elevated coronary calcium score over 1000, stress test 2020 was normal. Presently on aspirin and statin. 7-hyperlipidemia on statin therapy. Lipid profile is ordered inconsequential Review of Systems All other systems reviewed and are negative. Vitals: 07/12/24 1040 BP: 138/62 BP Location: Left arm Patient Position: Sitting Pulse: 53 Weight: 88 kg (194 lb) Height: 1.803 m (5' 11 ) Objective Physical Exam Constitutional: Appearance: Normal appearance. HENT: Nose: Nose normal. Neck: Vascular: No carotid bruit. Cardiovascular: Rate and Rhythm: Normal rate. Pulses: Normal pulses. Heart sounds: Normal heart sounds. Pulmonary: Effort: Pulmonary effort is normal. Abdominal: General: Bowel sounds are normal. Palpations: Abdomen is soft. Musculoskeletal: General: Normal range of motion. Cervical back: Normal range of motion. Right lower leg: No edema. Left lower leg: No edema. Skin: General: Skin is warm and dry. Neurological: General: No focal deficit present. Mental Status: He is alert. Psychiatric: Mood and Affect: Mood normal. Behavior: Behavior normal. Thought Content: Thought content normal. Judgment: Judgment normal. Allergies Patient has no known allergies. Current Medications Current Outpatient Medications: albuterol 90 mcg/actuation inhaler, Inhale 2 puffs every 6 hours if needed., Disp: , Rfl: amlodipine-valsartan (Exforge) 10-160 mg tablet, TAKE 1 TABLET DAILY., Disp: 90 tablet, Rfl: 0 aspirin 81 mg EC tablet, Take 1 tablet (81 mg) by mouth 2 times a week., Disp: , Rfl: atorvastatin (Lipitor) 20 mg tablet, Take 1 tablet (20 mg) by mouth once daily at bedtime., Disp: 90 tablet, Rfl: 3 budesonide-formoteroL (Symbicort) 160-4.5 mcg/actuation inhaler, Use as directed, Disp: , Rfl: dofetilide (Tikosyn) 250 mcg capsule, Take 1 capsule (250 mcg) by mouth 2 times a day., Disp: 180 capsule, Rfl: 3 metoprolol succinate XL (Toprol-XL) 50 mg 24 hr tablet, Take 1 tablet (50 mg) by mouth once daily.,Disp: 90 tablet, Rfl: 3 Xarelto 20 mg tablet, Take 1 tablet (20 mg) by mouth once daily., Disp: 90 tablet, Rfl: 3 Assessment/Plan 1. Persistent atrial fibrillation (Multi) Follow Up In Cardiology 2. Mixed hyperlipidemia 3. High coronary artery calcium score 4. Essential hypertension 5. BMI 27.0-27.9,adult 6. Former smoker Scribe Attestation By signing my name below, I, Maria Fernanda Reich LPN , [employer] attest that this documentation has been prepared under the direction and in the presence of Sandra Rai MD. Provider Attestation - Scribe documentation All medical record entries made by the Scribe were at my direction and personally dictated by me. Ihave reviewed the chart and agree that the record accurately reflects my personal performance of the history, physical exam, discussion and plan. documented in this [facility] Work Phone: 1(174) 363-194811-12-2024 Instructions* Patient Instructions* Maria Fernanda Mcclure LPN - 07/12/2024 10:40 AM EST Please bring all medicines, vitamins, and herbal supplements with you when you come to the office. Prescriptions will not be filled unless you are compliant with your follow up appointments or have a follow up appointment scheduled as per instruction of your physician. Refills should be requested at the time of your visit. BMI was above normal measurement. Current weight: 88 kg (194 lb) Weight change since last visit (-) denotes wt loss -8 lbs Weight loss needed to achieve BMI 25: 15.1 Lbs Weight loss needed to achieve BMI 30: -20.6 Lbs Provided instructions on dietary changes Provided instructions on exercise. * Attachments The following attachments cannot be sent through Care Everywhere. * Heart Healthy Diet (Ukrainian) documented in this [facility] Work Phone: 1(191) 253-965506-25-2024 Hospital Discharge instructions Patient Education 02/23/2024 13:28:02 Dietary Guidelines to Help Prevent Kidney Stones Dietary Guidelines to Help Prevent Kidney Stones Kidney stones are deposits of minerals and salts that form inside your kidneys. Your risk of developing kidney stones may be greater depending on your diet, your lifestyle, the medicines you take, and whether you have certain medical conditions. Most people can lower their risks of developing kidney stones by following these dietary guidelines. Your dietitian may give you more specific instructions depending on your overall health and the type of kidney stones you tend to develop. What are tips for following this plan? Reading food labels Choose foods with no salt added or low-salt labels. Limit your salt (sodium) intake to less than 1,500 mg a day. Choose foods with calcium for each meal and snack. Try to eat about 300 mg of calcium at each meal.Foods that contain 200 500 mg of calcium a serving include: ?8 oz (237 mL) of milk, hcpcqha-uhefrcoikizo-znsvj milk, and calcium- fortifiedfruit juice. Calcium-fortified means that calcium has been added to these drinks. ?8 oz (237 mL) of kefir, yogurt, and soy yogurt. ?4 oz (114 g) of tofu. ?1 oz (28 g) of cheese. ?1 cup (150 g) of dried figs. ?1 cup (91 g) of cooked broccoli. ?One 3 oz (85 g) can of sardines or mackerel. Most people need 1,000 1,500 mg of calcium a day. Talk to your dietitian about how much calcium is recommended for you. Shopping Buy plenty of fresh fruits and vegetables. Most people do not need to avoid fruits and vegetables, even if these foods contain nutrients that may contribute to kidney stones. When shopping for convenience foods, choose: ?Whole pieces of fruit. ?Pre-made salads with dressing on the side. ?Low-fat fruit and yogurt smoothies. Avoid buying frozen meals or prepared deli foods. These can be high in sodium. Look for foods with live cultures, such as yogurt and kefir. Choose high-fiber grains, such as whole-wheat breads, oat bran, and wheat cereals. Cooking Do not add salt to food when cooking. Place a salt shaker on the table and allow each person to addtheir own salt to taste. Use vegetable protein, such as beans, textured vegetable protein (TVP), or tofu, instead of meat inpasta, casseroles, and soups. Meal planning Eat less salt, if told by your dietitian. To do this: ?Avoid eating processed or pre-made food. ?Avoid eating fast food. Eat less animal protein, including cheese, meat, poultry, or fish, if told by your dietitian. To dothis: ?Limit the number of times you have meat, poultry, fish, or cheese each week. Eat a diet free of meat at least 2 days a week. ?Eat only one serving each day of meat, poultry, fish, or seafood. ?When you prepare animal proteins, cut pieces into small portion sizes. For most meat and fish, oneserving is about the size of the palm of your hand. Eat at least five servings of fresh fruits and vegetables each day. To do this: ?Keep fruits and vegetables on hand for snacks. ?Eat one piece of fruit or a handful of berries with breakfast. ?Have a salad and fruit at lunch. ?Have two kinds of vegetables at dinner. You may be told to limit foods that are high in a substance called oxalate. These include: ?Spinach (cooked), rhubarb, beets, sweet potatoes, and Somali chard. ?Peanuts. ?Potato chips, lithuanian fries, and baked potatoes with skin on. ?Nuts and nut products. ?Chocolate. If you regularly take a diuretic medicine, make sure to eat at least 1 or 2 servings of fruits or vegetables that are high in potassium each day. These include: ?Avocado. ?Banana. ?Castro, prune, carrot, or tomato juice. ?Baked potato. ?Cabbage. ?Beans and split peas. Lifestyle Drink enough fluid to keep your urine pale yellow. This is the most important thing you can do. Spread your fluid intake throughout the day. If you drink alcohol: ?Limit how much you have to: ?0 1 drink a day for women who are not . ?0 2 drinks a day for men. ?Know how much alcohol is in your drink. In the [place] one drink equals one 12 oz bottle of beer (355 mL), one 5 oz glass of wine (148 mL), or one 1 oz glass of hard liquor (44 mL). Lose weight if told by your health care provider. Work with your dietitian to find an eating plan and weight loss strategies that work best for you. General information Talk to your health care provider and dietitian about taking daily supplements. Depending on your health and the cause of your kidney stones, you may be told: ?Do not take high-dose supplements of vitamin C (1,000 mg a day or more). ?To take a calcium supplement. ?To take a daily probiotic supplement. ?To take other supplements such as magnesium, fish oil, or vitamin B6. Take jbek-nwu-alabcwf and prescription medicines only as told by your health care provider. These include supplements. What foods should I limit? Limit your intake of the following foods, or eat them as told by your dietitian. Vegetables Spinach. Rhubarb. Beets. Canned vegetables. Pickles. Olives. Baked potatoes with skin. Grains Wheat bran. Baked goods. Salted crackers. Cereals high in sugar. Meats and other proteins Nuts. Nut butters. Large portions of meat, poultry, or fish. Salted, precooked, or cured meats, such as sausages, meat loaves, and hot dogs. Dairy Cheeses. Beverages Regular soft drinks. Regular vegetable juice. Seasonings and condiments Seasoning blends with salt. Salad dressings. Soy sauce. Ketchup. Barbecue sauce. Other foods Canned soups. Canned pasta sauce. Casseroles. Pizza. Lasagna. Frozen meals. Potato chips. [place] Islander fries. The items listed above may not be a complete list of foods and beverages you should limit. Contact a dietitian for more information. What foods should I avoid? Talk to your dietitian about specific foods you should avoid based on the type of kidney stones youhave and your overall health. Fruits Grapefruit. The item listed above may not be a complete list of foods and beverages you should avoid. Contact adietitian for more information. Summary Kidney stones are deposits of minerals and salts that form inside your kidneys. You can lower your risk of kidney stones by making changes to your diet. The most important thing you can do is drink enough fluid. Drink enough fluid to keep your urine pale yellow. Talk to your dietitian about how much calcium you should have each day, and eat less salt and animal protein as told by your dietitian. This information is not intended to replace advice given to you by your health care provider. Make sure you discuss any questions you have with your health care provider. Document Revised: 11/27/2022 Document Reviewed: 11/27/2022 [employer] Patient Education 2022 [employer]. Follow Up Care 02/18/2023 14:27:38 With:ISAURA DEL ROSARIO PA-C, URL Address: [address] [facility] [address] When: Unknown [facility] 03-28-2024 History of Present illness Narrative* Sandra Rai MD - 11/26/2023 11:10 AM EDT Subjective Lexi Torres is a 72 y.o. male Chief Complaint Follow-up HPI Patient is in the office for follow-up for the problems noted below, he has had no indication of recurrent atrial fibrillation and his EKG today revealed sinus rhythm with sinus bradycardia and normal QTc interval. Recent lab data since last visit were reviewed and his numbers look great. His weight remains above target and this is working progress. His examination is only remarkable for bradycardia and overweight. Assessment/recommendations: 1-persistent atrial fibrillation status post cardioversion October 2019, currently in sinus rhythmon dofetilide and long-term anticoagulation with Xarelto with no breakthrough events. Present medical therapy will left unchanged 2-hypertension currently under control on beta theodora and amlodipine/valsartan 3-overweight, encouraged patience diet control 4-reactive airway disease on Advair and Ventolin which will continue, he follows with pulmonary medicine 5-high-risk medication with antiarrhythmic and anticoagulants, 6-elevated coronary calcium score over 1000, stress test 2019 was normal. Presently on aspirin and statin. LDL on target 7-hyperlipidemia on statin therapy. Lipid profile is on target 8-sinus bradycardia due to beta-theodora therapy, asymptomatic and inconsequential Patient will follow up with me in the office in 6 months Review of Systems All other systems reviewed and are negative. Vitals: 11/26/23 1114 11/26/23 1138 BP: 148/76 138/76 BP Location: Left arm Left arm Patient Position: Sitting Sitting Pulse: 55 Weight: 91.6 kg (202 lb) Height: 1.803 m (5' 11 ) EKG done in office today Objective Physical Exam Constitutional: Appearance: Normal appearance. HENT: Nose: Nose normal. Neck: Vascular: No carotid bruit. Cardiovascular: Rate and Rhythm: Normal rate. Pulses: Normal pulses. Heart sounds: Normal heart sounds. Pulmonary: Effort: Pulmonary effort is normal. Abdominal: General: Bowel sounds are normal. Palpations: Abdomen is soft. Musculoskeletal: General: Normal range of motion. Cervical back: Normal range of motion. Right lower leg: No edema. Left lower leg: No edema. Skin: General: Skin is warm and dry. Neurological: General: No focal deficit present. Mental Status: He is alert. Psychiatric: Mood and Affect: Mood normal. Behavior: Behavior normal. Thought Content: Thought content normal. Judgment: Judgment normal. Allergies Patient has no known allergies. Current Medications Current Outpatient Medications: albuterol 90 mcg/actuation inhaler, Inhale 2 puffs every 6 hours if needed., Disp: , Rfl: amlodipine-valsartan (Exforge) 10-160 mg tablet, Take 1 tablet by mouth once daily., Disp: , Rfl: aspirin 81 mg EC tablet, Take 1 tablet (81 mg) by mouth 2 times a week., Disp: , Rfl: budesonide-formoteroL (Symbicort) 160-4.5 mcg/actuation inhaler, Use as directed, Disp: , Rfl: dofetilide (Tikosyn) 250 mcg capsule, Take 1 capsule (250 mcg) by mouth 2 times a day., Disp: , Rfl: metoprolol succinate XL (Toprol-XL) 50 mg 24 hr tablet, Take 1 tablet (50 mg) by mouth once daily.,Disp: 90 tablet, Rfl: 3 Xarelto 20 mg tablet, Take 1 tablet (20 mg) by mouth once daily., Disp: , Rfl: atorvastatin (Lipitor) 20 mg tablet, Take 1 tablet (20 mg) by mouth once daily at bedtime., Disp: 90 tablet, Rfl: 3 Assessment/Plan 1. Persistent atrial fibrillation (CMS/HCC) Follow Up In Cardiology ECG 12 Lead 2. High coronary artery calcium score 3. Essential hypertension atorvastatin (Lipitor) 20 mg tablet 4. Mixed hyperlipidemia 5. BMI 28.0-28.9,adult 6. Former smoker 7. High risk medication use Scribe Attestation By signing my name below, I, Rene Hayes LPN attest that this documentation has been prepared under the direction and in the presence of Sandra Rai MD. Provider Attestation - Scribe documentation All medical record entries made by the Scribe were at my direction and personally dictated by me. Ihave reviewed the chart and agree that the record accurately reflects my personal performance of the history, physical exam, discussion and plan. documented in [facility] Work Phone: 1(435) 313-209403-28-2024 Instructions* Patient Instructions* Tammy St LPN - 11/26/2023 11:10 AM EDT Please bring all medicines, vitamins, and herbal supplements with you when you come to the office. Prescriptions will not be filled unless you are compliant with your follow up appointments or have a follow up appointment scheduled as per instruction of your physician. Refills should be requested at the time of your visit. BMI was above normal measurement. Current weight: 91.6 kg (202 lb) Weight change since last visit (-) denotes wt loss 3 lbs Weight loss needed to achieve BMI 25: 23.1 Lbs Weight loss needed to achieve BMI 30: -12.6 Lbs Provided instructions on dietary changes Provided instructions on exercise. documented in this [facility]Mer[facility] Work Phone: [phone]) 622-807608-31-2023 Evaluation note* Encounter Date Diagnosis Assessment Notes Treatment Notes Treatment Clinical Notes Mar, COPD (chronic obstructive pulmonary disease) (ICD-10 - J44.9) [employer] [facility] [employer] Other 06-27-2023 Evaluation note* Encounter Date Diagnosis Assessment Notes Treatment Notes Treatment Clinical Notes Jan, COPD (chronic obstructive pulmonary disease) (ICD-10 - J44.9) [employer] Other 05-10-2023 Discharge summary Author Asif Bautista [facility] January 07, 2023 11:48am Note Date/Time January 07, 2023 11:36 am [facility] [address] [place] [address] Discharge Summary Signed Patient: Santhosh Torres MR#: [id number] : 1950 Acct:[id number] Age/Sex: 72 / M Adm Date: 3 Loc: Room: [address] [place] [address]: Asif Bautista MD Copies to: MD Zane Lozada,DO~ Providers Date of Discharge: 01/07/23 Discharging Provider: Asif Bautista Primary Care Provider: Zane Velasco Consults: 01/05/23 19:21 Consult to Pulmonology Routine Discharge Diagnosis (1) Acute bronchitis: (2) Acute respiratory failure with hypoxia: (3) Hypertension: (4) URI (upper respiratory infection): (5) Dyslipidemia: (6) COPD with acute exacerbation: Final Diagnosis Final Discharge Diagnosis: As above Summary Hospital Course Hospital course: Mr. Torres is a 72-year-old male with PMH of what appears to be chronic lung disease managed by maintenance inhaler (unclear diagnosis), A-fib on Xarelto, CAD who presents to the emergency department with significant dyspnea and hypoxia. Patient was requiring 3 L nasal cannula oxygen and normally wears no home O2. He had difficulty speaking and more than 1-2 word phrases upon presentation. He was started on aggressive treatment for COPD exacerbation withaerosol treatments 4 times daily, high-dose IV steroid as well as ceftriaxone and azithromycin. Patient had significant improvement in his respiratory statusand was eventually weaned to room air. Pulmonary team was consulted given patient's unclear history of chronic lung disease. He will be planned for outpatient pulmonary function tests for further determination of patient's chronic lung disease diagnosis. He will continue a prednisone taper as prescribed by pulmonary medicine. He also finish a total 5-day course of cefdinir and azithromycin. 35 minutes spent coordinating the discharge of this patient Time Spent with Patient Time spent providing/coordinating discharge services (# min): 35 Diagnostic Studies Completed and Pending Studies Pending studies at discharge: 01/08/23 05:00 EKG [ECG 12 lead ECG] IN AM Basic Metabolic Panel [CHEM] IN AM Complete Blood Count Auto Diff IN AM Labs on day of discharge: 01/07/23 08:13: Potassium 4.1 01/07/23 05:47: PHA Creatinine Clear 67.01, Sodium 138, Potassium , Chloride 104, Carbon Dioxide 24.6, Anion Gap TNP, BUN 34 H, Creatinine 1.03, Est GFR (CKD-EPI) > 60.0, Glucose 149 H, Calcium 8.7 01/07/23 05:47: Corrected WBC 18.6 H, Uncorrected WBC Count 18.6 H, RBC 4.92, Hgb 14.6, Hct 43.7, MCV 88.9, MCH 29.7, MCHC 33.4, RDW 13.9, Plt Count 210, MPV 8.6, Neut % (Auto) 91.5, Lymph % (Auto) 5.8, Weston % (Auto) 2.6, Eos % (Auto) 0.0, Baso % (Auto) 0.1, Nucleat RBC Rel Count 0.1, Neut # (Auto) 17.0 H, Lymph # (Auto) 1.1, Weston # (Auto) 0.5, Eos # (Auto) 0.0, Baso # (Auto) 0.0 Exam Physical Exam Vital Signs: Temp Pulse Resp BP Pulse Ox O2 Del Method O2 Flow Rate 97.4 F L 79 20 146/75 H 92 L Room Air 1 01/07/23 00:17 01/07/23 08:59 01/07/23 08:59 01/07/23 08:00 01/07/23 08:00 01/07/23 08:00 01/06/23 16:14 Narrative: Constitutional: Well-appearing, elderly WM, resting in bed comfortably, ambulating around the room HEENT: Moist mucous membranes, neck supple Cardiovascular: RRR, no M/R/G, normal S1 and S2, no JVD Respiratory: Lungs clear to auscultation bilaterally, no wheezes, rales or rhonchi GI: Soft, NTND, normoactive bowel sounds : Deferred Neuro: AAO x3, no focal deficits. CN III-XII grossly intact, Strength 5/5 throughout Extremities: No clubbing, cyanosis or edema Psych: Patient calm, cooperative and conversant Discharge Plan Discharge Plan Patient Disposition: Home Additional Instructions: *Pulmonary Function Test is scheduled for February 16, 2023 at 10am at [facility]. Do NOT take any breathing medication (inhalers, rescue inhaler) 4 hrs prior to testing. Call pulmonary office with any questions. Prescriptions: New prednisone 10 mg tablet 10 mg PO DAILY Qty: 25 0RF Rx Instructions: Take 4 tabs daily x 3 days, then 2 tabs daily x 3 days, then 1 tab daily x 7 days then stop. Take with food. azithromycin 250 mg tablet 250 mg PO DAILY 4 Days Qty: 4 0RF cefdinir 300 mg capsule 300 mg PO BID 4 Days Qty: 8 0RF Continued amlodipine 10 mg Tablet 10 mg PO DAILY albuterol sulfate [Ventolin HFA] 90 mcg/actuation Hfa Aerosol Inhaler 2 puff INHALATION Q4H PRN (Reason: Shortness Of Breath) budesonide-formoterol 160-4.5 mcg/actuation Hfa Aerosol Inhaler 2 puff INHALATION BID Xarelto 20 mg Tablet 20 mg PO DAILY atorvastatin 20 mg Tablet 20 mg PO QHS aspirin 81 mg Tablet,Chewable 81 mg PO 2XW Rx Instructions: twice a week Thursday and Thursday metoprolol succinate 50 mg Tablet Extended Release 24 Hr 50 mg PO DAILY 30 Days Qty: 30 12RF dofetilide 250 mcg Capsule 250 mcg PO Q12H 90 Days Qty: 180 3RF Follow Up: Ozzy Chan MD [Active Staff] - 02/24/23 3:45 pm (Please arrive 15- 30 minutes early to complete paperwork.) Documented By: Asif Bautista MD 3 1133 Signed By: <Electronically signed by Asif Bautista MD> 01/07/23 1148 [facility] Work Phone: 1(980) 151-257305-10-2023 Progress note Author Ozzy Chan [facility] January 07, 2023 11:16am Note Date/Time January 07, 2023 11:16 am [facility] [address] [place], [place] [id number] Pulmonology Progress Note Signed Patient: Santhosh Torres MR#: [id number] : 1950 Acct:[id number] Age/Sex: 72 / M Adm Date: 3 Loc: Room: [address] [place] [address] Type: ADM IN Attending Dr: Asif Bautista MD Copies to: ~ Date of Service: 01/07/2023 Subjective Subjective Narrative: Patient reports he is feeling better and close to baseline. He is no longer requiring supplemental oxygen. He is ready to go home. Exam Physical Exam Vital Signs: Temp Pulse Resp BP Pulse Ox O2 Del Method O2 Flow Rate 97.4 F L 79 20 146/75 H 92 L Room Air 1 01/07/23 00:17 01/07/23 08:59 01/07/23 08:59 01/07/23 08:00 01/07/23 08:00 01/07/23 08:00 01/06/23 16:14 Const Nutritional Appearance: average body habitus Orientation: alert and awake HEENT Head: normal to inspection, normocephalic and atraumatic Ears: external ears normal Nose: external nose normal Face and sinus: normal facial exam Eyes Eyelids: eyelids normal Sclera: sclerae normal Neck Neck: normal visual inspection and no lymphadenopathy Chest Chest palpation & inspection: normal inspection of the chest Resp Effort & Inspection: normal respiratory effort and able to speak in complete sentences Auscultation: no rales, no rhonchi and no wheezes Cardio Rate: regular rate Rhythm: regular rhythm Heart Sounds: S1 normal, S2 normal, no gallops, no murmurs and no rubs GI Inspection: normal to inspection Palpation: soft and nontender Auscultation: hypoactive bowel sounds Rectal Exam: deferred General: deferred Skin General: no rashes or lesions noted Extrem General: no pedal edema Objective Intake and Output I&O - Last 24 Hours: Intake & Output 01/06/23 01/07/23 01/07/23 23:59 07:59 15:59 Intake Total 300 / 1080 100 / 100 Balance 300 / 1080 100 / 100 Labs 01/07/23 05:47 01/07/23 08:13 Microbiology Micro: Microbiology 01/05/23 18:30 Aerobic Culture - Final Sputum - Expectorated Moderate Normal Respiratory Dana 2 Days Gram Stain - Final Assessment/Plan Assessment/Plan (1) Acute bronchitis: Plan Hospital day #3 for non-smoker with recurrent episodes of cold which certainlycould suggest the possibility of reactive airways disease with recurrent episodes of airways inflammation. Patient feels that he is stable and is presently on room air. I did encourage him to ambulate in the halls. Otherwise, I believe that the patient can be discharged to home with plan to follow-up with us as an outpatient with repeat pulmonary function test to better evaluate his obstructive lung disease and adjust controller therapies to preventrecurring episodes of airways inflammation. Patient indicates he is agreeable with this plan. Documented By: Ozzy Chan MD 3 1114 Signed By: <Electronically signed by MD Ozzy Chan> 01/07/23 1116 [facility] Work Phone: 1(101) 639-987105-09-2023 Consult note Author Ozzy Chan [facility] January 06, 2023 3:04pm Note Date/Time January 06, 2023 10:40a m [facility] [address] [place] [address] Pulmonology Consult Note Signed Patient: Santhosh Torres MR#: [id number] : 1950 Acct:[id number] Age/Sex: 72 / M Adm Date: 3 Loc: Room: [address] [place] [address] Type: ADM IN Attending Dr: Asif Bautista MD Copies to: MD Asif Ghosh MD Paul J Bruner,DO~ HPI Date/Time of Consultation: Date of Service: 01/06/2023 Time of Service: 10:33 Consulting Provider: Ozzy Chan Requesting Provider: Asif Bautista History of Present Illness History of present illness: Mr. Torres is a 72 year old male seen at the request of the hospitalist servicefor hypoxemia and COPD exacerbation. Patient has had a long standing history of intermittent episodes of a cold He has followed with Dr. Zane Velasco and has been treated with systemic steroids and rescue albuterol. He also had remote PFTs (9- 10 years ago) and has been treated with Advair with more frequent episodes of exacerbation over time. Patient presented to the emergency departmentyesterday with complaints of chest congestion, cough and dyspnea with also having similar symptoms. He reports difficulty expectorating mucus. Note patient is a never smoker and was noted to be hypoxemic at 87% on room air. Work-up in the emergency department included a negative COVID test. Chest x-raywas unremarkable. Patient was started on ceftriaxone and azithromycin and IV steroids. He is improved but remains with requirement for supplemental oxygen. Review of Systems Review of Systems All other systems reviewed & are negative unless noted below or in HPI PMFSH Vaccinated for COVID-19?: Yes Medical History (Updated 01/06/23 @ 00:59 by Maggie Hung RN) History of cardioversion October 2019 Kidney stones Paroxysmal atrial fibrillation Primary hypertension Surgical History H/O bilateral cataract extraction H/O lithotripsy Family History (Updated 01/05/23 @ 18:42 by Filipe Reynolds DO) Other Hypertension Social History Smoking Status: Former smoker Tobacco Type: cigarettes Substance Use Type: None Meds Medications and Allergies Allergies No Known Allergies Allergy (Verified 10/20/19 12:19) Home Medications albuterol sulfate 90 mcg/actuation aerosol inhaler (Ventolin HFA) 2 puff inhalation Q4H PRN Shortness Of Breath 10/19/19 [History Confirmed 01/05/23] amlodipine 10 mg tablet 10 mg PO DAILY 10/19/19 [History Confirmed 01/05/23] budesonide-formoterol HFA 160 mcg-4.5 mcg/actuation aerosol inhaler 2 puff inhalation BID 10/19/19 [History Confirmed 01/05/23] rivaroxaban 20 mg tablet (Xarelto) 20 mg PO DAILY 10/19/19 [History Confirmed 01/05/23] aspirin 81 mg chewable tablet 81 mg PO 2XW 01/25/20 [History Confirmed 01/05/23] atorvastatin 20 mg tablet 20 mg PO QHS 01/25/20 [History Confirmed 01/05/23] dofetilide 250 mcg capsule 250 mcg PO Q12H 90 days #180 caps 01/26/20 [Rx Confirmed 01/05/23] metoprolol succinate 50 mg tablet,extended release 24 hr 50 mg PO DAILY 30 days #30 tabs 01/26/20 [Rx Confirmed 01/05/23] Exam Physical Exam Vital Signs: Temp Pulse Resp BP Pulse Ox O2 Del Method O2 Flow Rate 97.5 F L 76 22 153/76 H 94 L Nasal Cannula 3 01/06/23 07:46 01/06/23 08:46 01/06/23 08:46 01/06/23 07:46 01/06/23 08:45 01/06/23 08:45 01/06/23 08:45 Const Nutritional Appearance: average body habitus Orientation: alert and awake HEENT Head: normal to inspection, normocephalic and atraumatic Ears: external ears normal Nose: external nose normal Face and sinus: normal facial exam Eyes Eyelids: eyelids normal Sclera: sclerae normal Neck Neck: normal visual inspection and no lymphadenopathy Chest Chest palpation & inspection: normal inspection of the chest Resp Effort & Inspection: normal respiratory effort and able to speak in complete sentences Auscultation: no rales, no rhonchi and wheezes expiratory wheezes (mild, scattered) Cardio Rate: regular rate Rhythm: regular rhythm Heart Sounds: S1 normal, S2 normal, no gallops, no murmurs and no rubs GI Inspection: normal to inspection Palpation: soft and nontender Auscultation: hypoactive bowel sounds Rectal Exam: deferred General: deferred Skin General: no rashes or lesions noted Extrem General: no pedal edema Results Intake and Output I&O - Last 24 Hours: Intake & Output 01/05/23 01/06/23 01/06/23 23:59 07:59 15:59 Intake Total 500 / 550 300 / 300 Balance 500 / 550 300 / 300 Weight 88 kg 88.2 kg Labs 01/06/23 06:14 01/06/23 06:14 Microbiology Micro: 01/05/23 18:30 Aerobic Culture - Preliminary Sputum - Expectorated Moderate Normal Respiratory Dana 1 Day Gram Stain - Final 01/05/23 13:33 SARS-CoV-2, Influenza & RSV (PCR) - Final Nasopharyngeal Imaging and Cardiology Chest x-ray: Status: image reviewed by me Additional comments: Patient: Santhosh Torres MR#: [id number] : 1950 Acct:[id number] Age/Sex: 72 / M ADM Date: 01/05/23 Loc: ER Room: Type: PRE ER Attending Dr: Copies to: Herminio Rogel DO Ordering Provider: Herminio Rogel DO Date of Service: 01/05/23 XR/XR chest 1V portable: Shortness of Breath/Dyspnea PORTABLE AP ERECT CHEST 1852 hours CLINICAL HISTORY: Shortness of breath and chest tightness COMPARISON: 05/25/2013 The heart is within normal limits. There is no vascular congestion. No consolidation is identified. There is no effusion or pneumothorax. The osseous structures are intact. There is mild endplate spurring at the spine. XR/XR chest 1V portable IMPRESSION: NO ACUTE FINDINGS Assessment/Plan (1) Acute bronchitis: Plan Hospital day #1 for non-smoker with recurrent episodes of cold which certainlycould suggest the possibility of reactive airways disease with recurrent episodes of airways inflammation. Patient previously been treated with Advair and presents after being exposed to illness from his with typical symptoms of airways inflammation. Patient is on appropriate therapy with ceftriaxone, azithromycin, steroids, and bronchodilators. Case was discussed with the hospitalist service. We will decrease Solu-Medrol to 40 mg IV every 12 hours which is a sizable jump but with the patient much improved. I read recommend patient complete a course of macrolide antibiotic for potential atypical infection. As an outpatient, patient will need pulmonary function test to determine if further controlling agent such as long-acting anticholinergics or other agents including leukotriene receptor antagonist may be appropriate. Patient ismuch improved with status for discharge primarily based on his oxygen requirements. Documented By: Ozzy Chan MD 3 [id number] Signed By: <Electronically signed by MD Ozzy Chan> 01/06/23 7244 [facility] Work Phone: 1(333) 608-113005-09-2023 Progress note Author Asif Bautista [facility] January 06, 2023 12:03pm Note Date/Time January 06, 2023 11:44a m [facility] [address] [place] [address] Hospitalist Progress Note Signed Patient: Santhosh Torres MR#: [id number] : 1950 Acct:[id number] Age/Sex: 72 / M Adm Date: 3 Loc: Room: [address] [place] [address] Type: ADM IN Attending Dr: Asif Bautista MD Copies to: ~ Date of Service: 01/06/2023 Subjective Subjective Narrative: Patient states he does feel significantly better today. Still requiring 3 L nasal cannula oxygen. Feels that his wheezing has significantly improved. Doesnot have any of the other symptoms of his viral prodrome came on earlier, including sore throat, headache, nasal congestion. Exam Physical Exam Vital Signs: Temp Pulse Resp BP Pulse Ox O2 Del Method O2 Flow Rate 97.6 F 93 H 20 145/72 H 95 Nasal Cannula 3 01/06/23 11:23 01/06/23 11:23 01/06/23 11:23 01/06/23 11:23 01/06/23 11:23 01/06/23 11:23 01/06/23 11:23 Narrative: Constitutional: Well-appearing, elderly WM, resting in bed comfortably, ambulating around the room HEENT: Moist mucous membranes, neck supple Cardiovascular: RRR, no M/R/G, normal S1 and S2, no JVD Respiratory: Lungs clear to auscultation bilaterally, no wheezes, rales or rhonchi GI: Soft, NTND, normoactive bowel sounds : Deferred Neuro: AAO x3, no focal deficits. CN III-XII grossly intact, Strength 5/5 throughout Extremities: No clubbing, cyanosis or edema Psych: Patient calm, cooperative and conversant Objective Lab Results 01/06/23 06:14 01/06/23 06:14 Microbiology Results Microbiology 01/05/23 18:30 Sputum - Expectorated Aerobic Culture - Preliminary Moderate Normal Respiratory Dana 1 Day 01/05/23 18:30 Sputum - Expectorated Gram Stain - Final 01/05/23 13:33 Nasopharyngeal SARS-CoV-2, Influenza & RSV (PCR) - Final Meds Allergies and Active Meds Allergies No Known Allergies Allergy (Verified 10/20/19 12:19) Active Meds: Active Medications Generic Name Dose Route Start Last Admin Trade Name Freq PRN Reason Stop Dose Admin Acetaminophen 650 mg 01/05/23 18:21 Acetaminophen 325 Mg Tablet PO 01/05/24 18:20 Q6HR PRN Pain Scale 1 - 3 or fever Albuterol 2.5 mg 01/05/23 18:21 01/06/23 02:52 Albuterol Neb 2.5 Mg/3 Ml Vial.Neb INHALATION 01/05/24 18:20 2.5 mg Q3H PRN Administration Shortness Of Breath Albuterol/Ipratropium 3 ml 01/05/23 20:00 01/06/23 08:45 Ipratropium/Albuterol 0.5-3 Mg 3 Ml Ampul.Neb INHALATION 01/05/24 19:59 3 ml QID.RESP PRINCESS Administration Amlodipine Besylate 10 mg 01/06/23 09:00 01/06/23 09:04 Amlodipine 10 Mg Tablet PO 01/06/24 08:59 Not Given DAILY PRINCESS Aspirin 81 mg 01/07/23 09:00 Aspirin 81 Mg Tab.Chew PO 01/07/24 08:59 [email or web address] PRINCESS Atorvastatin Calcium 20 mg 01/05/23 22:00 01/05/23 21:17 Atorvastatin 20 Mg Tablet PO 01/05/24 21:59 20 mg QHS PRINCESS Administration Benzonatate 200 mg 01/05/23 18:21 Benzonatate 100 Mg Capsule PO 01/05/24 18:20 TID PRN Cough Budesonide/Formoterol Fumarate 2 puff 01/05/23 21:00 01/06/23 08:45 Budesonide/Formoterol 160-4.5 Mcg 60 Puff/6 Gm Hfa.Aer.Ad INHALATION 01/05/24 20:59 2 puff BID PRINCESS Administration Dofetilide 250 mcg 01/05/23 21:00 01/06/23 09:05 Dofetilide 250 Mcg Capsule PO 01/05/24 20:59 Not Given Q12HR PRINCESS Guaifenesin 200 mg 01/05/23 18:21 Guaifenesin Syrup 300 Mg/15 Ml Udc PO 01/05/24 18:20 Q4H PRN Cough Ceftriaxone Sodium 1 gm in 50 mls @ 100 mls/hr 01/06/23 16:00 Rocephin IV Q24H PRINCESS Azithromycin 500 mg in 250 mls @ 250 mls/hr 01/06/23 17:00 Zithromax IV Q24H PRINCESS Methylprednisolone Sodium Succinate 60 mg 01/06/23 00:00 01/06/23 11:30 Methylprednisolone Sod Succ/Pf 125 Mg/2 Ml Vial IV-PUSH 01/06/24 00:00 60 mg Q6HR PRINCESS Administration Metoprolol Succinate 50 mg 01/06/23 09:00 01/06/23 09:05 Metoprolol Succinate 50 Mg Tab.Er.24h PO 01/06/24 08:59 Not Given DAILY PRINCESS Pantoprazole Sodium 40 mg 01/05/23 18:30 01/06/23 09:06 Pantoprazole 40 Mg Tablet.Dr PO 01/05/24 18:29 Not Given DAILY PRINCESS Potassium Chloride 20 meq 01/05/23 18:21 Potassium Chloride Er 20 Meq Tab.Er.Prt PO 01/05/24 18:20 DAILY PRN Hypokalemia Potassium Chloride 40 meq 01/05/23 18:21 Potassium Chloride Er 20 Meq Tab.Er.Prt PO 01/05/24 18:20 DAILY PRN Hypokalemia Rivaroxaban 20 mg 01/06/23 09:00 01/06/23 09:06 Rivaroxaban 20 Mg Tablet PO 01/06/24 08:59 Not Given DAILY PRINCESS Saccharomyces Boulardii 250 mg 01/06/23 08:00 01/06/23 07:50 Saccharomyces Boulardii 250 Mg Capsule PO 01/06/24 07:59 250 mg BID.WITH.MEALS PRINCESS Administration Sodium Chloride 0 ml 01/05/23 13:29 01/05/23 15:14 Sodium Chloride 0.9 % 10 Ml Syringe IV-PUSH 01/05/24 13:28 10 ml PRN PRN Administration Flush Sodium Chloride 0 ml 01/05/23 22:00 01/06/23 05:57 Sodium Chloride 0.9 % 10 Ml Syringe IV-PUSH 01/05/24 21:59 10 ml QSHIFT PRINCESS Administration A&P - Hospitalist Assessment/Plan (1) COPD with acute exacerbation: (2) Acute bronchitis: (3) Hypertension: (4) Dyslipidemia: Plan Acute exacerbation of chronic lung disease Acute hypoxic respiratory failure Acute infective bronchitis Patient does still require 3 L nasal cannula oxygen, and normally wears no home O2. Symptomatically is significantly improved today. Cough is improved. No wheezing on chest exam. We will know that he is doing better when he is able to tolerate room oxygen and not require supplemental O2, which will likely take at least another day. We will also need to wean steroids to closer to home doses to see if patient tolerates this from a respiratory standpoint before being discharged -Wean O2 as tolerated -Wean IV steroids per pulmonary -Continue aerosol treatments 4 times daily -Continue Rocephin and Zithromax -Albuterol nebulizer on a as needed basis every 3 hours as needed. -Florastor to help prevent against antibiotic associated diarrhea. -Check CBC and BMP daily -Likely needs official PFTs on discharge Paroxysmal Atrial Fibrillation History of Coronary Artery Disease He does remain in normal sinus rhythm. Has ongoing anticoagulation with Xarelto, and antiarrhythmic with dofetilide 250 mcg p.o. twice daily -Continuous telemetry monitoring as he is at risk of developing A-fib with RVR CODE STATUS: Full code Documented By: Asif Bautista MD 3 [id number] Signed By: <Electronically signed by Asif Bautista MD> 01/06/23 1203 [facility] Work Phone: [phone]) 411-445605-08-2023 History and physical note Author Filipe Reynolds [facility] January 05, 2023 6:45pm Note Date/Time January 05, 2023 6:32pm [facility] [address] [place] [address] Hospitalist H&P Signed Patient: Santhosh Torres MR#: [id number] : 1950 Acct:[id number] Age/Sex: 72 / M Adm Date: 3 Loc: 3T Room: [address] [place] [address] Type: ADM IN Attending Dr: Filipe Reynolds DO Copies to: DO Zane Jacob DO~ HPI DATE OF EXAMINATION: 01/05/23 CHIEF COMPLAINT: Severe coughing and shortness of breath and wheezing. HISTORY OF PRESENT ILLNESS: This is a 72-year-old man who was in his usual state of health until a couple ofdays ago when he began having coughing and then wheezing and a sensation of raspy breathing throughout his chest. He is accompanied emergency room by his has to do most of the talking because if the patient talks a little bit he gets nonstop coughing spells. The indicates that she got a viral syndrome about 5 days ago but she says that she can expectorate her mucus and she is getting better. The patient himself got the illness a couple days later. This caused him to begin coughing and then have a lot of wheezing. The says that he normally has some wheezing at baseline. When I asked the patient he said that he does not have a history of asthma as a child, and is somewhat uncertain why he has difficulty with wheezing nowadays. He describes getting ill like this in the past and his primary care provider providing him with a burst of prednisone which helped. He does use Symbicort twice a day and has an albuterol rescue inhaler that he normally uses only rarely. In the emergency room, when the patient arrived, he was very tachypneic. His white blood count is elevated at 13. His oxygen saturations were only 87% on room air. He was having a lot of coughing and wheezing. With a slight cough hegoes into a coughing spell and has desaturations. He was found to be negative for COVID and negative for influenza. He was provided with steroids and IV magnesium. They tried ambulating him but his oxygen saturations dropped to 87% on room air and he got a bad coughing spell. He was provided with Rocephin and Zithromax. Review of Systems Review of Systems Review of systems: 10 systems are reviewed and are negative except as mentioned elsewhere in the documentation. [facility] Vaccinated for COVID-19?: Yes Medical History History of cardioversion October 2019 Kidney stones Paroxysmal atrial fibrillation Primary hypertension Surgical History H/O bilateral cataract extraction H/O lithotripsy Family History (Updated 01/05/23 @ 18:42 by Filipe Reynolds DO) Other Hypertension Social History Smoking Status: Former smoker Tobacco Type: cigarettes Substance Use Type: None Meds Medications and Allergies Allergies No Known Allergies Allergy (Verified 10/20/19 12:19) Home Medications albuterol sulfate 90 mcg/actuation aerosol inhaler (Ventolin HFA) 2 puff inhalation Q4H PRN Shortness Of Breath 10/19/19 [History Confirmed 01/05/23] amlodipine 10 mg tablet 10 mg PO DAILY 10/19/19 [History Confirmed 01/05/23] budesonide-formoterol HFA 160 mcg-4.5 mcg/actuation aerosol inhaler 2 puff inhalation BID 10/19/19 [History Confirmed 01/05/23] rivaroxaban 20 mg tablet (Xarelto) 20 mg PO DAILY 10/19/19 [History Confirmed 01/05/23] aspirin 81 mg chewable tablet 81 mg PO 2XW 01/25/20 [History Confirmed 01/05/23] atorvastatin 20 mg tablet 20 mg PO QHS 01/25/20 [History Confirmed 01/05/23] dofetilide 250 mcg capsule 250 mcg PO Q12H 90 days #180 caps 01/26/20 [Rx Confirmed 01/05/23] metoprolol succinate 50 mg tablet,extended release 24 hr 50 mg PO DAILY 30 days #30 tabs 01/26/20 [Rx Confirmed 01/05/23] Exam Physical Exam Vital Signs: Temp Pulse Resp BP Pulse Ox O2 Del Method O2 Flow Rate 97.8 F 78 20 142/67 H 92 L Nasal Cannula 3 01/05/23 13:29 01/05/23 17:45 01/05/23 17:45 01/05/23 17:45 01/05/23 17:45 01/05/23 17:45 01/05/23 17:45 Narrative: GEN: Patient can speak only 1 or 2 words speak for getting a deep harsh hacking nonproductive coughing spell that takes several minutes to clear. Head: Normal Cephalic, Atraumatic. Eyes: Conjunctiva and sclera clear bilaterally. Nose: External nose and nares normal bilaterally. Mouth: Lips and tongue normal. Neck: No JVD. No thyromegaly. No lymphadenopathy. Lungs: Moderate wheezing throughout all lung dobbins. Wheezing is so loud it is difficult to assess for any crackles Heart: Regular rate and rhythm, no murmurs, rubs, or gallops. Abdomen: Soft, normal bowel sounds, no rigidity, guarding, or acute peritoneal signs. Extremities: No swelling or cords in the calves bilaterally, 2+ edema from knees to ankles in both legs. Skin: No systemic rashes or lesions. Psychiatric: Calm. Conversant. Cooperative. Neuro: Awake, Alert, and Oriented x 3. No focal or lateralizing deficits. Results Lab Results Labs: Laboratory Last Values Corrected WBC 13.0 X10E3/uL (4.1-10.5) H 01/05/23 13:38 Uncorrected WBC Count 13.0 x10E3/uL (4.1-10.5) H 01/05/23 13:38 RBC 5.19 X10E6/uL (3.90-5.60) 01/05/23 13:38 Hgb 15.5 g/dL (13.0-17.0) 01/05/23 13:38 Hct 46.3 % (38.8-50.0) 01/05/23 13:38 MCV 89.3 fl (83.5-101) 01/05/23 13:38 MCH 29.9 pg (27.5-35.2) 01/05/23 13:38 MCHC 33.5 g/dL (32.5-35.6) 01/05/23 13:38 RDW 13.8 % (12.0-14.8) 01/05/23 13:38 Plt Count 207 x10E3/uL (150-450) 01/05/23 13:38 MPV 8.2 fl (6.6-10.1) 01/05/23 13:38 Neut % (Auto) 71.6 % (.) 01/05/23 13:38 Lymph % (Auto) 16.5 % (.) 01/05/23 13:38 Weston % (Auto) 9.3 % (.) 01/05/23 13:38 Eos % (Auto) 1.8 % (.) 01/05/23 13:38 Baso % (Auto) 0.8 % (.) 01/05/23 13:38 Nucleat RBC Rel Count 0.1 /100 WBC (0-0.5) 01/05/23 13:38 Neut # (Auto) 9.3 x10E3/uL (1.8-7.7) H 01/05/23 13:38 Lymph # (Auto) 2.1 x10E3/uL (1.00-4.8) 01/05/23 13:38 Weston # (Auto) 1.2 x10E3/uL (0.0-0.8) H 01/05/23 13:38 Eos # (Auto) 0.2 x10E3/uL (0.0-0.45) 01/05/23 13:38 Baso # (Auto) 0.1 x10E3/uL (0.0-0.2) 01/05/23 13:38 Monocyte Dist Width 19.51 % (0.00-20.00) 01/05/23 13:38 PT 17.2 Seconds (9.0-12.9) H 01/05/23 13:38 INR 1.5 01/05/23 13:38 APTT 35.8 Seconds (25.1-36.5) 01/05/23 13:38 D-Dimer Quant (PE/DVT) < 200 ng/mL (0-243) 01/05/23 13:38 PHA Creatinine Clear 64.51 01/05/23 13:38 Sodium 140 mmol/L (136-145) 01/05/23 13:38 Potassium 3.7 mmol/L (3.5-5.1) 01/05/23 13:38 Chloride 106 mmol/L (98-107) 01/05/23 13:38 Carbon Dioxide 23.3 mmol/L (21.0-31.0) 01/05/23 13:38 Anion Gap 14.4 mEq/L (6.0-15.0) 01/05/23 13:38 BUN 16 mg/dL (7-25) 01/05/23 13:38 Creatinine 1.07 mg/dL (0.70-1.30) 01/05/23 13:38 Est GFR (CKD-EPI) > 60.0 mL/Min 01/05/23 13:38 Glucose 105 mg/dL (70-100) H 01/05/23 13:38 Calcium 9.1 mg/dL (8.6-10.3) 01/05/23 13:38 Total Bilirubin 1.8 mg/dl (0.3-1.0) H 01/05/23 13:38 AST 17 U/L (13-39) 01/05/23 13:38 ALT 13 U/L (7-52) 01/05/23 13:38 Alkaline Phosphatase 124 U/L (34-104) H 01/05/23 13:38 Troponin I High Sens 5.8 pg/mL (0.0-20.0) 01/05/23 13:38 B-Natriuretic Peptide 28.0 pg/mL (5-100) 01/05/23 13:38 Total Protein 7.8 gm/dL (6.4-8.9) 01/05/23 13:38 Albumin 4.6 gm/dL (3.5-5.7) 01/05/23 13:38 Globulin 3.2 gm/dL 01/05/23 13:38 Albumin/Globulin Ratio 1.4 01/05/23 13:38 SARS-CoV-2 Rap RNA(RT-PCR) Negative (Negative) 01/05/23 13:33 Microbiology Results Micro: Microbiology - Results from entire visit 01/05/23 13:33 Nasopharyngeal SARS-CoV-2, Influenza & RSV (PCR) - Final A&P - Hospitalist Assessment/Plan (1) COPD with acute exacerbation: (2) Acute bronchitis: (3) Hypertension: (4) Dyslipidemia: Plan Assessment: Presentation with acute exacerbation of chronic lung disease. Acute hypoxic respiratory failure. Acute infective bronchitis. Leg edema. History of coronary artery disease, paroxysmal atrial fibrillation, ongoing anticoagulation with Xarelto, and antiarrhythmic with dofetilide 250 mcg p.o. twice daily Plan: Hospital admission. Inpatient status. It will take more than 2 midnights for corticosteroids to begin to have an effect. 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 I we will know that he is doing better when he is able to tolerate room oxygen and not require supplemental oxygen anymore and his coughing is reduced. He needs close monitoring given his history of atrial fibrillation and use of chronic anticoagulation with Xarelto and chronic antiarrhythmic medications in the form of dofetilide. Continue Rocephin and Zithromax. Recheck EKG tomorrow for QT interval. His QT interval today was 418, with a QTcof 473. Recheck magnesium again tomorrow. IV corticosteroids with Solu-Medrol 60 mg IV every 6 hours to start. DuoNebs schedule IV times a day. Albuterol nebulizer on a as needed basis every 3 hours as needed. Florastor to help prevent against antibiotic associated diarrhea. Check CBC and BMP daily. Home medications have been reviewed and will be continued. Continuous telemetry monitoring as he is at risk of developing A-fib with RVR Documented By: Filipe Reynolds DO [id number] Signed By: <Electronically signed by Filipe Reynolds, > 01/05/23 1845 [facility] Work Phone: 1(555) 822-122105-01-2023 History general Narrative - Reported* Type Description Date Medical History high blood pressure Medical History kidney stones Surgical History lithotripsy x4 [facility]acerbat [facility] ,Hypoxia 12/2022 [employer] Other 06-15-2022 Hospital Discharge instructions Patient Education 02/12/2022 14:44:49 Kidney Stones, Qmml-tk-Farj Kidney Stones Kidney stones are rock-like masses that form inside of the kidneys. Kidneys are organs that make pee (urine). A kidney stone may move into other parts of the urinary tract, including: The tubes that connect the kidneys to the bladder (ureters). The bladder. The tube that carries urine out of the body (urethra). Kidney stones can cause very bad pain and can block the flow of pee. The stone usually leaves your body (passes) through your pee. You may need to have a doctor take out the stone. What are the causes? Kidney stones may be caused by: A condition in which certain glands make too much parathyroid hormone (primary hyperparathyroidism). A buildup of a type of crystals in the bladder made of a chemical called uric acid. The body makes uric acid when you eat certain foods. Narrowing (stricture) of one or both of the ureters. A kidney blockage that you were born with. Past surgery on the kidney or the ureters, such as gastric bypass surgery. What increases the risk? You are more likely to develop this condition if: You have had a kidney stone in the past. You have a family history of kidney stones. You do not drink enough water. You eat a diet that is high in protein, salt (sodium), or sugar. You are overweight or very overweight (obese). What are the signs or symptoms? Symptoms of a kidney stone may include: Pain in the side of the belly, right below the ribs (flank pain). Pain usually spreads (radiates) to the groin. Needing to pee often or right away (urgently). Pain when going pee (urinating). Blood in your pee (hematuria). Feeling like you may vomit (nauseous). Vomiting. Fever and chills. How is this treated? Treatment depends on the size, location, and makeup of the kidney stones. The stones will often pass out of the body through peeing. You may need to: Drink more fluid to help pass the stone. In some cases, you may be given fluids through an IV tube put into one of your veins at the hospital. Take medicine for pain. Make changes in your diet to help keep kidney stones from coming back. Sometimes, medical procedures are needed to remove a kidney stone. This may involve: A procedure to break up kidney stones using a beam of light (laser) or shock waves. Surgery to remove the kidney stones. Follow these instructions at home: Medicines Take wceo-rtx-ngulfhu and prescription medicines only as told by your doctor. Ask your doctor if the medicine prescribed to you requires you to avoid driving or using heavy machinery. Eating and drinking Drink enough fluid to keep your pee pale yellow. You may be told to drink at least 8 10 glasses of water each day. This will help you pass the stone. If told by your doctor, change your diet. This may include: ?Limiting how much salt you eat. ?Eating more fruits and vegetables. ?Limiting how much meat, poultry, fish, and eggs you eat. Follow instructions from your doctor about eating or drinking restrictions. General instructions Collect pee samples as told by your doctor. You may need to collect a pee sample: ?24 hours after a stone comes out. ?8 12 weeks after a stone comes out, and every 6 12 months after that. Strain your pee every time you pee (urinate), for as long as told. Use the strainer that your doctor recommends. Do not throw out the stone. Keep it so that it can be tested by your doctor. Keep all follow-up visits as told by your doctor. This is important. You may need follow-up tests. How is this prevented? To prevent another kidney stone: Drink enough fluid to keep your pee pale yellow. This is the best way to prevent kidney stones. Eat healthy foods. Avoid certain foods as told by your doctor. You may be told to eat less protein. Stay at a healthy weight. Where to find more information National Kidney Foundation (NKF): www.kidney.org [employer] (UCF): www.urologyhealth.org Contact a doctor if: You have pain that gets worse or does not get better with medicine. Get help right away if: You have a fever or chills. You get very bad pain. You get new pain in your belly (abdomen). You pass out (faint). You cannot pee. Summary Kidney stones are rock-like masses that form inside of the kidneys. Kidney stones can cause very bad pain and can block the flow of pee. The stones will often pass out of the body through peeing. Drink enough fluid to keep your pee pale yellow. This information is not intended to replace advice given to you by your health care provider. Make sure you discuss any questions you have with your health care provider. Document Released: 02/02/2009 Document Revised: 01/03/2020 Document Reviewed: 01/03/2020 [employer] Patient Education 2020 [employer]. 02/12/2022 14:28:32 Hematuria, Adult Hematuria, Adult Hematuria is blood in the urine. Blood may be visible in the urine, or it may be identified with a test. This condition can be caused by infections of the bladder, urethra, kidney, or prostate. Otherpossible causes include: Kidney stones. Cancer of the urinary tract. Too much calcium in the urine. Conditions that are passed from parent to child (inherited conditions). Exercise that requires a lot of energy. Infections can usually be treated with medicine, and a kidney stone usually will pass through your urine. If neither of these is the cause of your hematuria, more tests may be needed to identify the cause of your symptoms. It is very important to tell your health care provider about any blood in your urine, even if it ispainless or the blood stops without treatment. Blood in the urine, when it happens and then stops and then happens again, can be a symptom of a very serious condition, including cancer. There is no pain in the initial stages of many urinary cancers. Follow these instructions at home: Medicines Take shrg-tew-mfgxpdc and prescription medicines only as told by your health care provider. If you were prescribed an antibiotic medicine, take it as told by your health care provider. Do notstop taking the antibiotic even if you start to feel better. Eating and drinking Drink enough fluid to keep your urine clear or pale yellow. It is recommended that you drink 3 4 quarts (2.8 3.8 L) a day. If you have been diagnosed with an infection, it is recommended that you drink cranberry juice in addition to large amounts of water. Avoid caffeine, tea, and carbonated beverages. These tend to irritate the bladder. Avoid alcohol because it may irritate the prostate (men). General instructions If you have been diagnosed with a kidney stone, follow your health care provider's instructions about straining your urine to catch the stone. Empty your bladder often. Avoid holding urine for long periods of time. If you are female: ?After a bowel movement, wipe from front to back and use each piece of toilet paper only once. ?Empty your bladder before and after sex. Pay attention to any changes in your symptoms. Tell your health care provider about any changes or any new symptoms. It is your responsibility to get your test results. Ask your health care provider, or the department performing the test, when your results will be ready. Keep all follow-up visits as told by your health care provider. This is important. Contact a health care provider if: You develop back pain. You have a fever. You have nausea or vomiting. Your symptoms do not improve after 3 days. Your symptoms get worse. Get help right away if: You develop severe vomiting and are unable take medicine without vomiting. You develop severe pain in your back or abdomen even though you are taking medicine. You pass a large amount of blood in your urine. You pass blood clots in your urine. You feel very weak or like you might faint. You faint. Summary Hematuria is blood in the urine. It has many possible causes. It is very important that you tell your health care provider about any blood in your urine, even ifit is painless or the blood stops without treatment. Take vkpk-xum-dcwmdzv and prescription medicines only as told by your health care provider. Drink enough fluid to keep your urine clear or pale yellow. This information is not intended to replace advice given to you by your health care provider. Make sure you discuss any questions you have with your health care provider. Document Released: 08/17/2006 Document Revised: 01/11/2020 Document Reviewed: 09/19/2017 [employer] Patient Education 2020 [employer]. Follow Up Care 01/17/2022 11:52:49 With:ISAURA DEL ROSARIO PA-C, URL Address: [address] [facility] [place] [address] When:1 year [facility] 04-26-2022 Hospital Discharge instructions Patient Education 12/24/2021 10:18:28 Kidney Stones, Hhym-zb-Sycl Kidney Stones Kidney stones are rock-like masses that form inside of the kidneys. Kidneys are organs that make pee (urine). A kidney stone may move into other parts of the urinary tract, including: The tubes that connect the kidneys to the bladder (ureters). The bladder. The tube that carries urine out of the body (urethra). Kidney stones can cause very bad pain and can block the flow of pee. The stone usually leaves your body (passes) through your pee. You may need to have a doctor take out the stone. What are the causes? Kidney stones may be caused by: A condition in which certain glands make too much parathyroid hormone (primary hyperparathyroidism). A buildup of a type of crystals in the bladder made of a chemical called uric acid. The body makes uric acid when you eat certain foods. Narrowing (stricture) of one or both of the ureters. A kidney blockage that you were born with. Past surgery on the kidney or the ureters, such as gastric bypass surgery. What increases the risk? You are more likely to develop this condition if: You have had a kidney stone in the past. You have a family history of kidney stones. You do not drink enough water. You eat a diet that is high in protein, salt (sodium), or sugar. You are overweight or very overweight (obese). What are the signs or symptoms? Symptoms of a kidney stone may include: Pain in the side of the belly, right below the ribs (flank pain). Pain usually spreads (radiates) to the groin. Needing to pee often or right away (urgently). Pain when going pee (urinating). Blood in your pee (hematuria). Feeling like you may vomit (nauseous). Vomiting. Fever and chills. How is this treated? Treatment depends on the size, location, and makeup of the kidney stones. The stones will often pass out of the body through peeing. You may need to: Drink more fluid to help pass the stone. In some cases, you may be given fluids through an IV tube put into one of your veins at the hospital. Take medicine for pain. Make changes in your diet to help keep kidney stones from coming back. Sometimes, medical procedures are needed to remove a kidney stone. This may involve: A procedure to break up kidney stones using a beam of light (laser) or shock waves. Surgery to remove the kidney stones. Follow these instructions at home: Medicines Take beac-vkh-uyiezeg and prescription medicines only as told by your doctor. Ask your doctor if the medicine prescribed to you requires you to avoid driving or using heavy machinery. Eating and drinking Drink enough fluid to keep your pee pale yellow. You may be told to drink at least 8 10 glasses of water each day. This will help you pass the stone. If told by your doctor, change your diet. This may include: ?Limiting how much salt you eat. ?Eating more fruits and vegetables. ?Limiting how much meat, poultry, fish, and eggs you eat. Follow instructions from your doctor about eating or drinking restrictions. General instructions Collect pee samples as told by your doctor. You may need to collect a pee sample: ?24 hours after a stone comes out. ?8 12 weeks after a stone comes out, and every 6 12 months after that. Strain your pee every time you pee (urinate), for as long as told. Use the strainer that your doctor recommends. Do not throw out the stone. Keep it so that it can be tested by your doctor. Keep all follow-up visits as told by your doctor. This is important. You may need follow-up tests. How is this prevented? To prevent another kidney stone: Drink enough fluid to keep your pee pale yellow. This is the best way to prevent kidney stones. Eat healthy foods. Avoid certain foods as told by your doctor. You may be told to eat less protein. Stay at a healthy weight. Where to find more information [employer] (NKF): www.kidney.org [facility] (UCF): www.urologyhealth.org Contact a doctor if: You have pain that gets worse or does not get better with medicine. Get help right away if: You have a fever or chills. You get very bad pain. You get new pain in your belly (abdomen). You pass out (faint). You cannot pee. Summary Kidney stones are rock-like masses that form inside of the kidneys. Kidney stones can cause very bad pain and can block the flow of pee. The stones will often pass out of the body through peeing. Drink enough fluid to keep your pee pale yellow. This information is not intended to replace advice given to you by your health care provider. Make sure you discuss any questions you have with your health care provider. Document Released: 02/02/2009 Document Revised: 01/03/2020 Document Reviewed: 01/03/2020 [employer] Patient Education 2020 [employer]. Follow Up Care 12/23/2021 08:36:59 With:Callum Mcgovern MD, Trinity [facility] Address: [facility] [address], [place] [address]- When: Unknown [facility] evaluation + Plan note Future Appointments Appointment Date:01/09/2022 10:30:00 AM Scheduled Provider:ISAURA DEL ROSARIO PA-C Location:[facility] Appointment Type:URO New Patient Diagnostic Tests Pending * PSA Total 12/24/21 [facility] evaluation + Plan note Future Appointments Appointment Date:01/16/2022 11:00:00 AM Scheduled Provider: Location[facility] Future Appointments Appointment Date:02/18/2023 02:00:00 PM Scheduled Provider:ISAURA DEL ROSARIO PA-C Location:[facility] Appointment Type:URO Office Visit Diagnostic Tests Pending * PSA Total 02/12/22 [facility] evaluation + Plan note Future Appointments Appointment Date:02/18/2023 02:00:00 PM Scheduled Provider:ISAURA DEL ROSARIO PA-C Location:[facility] Appointment Type:URO [facility] Diagnosis Onset Date Resolution Status Acute exacerbation of chroni c obstructive airways disease acute URI (upper respiratory infection) acute [facility] Work Phone: evaluation note* Diagnosis Onset Date Resolution Status Acute bronchitis acute Acute exacerbation of chroni c obstructive airways disease acute COPD with acute exacerbation acute Dyslipidemia acute Hypertension acute URI (upper respiratory infection) acute [facility] Work Phone: evaluation note* Diagnosis Persistent atrial fibrillation (CMS/HCC)- Primary Atrial fibrillation High coronary artery calcium score Essential hypertension Unspecified essential hypertension Mixed hyperlipidemia BMI 28.0-28.9,adult Former smoker Personal history of tobacco use, presenting hazards to health High risk medication use documented in this encounter [facility] Work Phone: Evaluation noteNo assessment information available [facility] Work Phone: evaluation note* Diagnosis Onset Date Resolution Status COPD (chronic obstructive pulmonary disease) acute [facility] Work Phone: evaluation note* Diagnosis Persistent atrial fibrillation (Multi)- Primary Atrial fibrillation Mixed hyperlipidemia High coronary artery calcium score Essential hypertension Unspecified essential hypertension BMI 27.0-27.9,adult Former smoker Personal history of tobacco use, presenting hazards to health High risk medication use documented in this encounter [facility] Work Phone: Evaluation note* Diagnosis Onset Date Resolution Status Admit Date COPD (chronic obstructive pulmonary disease) acute October 1:16pm [facility] Work Phone: evaluation note* Diagnosis Pre-operative cardiovascular examination- Primary Persistent atrial fibrillation (Multi) Atrial fibrillation Essential hypertension Unspecified essential hypertension High coronary artery calcium score Mixed hyperlipidemia Former smoker Personal history of tobacco use, presenting hazards to health BMI 27.0-27.9,adult Overweight documented in this encounter [facility] Work Phone: Hospital course Narrative No data available for this section [facility] Discharge instructions No data available for this section [facility] Additional Instructions *Pulmonary Function Test is scheduled for February 16, 2023 at 10am at [facility]. Do NOT take any breathing medication (inhalers, rescue inhaler) 4 hrs prior to testing. Call pulmonary office with any questions.[facility] Work Phone: Progress note No data available for this section [facility] Summary Purpose Family History No Family History Records FoundUnknown Family Member Name Dates Details FH: Parkinson's disease: Fat her(V17.2, Z82.0) Status:Active Heart problem: Mother Status:Active Unknown Family Member Name Dates Details FH: Parkinson's disease: Fat her(V17.2, Z82.0) Status:Active Heart problem: Mother Status:Active Unknown Family Member Name Dates Details FH: Parkinson's disease: Fat her(V17.2, Z82.0) Status:Active Heart problem: Mother Status:Active Unknown Family Member Name Dates Details FH: Parkinson's disease: Fat her(V17.2, Z82.0) Status:Active Heart problem: Mother Status:Active Relationship Condition Age at Onset Recorded Date/T daphnie Not Specified No pertinent family history Unknown Relationship Condition Age at Onset Recorded Date/T daphnie Not Specified Hypertension Unknown Unknown Family Member Name Dates Details FH: Parkinson's disease: Fat her(V17.2, Z82.0) Status:Active Heart problem: Mother Status:Active Unknown Family Member Name Dates Details FH: Parkinson's disease: Fat her(V17.2, Z82.0) Status:Active Heart problem: Mother Status:Active Relationship Condition Age at Onset Recorded Date/T daphnie Not Specified Hypertension Unknown father Unknown Not Specified Unknown Relationship Condition Age at Onset Recorded Date/T daphnie Not Specified Hypertension Unknown father Unknown mother Unknown Advance Directives No Advanced Directives Records Found Advance Directive Response Recorded Date/ Time Advance Directives No January 22 8 7:41pm Advance Directive Response Recorded Date/ Time Advance Directives No January 22 8 6:41pm Chief Complaint * LEXI TORRES is being seen for a 6 month follow-up of. * Patient is in the office for follow-up for the problems noted below. He has had no breakthrough atrial fibrillation while he is on dofetilide. His EKG confirmed that. His pressure is uncontrolled hislabs have been up-to-date and have been under excellent. He reports no bleeding problems. His weight remains above target something are brought his attention. * Assessment/recommendations: * 1 persistent atrial fibrillation with rapid ventricular response status post cardioversion October2019, currently in sinus rhythm on dofetilide and long- term anticoagulation with Xarelto with no breakthrough events. Present medical therapy will left unchanged * 2 hypertension currently under control on beta theodora and amlodipine * 3 overweight, encouraged patience diet control * 4 reactive airway disease on Advair and Ventolin which will continue * 5 high-risk medication with antiarrhythmic and anticoagulants, * 6 elevated coronary calcium score over 1000, stress test 2019 was normal. Presently on aspirin and statin. LDL on target * Patient will follow up with me in the office in 6 months * LEXI TORRES is being seen for a 6 month follow-up of. * Patient is in the office for follow-up for the problems noted below. Since he was last seen in the office he was in the hospital for asthma requiring therapy and follow-up with pulmonary medicine. Nocardiac events. He is in sinus rhythm on the dofetilide and is chronically anticoagulated. EKG reveals normal sinus rhythm with normal intervals. His pressure is elevated today. His weight remains above target. He reports no breakthrough atrial fibrillation and no complications with medications. Heis hypertensive on current medical therapy and adjustments were made as noted below. * Assessment/recommendations: * 1 persistent atrial fibrillation status post cardioversion October 2019, currently in sinus rhythmon dofetilide and long-term anticoagulation with Xarelto with no breakthrough events. Present medical therapy will left unchanged * 2 hypertension currently not under control on beta theodora and amlodipine, will add valsartan and follow BP readings in few weeks along with basic metabolic profile. * 3 overweight, encouraged patience diet control * 4 reactive airway disease on Advair and Ventolin which will continue, he follows with pulmonary medicine * 5 high-risk medication with antiarrhythmic and anticoagulants, * 6 elevated coronary calcium score over 1000, stress test 2020 was normal. Presently on aspirin and statin. LDL on target * 7 hyperlipidemia on statin therapy. Lipid profile is scheduled in few weeks * Patient will follow up with me in the office in 6 months Chief Complaint and Reason for Visit Chief Complaint Admit Date CEA: 6 mo f/u COPD October 11, 2024 1:16pm N20.0 R10.9 October 12, 2024 12:23pm Reason for Visit Admit Date COPD (chronic obstructive pulmonary dise ase) October 11, 2024 1:16pm Chief Complaint sent by Reason for Visit Acute exacerbation o f chronic obstructive airways disease URI (upper respiratory infection) Chief Complaint sent by Reason for Visit Acute bronchitis Acute exacerbation of chronic obstructive airways disease COPD with acute exacerbation Dyslipidemia Hypertension URI (upper respiratory infection) Chief Complaint N20.0 Z12.5 Chief Complaint N20.0 Z12.5 6 mo f/u COPD Reason for Visit COPD (chronic obstru ctive pulmonary disease) Chief Complaint Admit Date CEA: 6 mo f/u COPD October 11, 2024 1:16pm Chief Complaint Admit Date CEA: 6 mo f/u COPD October 11, 2024 1:16pm N20.0 R10.9 October 12, 2024 12:23pm kub November 22, 2024 11: 10am Reason for Referral Specialty Diagnoses / Procedures Referred By Magdalene angeles Referred To Contact Diagnoses Persistent atrial fibrillation (CMS/HCC) Procedures ECG 12 Lead Sandra Rai MD [address] [place], [place] [address]micha Szymanski [address], [address] [address] Referral ID Status Reason Start Date Expiration Date V isits Requested Visits Authorized [id number] Authorized 11/26/2023 11/25/2024 1 1 Specialty Diagnoses / Procedures Referred By Magdalene angeles Referred To Contact Cardiology Diagnoses Persistent atrial fibrillation (CMS/HCC) Procedures Follow Up In Cardiology Sandra Rai MD [address], [address] [address] Sandra Rai MD [address], [address] [address] Referral ID Status Reason Start Date Expiration Date V isits Requested Visits Authorized [id number] Authorized 11/26/2023 11/25/2024 1 1 Additional Source Comments (unrecognized sect ion and content) No Status Records FoundNo Status Records FoundNo Status Records FoundNo Status Records FoundNo Status Records FoundNo Status Records FoundNo Status Records FoundNo Status Records FoundNo Status Records Found INFORMATION SOURCE (unrecogn ized section and content) DATE CREATED AUTHOR 01/13/2020 [facility] DATE CREATED AUTHOR AUTHOR'S ORGANIZ ATION 10/15/2021 [facility] dical Specialist DATE CREATED AUTHOR AUTHOR'S ORGANIZ ATION 03/04/2022 [facility] DATE CREATED AUTHOR AUTHOR'S ORGANIZ ATION 05/23/2023 [facility] DATE CREATED AUTHOR AUTHOR'S ORGANIZ ATION 05/23/2023 [facility] DATE CREATED AUTHOR AUTHOR'S ORGANIZ ATION 06/18/2023 [facility] DATE CREATED AUTHOR AUTHOR'S ORGANIZ ATION 11/26/2024 [facility] DATE CREATED AUTHOR AUTHOR'S ORGANIZ ATION 11/29/2024 [facility] DATE CREATED AUTHOR AUTHOR'S ORGANIZ ATION 12/09/2024 [facility] Manager Lvn Team (unrecognized sect ion and content) Team Status: Active Member Role Status Dates Zane Velasco DO Primary Care Provider Active Team Status: Inactive Member Role Status Dates Zane Velasco DO Primary Care Provider Active Herminio Rogel , Emergency Provider Active Filipe Reynolds , Admit Provider Active Asif Bautista MD Attending Provider Active Ozzy Chan MD Other Provider Active Team Status: Active Member Role Status Dates Zane Velasco DO Primary Care Provider Active Herminio Rogel , Emergency Provider Active Filipe Reynolds DO Admit Provider, Attending Nima tuttle Active Hall Clerk Relationship Specialty Start Date End Date Zane Velasco DO [address] [place] [phone] PCP - General 09/28/19 Team Status: Inactive Member Role Status Dates Zane Velasco DO Primary Care Provider Active St art: February 15, 2024 End: February 15, 2024 Isaura Del Rosario PA-C Attending Provider Active Start: February 15, 2024 End: February 15, 2024 Team Status: Inactive Member Role Status Dates Zane Velasco DO Primary Care Provider Active St art: March 08, 2024 End: March 08, 2024 Ozzy Chan MD Attending Provider Active Start: March 08, 2024 End: March 08, 2024 Hall Clerk Relationship Specialty Start Date End Date Zane Velasco DO [address] [phone] PCP - General 09/28/19 Team Status: Inactive Member Role Status Dates Zane Velasco DO Primary Care Provider Active St art: October 11, 2024 End: October 11, 2024 Ozzy Chan MD Attending Provider Active Start: October 11, 2024 End: October 11, 2024 Team Status: Inactive Member Role Status Dates Zane Velasco DO Primary Care Provider Active St art: October 12, 2024 End: October 12, 2024 Isaura Del Rosario PA-C Attending Provider Active Start: October 12, 2024 End: October 12, 2024 Team Status: Inactive Member Role Status Dates Zane Velasco DO Primary Care Provider Active St art: November 22, 2024 End: November 22, 2024 Nick Metz MD Attending Provider Active St art: November 22, 2024 End: November 22, 2024 Hall Clerk Relationship Specialty Start Date End Date Zane Velasco DO [address] [place] [address] PCP - General Family Medicine 02/17/23 Kevin Marie DO [address] [place] [address] PCP - ACO Reach 10/30/23 Hall Clerk Relationship Specialty Start Date End Date Zane Velasco DO [address] [place] [phone] PCP - General 09/28/19 Goals (unrecognized section and content) Goals may be documented in a n alternate section REASON FOR VISIT (unrecogniz ed section and content) Reason Comments Follow-up 6 months Specialty Diagnoses / Procedures Referred By Contac t Referred To Contact Diagnoses Persistent atrial fibrillation (CMS/HCC) Procedures ECG 12 Lead Sandra Rai MD [address] [place] [address] 2, [address] [address] Referral ID Status Reason Start Date Expiration Date V isits Requested Visits Authorized [id number] Authorized 11/26/2023 11/25/2024 1 1 Reason Comments Follow-up 6 m Specialty Diagnoses / Procedures Referred By Contac t Referred To Contact Cardiology Diagnoses Persistent atrial fibrillation (Multi) Procedures Follow Up In Cardiology Sandra Rai MD [address] [place] [address] [address], [address] [address] Phone: tel: fax: Sandra Rai MD [address] [place] [address] 2, [address] [address] Phone: tel: fax: Referral ID Status Reason Start Date Expiration Date V isits Requested Visits Authorized [id number] Authorized 11/26/2023 11/25/2024 1 1 Reason Comments Pre-op Clearance [id number] cheduled 12/15/24 Specialty Diagnoses / Procedures Referred By Contac t Referred To Contact Diagnoses Pre-operative cardiovascular examination Persistent atrial fibrillation (Multi) Procedures ECG 12 Lead Sandra Rai MD [address] [place] [address] 2, [address] [address] Phone: tel: fax: Referral ID Status Reason Start Date Expiration Date V isits Requested Visits Authorized [id number] Authorized 12/08/2024 12/08/2025 1 1 FOR RECORDS PERTAINING TO PATIENTS WHO ARE OR HAVE BEEN ENROLLED IN A CHEMICAL DEPENDENCY/SUBSTANCEABUSE PROGRAM, SOME INFORMATION MAY BE OMITTED. This clinical summary was aggregated from multiple sources. Caution should be exercised in using it in the provision of clinical care. This summary normalizes information from multiple sources, and as a consequence, information in this document may materially change the coding, format and clinical context of patient data. In addition, data may be omitted in some cases. CLINICAL DECISIONS SHOULD BE BASED ON THE PRIMARY CLINICAL RECORDS. [employer] [facility]. provides no warranty or guarantee of the accuracy or completeness of information in this document.
[2024-12-15] MEDS: LACTATED RINGER'S SOLUTION 1,000 ML 50 ML IV (08:06)
[2024-12-15] MEDS: CEFAZOLIN SODIUM 2 GM/50 ML D5W PREMIX IV (09:29)
--- NOTE | 2024-12-15 10:05 | PM.URSON ---
Urology Surgery Operative Note Operative Note Procedure Date: 12/15/24 Time Out Performed: yes Pre-op Diagnosis: Left ureteral calculus Post-op Diagnosis: same as pre-op Procedures performed: 1. Cystoscopy. 2. Left rigid ureteral dilation. 3. Left ureteroscopy. 4. Thulium laser lithotripsy of left ureteral calculus. 5. Stone fragment basket extraction. Anesthesia: General-LMA Primary Surgeon: Nick Haley Complications: None Estimated blood loss (mL): 2 Findings: Alexander left ureteral calculus at L5 Specimens: Left ureteral calculus fragments Drains: None Indications for Procedures: This gentleman has a 5 mm left ureteral calculus that he is unable to pass. He now presents for definitive ureteroscopic stone manipulation and possible left stent placement. He has signed an informed consent after risks were explained. Detailed description of Procedure: The patient was brought to the operating room and placed on the operating room table in the supine position. SCDs were placed on the lower extremities and turned on and functioning during the entire case. Timeout was done by all parties in the room. We all agreed upon the patient's identification and the planned procedures for this patient. Genn. anesthesia was then administered. The patient was then repositioned into the modified dorsal lithotomy position. All pressure points were satisfactorily padded. Genitalia were sterilely prepped and draped in usual fashion. I started by passing a 22 Croatian Olympus cystoscope per urethra and into the bladder. Anterior urethra was normal. Prostatic urethra revealed bilobar obstruction. Panendoscopy in the bladder showed high-grade trabeculation with open diverticuli diffusely. I then passed a Glidewire through the scope and cannulated the left ureter. I was able to get it up to the kidney without difficulty. There was an E flux of urinary debris coming from the left ureter. The left ureter was dilated with an 8 Croatian rigid dilator. The scope was then removed. A semirigid ureteroscope was then passed into the bladder and up the left ureter. I was able to get up to the L5 position which is where the stone was sitting. This was an irregular oblong stone. I used 272 Angstrom laser fiber. Contact was made with the stone and we began using the thulium laser at 6 W in the fragment mode. The stone was fragmented to multiple pieces. A 0 tip nitinol basket was used to engage pieces and dumped them in the base of the bladder. I went up and down the ureter numerous times clearing out fragments until the left ureter was free of stone. The ureteroscope was then removed and the cystoscope was then passed back in the bladder. The Ilich evacuator was used to get all stone pieces out from the base of the bladder. These were sent for stone analysis. I elected not to place a stent. The bladder was drained of its contents and the scope was then removed. He was then transferred to a [facility] bed and wheeled to PACU in stable condition.
--- NOTE | 2024-12-15 10:16 | PC.NURSE ---
1016 added oxygen to patient he is too sleepy and oxygen drops to 87%
== END 2024-12-15 11:26 | disposition home or self-care (01) ==
PROVIDERS: PCP Family Medicine; Visit Provider Urology
PROC: (CPT 52353; principal; 2024-12-15 08:40)
DX: N20.1 Calculus of ureter (principal); Z79.01 Long term (current) use of anticoagulants; I48.91 Unspecified atrial fibrillation; N32.89 Other specified disorders of bladder; E78.5 Hyperlipidemia, unspecified
CPT/HCPCS: 52353; 36415; 76000; 82365; 99999; J0690; J1100; J2405; J2704; J3010